=== PATIENT | female | born 1985 | race Caucasian/White ===

== ENCOUNTER 2016-11-14 21:31 | Emergency (ER) | payer OTHER ==
[2016-11-14] MEDS ORDERED: MAG HYDROX/AL HYDROX/SIMETH 30 ML CUP PO STA (21:50)
[2016-11-14] MEDS ORDERED: LIDOCAINE VISCOUS 2% 15 ML CUP MUCOUS MEM STA (21:50)
[2016-11-14] MEDS ORDERED: FAMOTIDINE 20 MG TAB PO STA (21:52)
--- NOTE | 2016-11-14 22:04 | XR ---
EXAMINATION TYPE: XR chest 2V DATE OF EXAM: 11/14/2016 10:01 PM COMPARISON: NONE HISTORY: Burning sensation of the chest. No history of heart or lung disease. TECHNIQUE: Frontal and lateral views of the chest are obtained. FINDINGS: There is no focal air space opacity, pleural effusion, or pneumothorax seen. The cardiac silhouette size is within normal limits. The osseous structures are intact. IMPRESSION: No acute cardiopulmonary process.
--- NOTE | 2016-11-14 22:22 | ED ---
General Adult HPI - General Chief complaint: Chest Pain Stated complaint: burning in chest Time Seen by Provider: 11/14/16 21:46 Source: patient, family, RN notes reviewed Mode of arrival: wheelchair Limitations: no limitations - History of Present Illness Initial comments: 31-year-old female presenting for chest pain. Patient states she feels a burning sensation in her chest for the past week. She also states she has some mild epigastric pain associated. States worse at nighttime when she lays down. She denies any history of these symptoms previously. She denies any shortness of breath. She denies any fevers or chills. She denies any other abdominal pain. She denies any nausea or vomiting. She is not tried any medications that helped this this point. She denies any significant medical history. - Related Data Home Medications Medication Instructions Recorded Confirmed Acetaminophen Tab [Tylenol Tab] 650 mg PO Q4H 11/14/16 11/14/16 Previous Rx's Medication Instructions Recorded HYDROcodone/APAP 5-325MG [[place] 1 tab PO Q6HR PRN #8 tab 11/14/16 5-325] Omeprazole [PriLOSEC] 20 mg PO AC-BRKFST #30 cap 11/14/16 Allergies Allergy/AdvReac Type Severity Reaction Status Date / Time No Known Allergies Allergy Verified 11/14/16 22:08 Review of Systems ROS Statement: Those systems with pertinent positive or pertinent negative responses have been documented in the HPI. ROS Other: All systems not noted in ROS Statement are negative. Past Medical History Past Medical History: No Reported History History of Any Multi-Drug Resistant Organisms: None Reported Past Surgical History: Section Past Psychological History: Depression Smoking Status: Current every day smoker Past Alcohol Use History: Occasional Past Drug Use History: None Reported General Exam - General Exam Comments Initial Comments: General: Awake and Alert. No acute distress. Does not appear acutely ill. Obese. Eyes: LY, EOM intact. No nystagmus. No scleral icterus. HENT: Atraumatic, normocephalic. Mucous membranes moist. Trachea midline. Neck: The neck is supple, there is no tenderness or JVD. Cardiovascular: Regular rate and rhythm. No murmur, rub, or gallop is appreciated. Distal pulses intact. Respiratory: Lungs are clear to auscultation bilaterally. No wheezes, rales, rhonchi. No respiratory distress. Gastrointestinal: Soft, mild epigastric tenderness. No rebound or guarding. Non -distended. No masses or organomegaly noted. No CVA tenderness. Musculoskeletal: Reproducible sternal tenderness on exam. Remainder of MSK exam with no tenderness. Normal ROM. No gross deformity. No strength deficits. Neurological: A&Ox3. CN II-XII grossly intact, There are no obvious motor or sensory deficits. Coordination appears grossly intact. Speech is normal. Skin: Skin is warm and dry and no rashes or lesions are noted. Psychiatric: Cooperative, appropriate mood & affect, normal judgment. Limitations: no limitations Course Vital Signs 11/14/16 21:41 Temperature 98.3 F Pulse Rate 97 Respiratory 18 Rate Blood Pressure 168/77 O2 Sat by Pulse 99 Oximetry EKG Findings - EKG Comments: EKG Findings:: EKG 22:36. Normal sinus rhythm. Rate 79. AL 164. QRS 90. QT/ QTc 388/444. Normal axis. No STEMI. Normal EKG. Medical Decision Making - Medical Decision Making 31-year-old female presenting for epigastric and chest burning sensation. Symptoms consistent with GERD. Low suspicion of ACS, PE, or severe intrathoracic process at this time. Vitals stable, no hypoxia. Exam with mild epigastric tenderness without evidence of acute peritonitis at this time. Chest x-ray was performed which was unremarkable. EKG is also unremarkable. Patient was given medications with improvement of her symptoms. Discussed starting her on omeprazole for symptomatic management. Discussed dietary modifications. Discussed close follow-up with PCP. Discussed concerning signs symptoms for immediate return to the ED. Patient is agreeable with plan and discharge home. - EKG Data -: EKG Interpreted by Me EKG shows normal: sinus rhythm Rate: normal - Radiology Data Radiology results: report reviewed, image reviewed Disposition Clinical Impression: GERD (gastroesophageal reflux disease), Chest pain, Abdominal pain Disposition: HOME SELF-CARE Condition: Stable Instructions: Chest Pain (ED), Abdominal Pain (ED), Gastroesophageal Reflux Disease (ED) Prescriptions: HYDROcodone/APAP 5-325MG [[place] 5-325] 1 tab PO Q6HR PRN #8 tab PRN Reason: Pain Omeprazole [PriLOSEC] 20 mg PO AC-BRKT #30 cap Referrals: None,Stated [Primary Care Provider] - 1-2 days Time of Disposition: 23:00
[2016-11-14] MEDS ORDERED: ONDANSETRON ODT 4 MG TAB PO STA (22:47)
[2016-11-14] MEDS: HYDROcodone/APAP 5-325MG 1 EACH TAB PO STA (22:59)
[2016-11-14 23:06] VITALS: BP 127/76; PULSE 78; RESP 16; TEMP 98.9
== END 2016-11-14 23:05 | disposition home or self-care (01) ==
LOC: EC 21:31
DX: K21.9 Gastro-esophageal reflux disease without esophagitis (principal); R07.9 Chest pain, unspecified; Z79.899 Other long term (current) drug therapy
CPT/HCPCS: 71020; 93005; 99285

== ENCOUNTER 2020-03-19 17:13 | Inpatient (IN) | payer BC, OTHER ==
[2020-03-19] MEDS ORDERED: ONDANSETRON 4 MG/2 ML VIAL IVP STA (17:28)
[2020-03-19] MEDS ORDERED: SODIUM CHLORIDE 0.9% 1,000 ML IV STA (17:28)
[2020-03-19] MEDS ORDERED: MORPHINE SULFATE 2 MG/ML SYRINGE IVP STA (17:28)
--- NOTE | 2020-03-19 17:33 | ED ---
General Adult HPI - General Chief complaint: Abdominal Pain Stated complaint: diverticulitis Time Seen by Provider: 03/19/20 17:20 Source: patient, family, RN notes reviewed, old records reviewed (Discharge papers from [facility]) Mode of arrival: ambulatory Limitations: no limitations - History of Present Illness Initial comments: Patient is a pleasant 34-year-old female presenting to the emergency department with abdominal discomfort. Patient did have similar symptoms around 7 years ago and was diagnosed with diverticulitis then. Patient has had symptoms now for the past 3 days. Patient has diffuse abdominal discomfort. Decreased appetite, minimal nausea. Patient did feel constipated and then took a laxative with diarrhea following this. Unclear if there has been any mucus or blood. Patient is currently on her menses. Patient did go to [facility] early this morning around 4 AM. Patient was discharged around 5:30. There was an intentional transfer however reportedly there was concerns refusal of transfer here and the other 2 ) hospitals were full. Patient does have discharge paperwork showing diagnosis of diverticulitis. Patient reportedly did have fever this morning. Family is present that does help provide history. - Related Data Home Medications Medication Instructions Recorded Confirmed Famotidine [Pepcid] 40 mg PO HS 12/02/16 12/02/16 Metoclopramide [Reglan] 10 mg PO AC-TID 12/02/16 12/02/16 Previous Rx's Medication Instructions Recorded Hydrocodone/Acetaminophen [[place] 1 - 2 each PO Q6HR PRN #20 tab 12/03/16 5-325] Allergies Allergy/AdvReac Type Severity Reaction Status Date / Time No Known Allergies Allergy Verified 03/19/20 17:32 Review of Systems ROS Statement: Those systems with pertinent positive or pertinent negative responses have been documented in the HPI. ROS Other: All systems not noted in ROS Statement are negative. Constitutional: Reports: fever, chills Eyes: Denies: eye pain ENT: Denies: ear pain Respiratory: Denies: dyspnea Cardiovascular: Denies: chest pain Endocrine: Reports: fatigue Gastrointestinal: Reports: as per HPI, abdominal pain, nausea. Denies: vomiting Genitourinary: Denies: dysuria Musculoskeletal: Denies: back pain Skin: Denies: rash Neurological: Denies: weakness Past Medical History Past Medical History: No Reported History History of Any Multi-Drug Resistant Organisms: None Reported Past Surgical History: Section Additional Past Surgical History / Comment(s): 3 sections Past Anesthesia/Blood Transfusion Reactions: No Reported Reaction Additional Past Anesthesia/Blood Transfusion Reaction / Comment(s): patient has never had a blood transfusion Past Psychological History: No Psychological Hx Reported, Depression Past Alcohol Use History: Occasional Past Drug Use History: None Reported - Past Family History Mother History Unknown: Yes General Exam Limitations: no limitations General appearance: alert, in no apparent distress Head exam: Present: normocephalic Eye exam: Present: normal appearance Neck exam: Present: normal inspection Respiratory exam: Present: normal lung sounds bilaterally Cardiovascular Exam: Present: regular rate, normal rhythm Expanded Peripheral pulses: 2+: Dorsalis Pedis (R), Dorsalis Pedis (L) GI/Abdominal exam: Present: soft, tenderness (Mild to moderate diffuse tenderness), normal bowel sounds. Absent: distended, guarding, rebound, rigid, pulsatile mass Extremities exam: Present: normal inspection Neurological exam: Present: alert Psychiatric exam: Present: normal affect, normal mood Skin exam: Present: normal color Course Vital Signs 03/19/20 17:15 Temperature 98.4 F Pulse Rate 103 H Respiratory 18 Rate Blood Pressure 135/90 O2 Sat by Pulse 99 Oximetry - Reevaluation(s) Reevaluation #1: 03/19/20 17:33 We are attempting to get further records from [facility]. 03/19/20 18:58 Patient does meet sepsis criteria diagnosed at 1850. Blood culture and lactic acid ordered. IV antibiotics will be ordered. Medical Decision Making - Medical Decision Making Patient reevaluated. Patient and family updated. Case discussed with Dr. Baker, who will admit covering for surgical call. He is also made aware of our radiologist interpretation. - Lab Data Result diagrams: 03/19/20 18:15 Lab Results 03/19/20 03/19/20 03/19/20 Range/Units 18:03 18:03 18:15 WBC 12.7 H (3.8-10.6) k/uL RBC 3.84 (3.80-5.40) m/uL Hgb 13.0 (11.4-16.0) gm/dL Hct 37.6 (34.0-46.0) % MCV 97.9 (80.0-100.0) fL MCH 33.8 (25.0-35.0) pg MCHC 34.5 (31.0-37.0) g/dL RDW 13.3 (11.5-15.5) % Plt Count 292 (150-450) k/uL Neutrophils % 76 % Lymphocytes % 15 % Monocytes % 5 % Eosinophils % 3 % Basophils % 0 % Neutrophils # 9.7 H (1.3-7.7) k/uL Lymphocytes # 1.9 (1.0-4.8) k/uL Monocytes # 0.6 (0-1.0) k/uL Eosinophils # 0.4 (0-0.7) k/uL Basophils # 0.0 (0-0.2) k/uL PT (9.0-12.0) sec INR (<1.2) APTT (22.0-30.0) sec Urine Color Red Urine Appearance Cloudy H (Clear) Urine pH 5.5 (5.0-8.0) Ur Specific [place] 1.019 (1.001-1.035) Urine Protein 1+ H (Negative) Urine Glucose (UA) Negative (Negative) Urine Ketones 2+ H (Negative) Urine Blood Large H (Negative) Urine Nitrite Negative (Negative) Urine Bilirubin Negative (Negative) Urine Urobilinogen <2.0 (<2.0) mg/dL Ur Leukocyte Esterase Small H (Negative) Urine RBC >182 H (0-5) /hpf Urine WBC 13 H (0-5) /hpf Ur Squamous Epith Cells 4 (0-4) /hpf Urine Bacteria Occasional H (None) /hpf Urine Mucus Rare H (None) /hpf Urine HCG, Qual Not Detected (Not Detectd) 03/19/20 Range/Units 18:15 WBC (3.8-10.6) k/uL RBC (3.80-5.40) m/uL Hgb (11.4-16.0) gm/dL Hct (34.0-46.0) % MCV (80.0-100.0) fL MCH (25.0-35.0) pg MCHC (31.0-37.0) g/dL RDW (11.5-15.5) % Plt Count (150-450) k/uL Neutrophils % % Lymphocytes % % Monocytes % % Eosinophils % % Basophils % % Neutrophils # (1.3-7.7) k/uL Lymphocytes # (1.0-4.8) k/uL Monocytes # (0-1.0) k/uL Eosinophils # (0-0.7) k/uL Basophils # (0-0.2) k/uL PT 10.2 (9.0-12.0) sec INR 1.0 (<1.2) APTT 26.9 (22.0-30.0) sec Urine Color Urine Appearance (Clear) Urine pH (5.0-8.0) Ur Specific [place] (1.001-1.035) Urine Protein (Negative) Urine Glucose (UA) (Negative) Urine Ketones (Negative) Urine Blood (Negative) Urine Nitrite (Negative) Urine Bilirubin (Negative) Urine Urobilinogen (<2.0) mg/dL Ur Leukocyte Esterase (Negative) Urine RBC (0-5) /hpf Urine WBC (0-5) /hpf Ur Squamous Epith Cells (0-4) /hpf Urine Bacteria (None) /hpf Urine Mucus (None) /hpf Urine HCG, Qual (Not Detectd) - Radiology Data Radiology results: image reviewed (KUB shows no evidence of free air or bowel obstruction. Oral contrast extending to rectum. CT of the same day had concern with localized perforation and weak.) Critical Care Time Critical Care Time: Yes Total Critical Care Time: 33 Disposition Clinical Impression: Diverticulitis Disposition: ADMITTED IP TO THIS HOSP Is patient prescribed a controlled substance at d/c from ED?: No Referrals: None,Stated [Primary Care Provider] - 1-2 days Decision Time: 18:58
[2020-03-19 18:27] LABS: Basophils % (A) 0 %; Eosinophils # (A) 0.4 k/uL (0-0.7); Eosinophils % (A) 3 %; HCT 37.6 % (34.0-46.0); Lymphocytes # (A) 1.9 k/uL (1.0-4.8); Lymphocytes % (A) 15 %; MCH 33.8 pg (25.0-35.0); MCHC 34.5 g/dL (31.0-37.0); MCV 97.9 fL (80.0-100.0); Mean Platelet Volume 7.5; Monocytes # (A) 0.6 k/uL (0-1.0); Monocytes % (A) 5 %; Neutrophils # (A) 9.7 k/uL (1.3-7.7); Neutrophils % (A) 76 %; Platelet Count 292 k/uL (150-450); RBC 3.84 m/uL (3.80-5.40); RDW 13.3 % (11.5-15.5); WBC 12.7 k/uL (3.8-10.6)
[2020-03-19 18:36] LABS: Partial Thromboplastin Time 26.9 sec (22.0-30.0); Prothrombin Time 10.2 sec (9.0-12.0)
[2020-03-19 18:40] LABS: Appearance,Urine Cloudy (Clear); Bacteria,Urine Occasional /hpf; Bilirubin,Urine Negative (Negative); Blood,Urine Large (Negative); Color,Urine Red; Glucose,Urine (UA) Negative (Negative); Ketones,Urine 2+ (Negative); Leukocyte Esterase,Urine Small (Negative); Mucus,Urine Rare /hpf; Nitrite,Urine Negative (Negative); PH, Urine 5.5 (5.0-8.0); Protein,Urine 1+ (Negative); RBC,Urine >182 /hpf (0-5); Specific Gravity,Urine 1.019 (1.001-1.035); Squamous Epithelial Cell,Urine 4 /hpf (0-4); Urobilinogen,Urine <2.0 mg/dL (<2.0); WBC,Urine 13 /hpf (0-5)
--- NOTE | 2020-03-19 18:51 | XR ---
EXAMINATION TYPE: XR KUB DATE OF EXAM: 03/19/2020 Comparison: Correlation outside CT same day Clinical History: 34-year-old female with abdominal pain, left-sided. Findings: Oral contrast has progressed into the colon. Cholecystectomy clips. No dilated small bowel or air-flu id levels. Visualized lung bases are clear. No evidence for free intraperitoneal air. Bilateral tubal ligation clips. Impression: No evidence for free air or bowel obstruction. Oral contrast extending to the rectum. The distal sigm oid acute diverticulitis with localized perforation and leak demonstrated on the outside CT of the sa me day.
[2020-03-19 18:54] LABS: ALT 9 U/L (4-34); AST 13 U/L (14-36); African American GFR (CKD) >90 (>60 ml/min/1.73 sqM); Albumin 3.6 g/dL (3.5-5.0); Alkaline Phosphatase 72 U/L (38-126); Amylase 40 U/L (30-110); Anion Gap 9 mmol/L; Blood Urea Nitrogen 13 mg/dL (7-17); Calcium 8.9 mg/dL (8.4-10.2); Carbon Dioxide 22 mmol/L (22-30); Chloride 104 mmol/L (98-107); Glucose 78 mg/dL (74-99); Non-African American GFR(CKD) >90 (>60 ml/min/1.73 sqM); Potassium 3.7 mmol/L (3.5-5.1); Sodium 135 mmol/L (137-145); Total Bilirubin 0.5 mg/dL (0.2-1.3); Total Protein 6.4 g/dL (6.3-8.2)
[2020-03-19] MEDS ORDERED: ONDANSETRON 4 MG/2 ML VIAL IVP PRN (18:59)
[2020-03-19] MEDS ORDERED: NALOXONE 0.4 MG/ML 1 ML VIAL IV PRN (18:59)
[2020-03-19] MEDS: SODIUM CHLORIDE 0.9% 1,000 ML IV SCH (19:32)
[2020-03-19] MEDS: metroNIDAZOLE-NS PMX 500 MG in SALINE 1 100ML.BAG IVPB SCH (19:49)
[2020-03-20] MEDS: MORPHINE SULFATE 4 MG/ML SYRINGE IV PRN ×2 (01:13→22:27)
[2020-03-20] MEDS: metroNIDAZOLE-NS PMX 500 MG in SALINE 1 100ML.BAG IVPB SCH ×4 (01:13→19:49)
[2020-03-20] MEDS: SODIUM CHLORIDE 0.9% 1,000 ML IV SCH ×3 (01:14→22:33)
[2020-03-20] MEDS: LEVOFLOXACIN 750MG-D5W PMX 750 MG in DEXTROSE/WATER 1 150ML.BAG IVPB SCH (04:37)
[2020-03-20] MEDS: PANTOPRAZOLE 40 MG/10 ML VIAL IV SCH (07:26)
[2020-03-20 08:04] LABS: Basophils % (A) 0 %; Eosinophils # (A) 0.4 k/uL (0-0.7); Eosinophils % (A) 4 %; HCT 34.9 % (34.0-46.0); HGB 12.1 gm/dL (11.4-16.0); Lymphocytes # (A) 1.3 k/uL (1.0-4.8); Lymphocytes % (A) 12 %; MCH 33.8 pg (25.0-35.0); MCHC 34.6 g/dL (31.0-37.0); MCV 97.6 fL (80.0-100.0); Mean Platelet Volume 7.5; Monocytes # (A) 0.6 k/uL (0-1.0); Monocytes % (A) 5 %; Neutrophils # (A) 8.6 k/uL (1.3-7.7); Neutrophils % (A) 79 %; Platelet Count 283 k/uL (150-450); RBC 3.58 m/uL (3.80-5.40); RDW 13.3 % (11.5-15.5); WBC 10.9 k/uL (3.8-10.6)
--- NOTE | 2020-03-20 09:36 | P.GSHP ---
History of Present Illness H&P Date: 03/20/20 Chief Complaint: Diverticulitis This a 30 pleural female who was admitted through the emergency room with complaints of left-sided abdominal pain. Patient's CAT scan was consistent with diverticulitis. Patient states he feels better today. Past Medical History Past Medical History: No Reported History History of Any Multi-Drug Resistant Organisms: None Reported Past Surgical History: Section, Cholecystectomy Additional Past Surgical History / Comment(s): 3 sections, with all three they vervived her Past Anesthesia/Blood Transfusion Reactions: No Reported Reaction Additional Past Anesthesia/Blood Transfusion Reaction / Comment(s): patient has never had a blood transfusion Past Psychological History: No Psychological Hx Reported, Depression Smoking Status: Current every day smoker Past Alcohol Use History: Occasional Past Drug Use History: None Reported Additional Drug Use History / Comment(s): smokes half a pack of cigarettes a day - Past Family History Mother History Unknown: Yes Additional Family Medical History / Comment(s): thyroid cancer, CVA Medications and Allergies Home Medications Medication Instructions Recorded Confirmed Type No Known Home Medications 03/19/20 03/19/20 History Allergies Allergy/AdvReac Type Severity Reaction Status Date / Time No Known Allergies Allergy Verified 03/19/20 20:54 Surgical - Exam Vital Signs Temp Pulse Resp BP Pulse Ox 98.4 F 103 H 18 135/90 99 03/19/20 17:15 03/19/20 17:15 03/19/20 17:15 03/19/20 17:15 03/19/20 17:15 - General well developed, well nourished, no distress - Eyes PERRL - ENT normal pinna - Neck no masses - Respiratory normal expansion - Cardiovascular Rhythm: regular - Abdomen Mild left lower quadrant pain. There is no rebound or guarding Abdomen: soft Results - Labs 03/20/20 07:45 03/19/20 18:15 Abnormal Lab Results - Last 24 Hours (Table) 03/19/20 03/19/20 03/19/20 Range/Units 18:03 18:15 18:15 WBC 12.7 H (3.8-10.6) k/uL RBC (3.80-5.40) m/uL Neutrophils # 9.7 H (1.3-7.7) k/uL Sodium 135 L (137-145) mmol/L AST 13 L (14-36) U/L Urine Appearance Cloudy H (Clear) Urine Protein 1+ H (Negative) Urine Ketones 2+ H (Negative) Urine Blood Large H (Negative) Ur Leukocyte Esterase Small H (Negative) Urine RBC >182 H (0-5) /hpf Urine WBC 13 H (0-5) /hpf Urine Bacteria Occasional H (None) /hpf Urine Mucus Rare H (None) /hpf 03/20/20 Range/Units 07:45 WBC 10.9 H (3.8-10.6) k/uL RBC 3.58 L (3.80-5.40) m/uL Neutrophils # 8.6 H (1.3-7.7) k/uL Sodium (137-145) mmol/L AST (14-36) U/L Urine Appearance (Clear) Urine Protein (Negative) Urine Ketones (Negative) Urine Blood (Negative) Ur Leukocyte Esterase (Negative) Urine RBC (0-5) /hpf Urine WBC (0-5) /hpf Urine Bacteria (None) /hpf Urine Mucus (None) /hpf Microbiology - Last 24 Hours (Table) 03/19/20 18:03 Urine Culture - Preliminary Urine,Voided Diabetes panel 03/19/20 Range/Units 18:15 Sodium 135 L (137-145) mmol/L Potassium 3.7 (3.5-5.1) mmol/L Chloride 104 (98-107) mmol/L Carbon Dioxide 22 (22-30) mmol/L BUN 13 (7-17) mg/dL Creatinine 0.78 (0.52-1.04) mg/dL Glucose 78 (74-99) mg/dL Calcium 8.9 (8.4-10.2) mg/dL AST 13 L (14-36) U/L ALT 9 (4-34) U/L Alkaline Phosphatase 72 (38-126) U/L Total Protein 6.4 (6.3-8.2) g/dL Albumin 3.6 (3.5-5.0) g/dL Calcium panel 03/19/20 Range/Units 18:15 Calcium 8.9 (8.4-10.2) mg/dL Albumin 3.6 (3.5-5.0) g/dL Pituitary panel 03/19/20 Range/Units 18:15 Sodium 135 L (137-145) mmol/L Potassium 3.7 (3.5-5.1) mmol/L Chloride 104 (98-107) mmol/L Carbon Dioxide 22 (22-30) mmol/L BUN 13 (7-17) mg/dL Creatinine 0.78 (0.52-1.04) mg/dL Glucose 78 (74-99) mg/dL Calcium 8.9 (8.4-10.2) mg/dL Adrenal panel 03/19/20 Range/Units 18:15 Sodium 135 L (137-145) mmol/L Potassium 3.7 (3.5-5.1) mmol/L Chloride 104 (98-107) mmol/L Carbon Dioxide 22 (22-30) mmol/L BUN 13 (7-17) mg/dL Creatinine 0.78 (0.52-1.04) mg/dL Glucose 78 (74-99) mg/dL Calcium 8.9 (8.4-10.2) mg/dL Total Bilirubin 0.5 (0.2-1.3) mg/dL AST 13 L (14-36) U/L ALT 9 (4-34) U/L Alkaline Phosphatase 72 (38-126) U/L Total Protein 6.4 (6.3-8.2) g/dL Albumin 3.6 (3.5-5.0) g/dL Assessment and Plan Assessment: Diverticula is. Patient will continue receive IV antibiotics. She'll start on clear liquids.
--- NOTE | 2020-03-20 23:16 | P.CON ---
Consult Note - . Consult date: 03/20/20 Assessment/Plan:: Reason for consult- management of chronic medical conditions [facility] - Ms. Gardner is a 34-year-old female with no significant past medical history, who is an every day smoker self discharged from [facility] and admitted here through the emergency Department with a chief complaint of abdominal discomfort. Patient had similar complaints 7 years back and was diagnosed with diverticulitis. Patient states he started to have abdominal pain for the past 3-4 days which is mostly in the left side of the abdomen with pain radiating towards the umbilicus. Patient was having decreased appetite and nauseated. She denies having any emesis. Patient was admitted at [facility] early this morning and was diagnosed with diverticulitis. She wanted to be transferred here, but there was a refusal so she discharged herself from that and came into the ED. The CAT scan of the abdomen done that was showing diverticulitis. Patient has been started on Flagyl and Levaquin and admitted under surgical services. On reviewing the Vitals patient had a fever of 100.1, heart rate 90, blood pressure 113/73, saturating at 97% on room air. On reviewing labs sodium is 135, pretension 3.5, BUN 13, creatinine 0.78, hemoglobin 12.1, white count of 10.5. AST, ALT, alkaline phosphatase within normal limits. Amylase lipase within normal limits. Urinalysis is positive for large blood, small leukocyte esterase along with 13 WBCs. Past Medical History Past Medical History: No Reported History History of Any Multi-Drug Resistant Organisms: None Reported Past Surgical History: Section, Cholecystectomy Additional Past Surgical History / Comment(s): 3 sections, with all three they vervived her Past Anesthesia/Blood Transfusion Reactions: No Reported Reaction Additional Past Anesthesia/Blood Transfusion Reaction / Comment(s): patient has never had a blood transfusion Past Psychological History: No Psychological Hx Reported, Depression Smoking Status: Current every day smoker Past Alcohol Use History: Occasional Past Drug Use History: None Reported Additional Drug Use History / Comment(s): smokes half a pack of cigarettes a day - Past Family History Mother History Unknown: Yes Additional Family Medical History / Comment(s): thyroid cancer, CVA Medications and Allergies Home Medications Medication Instructions Recorded Confirmed Type No Known Home Medications 03/19/20 03/19/20 History Allergies Allergy/AdvReac Type Severity Reaction Status Date / Time No Known Allergies Allergy Verified 03/19/20 20:54 Physical Exam Vitals: Vital Signs Temp Pulse Pulse Resp BP BP Pulse Ox 03/20/20 08:00 75 16 03/20/20 07:00 98.6 F 75 16 127/79 94 L 03/20/20 02:04 100.1 F H 90 17 113/73 95 03/19/20 21:07 98.1 F 84 18 141/75 98 03/19/20 20:18 98.9 F 89 18 153/93 98 03/19/20 19:18 18 03/19/20 18:18 18 03/19/20 17:18 18 03/19/20 17:15 98.4 F 103 H 18 135/90 99 Intake and Output 03/19/20 03/20/20 03/20/20 22:59 06:59 14:59 Other: # Voids 1 1 Weight 106.594 kg PHYSICAL EXAM GEN. APPEARANCE: alert, in no apparent distress HEENT : No pallor. No icterus. RESPIRATORY EXAM: Bilateral breath sounds posterior. No wheezes or crackles CARDIOVASCULAR EXAM: S1 and S2 heard. No abnormal sounds GI/ABDOMINAL EXAM: Mild tenderness in the left upper quadrant of the abdomen. No guarding or rigidity. No CVA tenderness. EXTREMITIES EXAM: No edema. No cyanosis or clubbing. NEUROLOGICAL EXAM: alert, oriented X3, no focal neurological deficits on gross exam PSYCHIATRIC EXAM: normal affect, normal mood SKIN EXAM: warm, dry, intact, normal color. Absent: rash Results CBC & Chem 7: 03/20/20 07:45 03/19/20 18:15 Labs: Abnormal Lab Results - Last 24 Hours (Table) 03/19/20 03/19/20 03/19/20 Range/Units 18:03 18:15 18:15 WBC 12.7 H (3.8-10.6) k/uL RBC (3.80-5.40) m/uL Neutrophils # 9.7 H (1.3-7.7) k/uL Sodium 135 L (137-145) mmol/L AST 13 L (14-36) U/L Urine Appearance Cloudy H (Clear) Urine Protein 1+ H (Negative) Urine Ketones 2+ H (Negative) Urine Blood Large H (Negative) Ur Leukocyte Esterase Small H (Negative) Urine RBC >182 H (0-5) /hpf Urine WBC 13 H (0-5) /hpf Urine Bacteria Occasional H (None) /hpf Urine Mucus Rare H (None) /hpf 03/20/20 Range/Units 07:45 WBC 10.9 H (3.8-10.6) k/uL RBC 3.58 L (3.80-5.40) m/uL Neutrophils # 8.6 H (1.3-7.7) k/uL Sodium (137-145) mmol/L AST (14-36) U/L Urine Appearance (Clear) Urine Protein (Negative) Urine Ketones (Negative) Urine Blood (Negative) Ur Leukocyte Esterase (Negative) Urine RBC (0-5) /hpf Urine WBC (0-5) /hpf Urine Bacteria (None) /hpf Urine Mucus (None) /hpf Microbiology - Last 24 Hours (Table) 03/19/20 18:03 Urine Culture - Preliminary Urine,Voided ASSESSMENT Acute diverticulitis Hematuria PLAN: Patient has been started on levofloxacin and Flagyl for diverticulitis. Urine analysis showed cloudy urine, with large blood, small leukocyte Estrace. Patient states that she had her period couple of days back, could be contamination of the urine. But later on she said she is not having vaginal bleeding. So will repeat urinalysis for tomorrow morning. If still showing blood, might need urology consult. Further recommendations to follow depending on the progress of the patient. Thank you for the consult, will follow the patient.
[2020-03-21] MEDS: metroNIDAZOLE-NS PMX 500 MG in SALINE 1 100ML.BAG IVPB SCH ×2 (02:23→07:33)
[2020-03-21] MEDS: SODIUM CHLORIDE 0.9% 1,000 ML IV SCH (02:26)
[2020-03-21] MEDS: LEVOFLOXACIN 750MG-D5W PMX 750 MG in DEXTROSE/WATER 1 150ML.BAG IVPB SCH (04:39)
[2020-03-21 07:32] VITALS: BP 133/89; PULSE 69; RESP 14; TEMP 98.9
[2020-03-21] MEDS: PANTOPRAZOLE 40 MG/10 ML VIAL IV SCH (07:32)
[2020-03-21 08:13] LABS: Basophils % (A) 0 %; Eosinophils # (A) 0.3 k/uL (0-0.7); Eosinophils % (A) 3 %; HCT 36.1 % (34.0-46.0); Lymphocytes # (A) 1.4 k/uL (1.0-4.8); Lymphocytes % (A) 15 %; MCH 33.2 pg (25.0-35.0); MCHC 33.3 g/dL (31.0-37.0); MCV 99.6 fL (80.0-100.0); Mean Platelet Volume 7.4; Monocytes # (A) 0.5 k/uL (0-1.0); Monocytes % (A) 5 %; Neutrophils # (A) 7.1 k/uL (1.3-7.7); Neutrophils % (A) 76 %; Platelet Count 319 k/uL (150-450); RBC 3.62 m/uL (3.80-5.40); RDW 13.2 % (11.5-15.5); WBC 9.3 k/uL (3.8-10.6)
[2020-03-21 08:24] LABS: African American GFR (CKD) >90 (>60 ml/min/1.73 sqM); Anion Gap 6 mmol/L; Blood Urea Nitrogen 9 mg/dL (7-17); Calcium 8.5 mg/dL (8.4-10.2); Carbon Dioxide 20 mmol/L (22-30); Chloride 110 mmol/L (98-107); Glucose 82 mg/dL (74-99); Non-African American GFR(CKD) >90 (>60 ml/min/1.73 sqM); Potassium 4.8 mmol/L (3.5-5.1); Sodium 136 mmol/L (137-145)
[2020-03-21 08:25] LABS: HCG,Qualitative Serum Not Detected
[2020-03-21 08:30] LABS: Appearance,Urine Clear (Clear); Bacteria,Urine Rare /hpf; Bilirubin,Urine Negative (Negative); Blood,Urine Moderate (Negative); Color,Urine Yellow; Glucose,Urine (UA) Negative (Negative); Ketones,Urine 3+ (Negative); Leukocyte Esterase,Urine Trace (Negative); Mucus,Urine Rare /hpf; Nitrite,Urine Negative (Negative); Protein,Urine Negative (Negative); RBC,Urine <1 /hpf (0-5); Specific Gravity,Urine 1.014 (1.001-1.035); Squamous Epithelial Cell,Urine 2 /hpf (0-4); Urobilinogen,Urine <2.0 mg/dL (<2.0); WBC,Urine 1 /hpf (0-5)
--- NOTE | 2020-03-21 09:27 | P.PN ---
Subjective From records [facility] - Ms. Gardner is a 34-year-old female with no significant past medical history, who is an every day smoker self discharged from [facility] and admitted here through the emergency Department with a chief complaint of abdominal discomfort. Patient had similar complaints 7 years back and was diagnosed with diverticulitis. Patient states he started to have abdominal pain for the past 3-4 days which is mostly in the left side of the abdomen with pain radiating towards the umbilicus. Patient was having decreased appetite and nauseated. She denies having any emesis. Patient was admitted at [facility] early this morning and was diagnosed with diverticulitis. She wanted to be transferred here, but there was a refusal so she discharged herself from that and came into the ED. The CAT scan of the abdomen done that was showing diverticulitis. Patient has been started on Flagyl and Levaquin and admitted under surgical services. On reviewing the Vitals patient had a fever of 100.1, heart rate 90, blood p ressure 113/73, saturating at 97% on room air. On reviewing labs sodium is 135, pretension 3.5, BUN 13, creatinine 0.78, hemoglobin 12.1, white count of 10.5. AST, ALT, alkaline phosphatase within normal limits. Amylase lipase within normal limits. Urinalysis is positive for large blood, small leukocyte esterase along with 13 WBCs. Subjective 03/21/2020 Objective - Vital Signs Vital signs: Vital Signs Temp 98.9 F 03/21/20 07:00 Pulse 69 03/21/20 07:00 Resp 14 03/21/20 07:00 BP 133/89 03/21/20 07:00 Pulse Ox 96 03/21/20 07:00 Intake & Output 03/20/20 03/21/20 03/21/20 18:59 06:59 18:59 Other: # Voids 2 2 - Exam -GENERAL: The patient is alert and oriented x3, not in any acute distress. Obese HEENT: Pupils are round and equally reacting to light. EOMI. No scleral icterus. No conjunctival pallor. Normocephalic, atraumatic. No pharyngeal erythema. No thyromegaly. CARDIOVASCULAR: S1 and S2 present. No murmurs, rubs, or gallops. PULMONARY: Chest is clear to auscultation, no wheezing or crackles. ABDOMEN: Soft, nontender, nondistended, normoactive bowel sounds. No palpable organomegaly. MUSCULOSKELETAL: No joint swelling or deformity. EXTREMITIES: No cyanosis, clubbing, or pedal edema. NEUROLOGICAL: Gross neurological examination did not reveal any focal deficits. SKIN: No rashes. no petechiae. - Labs CBC & Chem 7: 03/21/20 07:48 03/21/20 07:48 Labs: Abnormal Lab Results - Last 24 Hours (Table) 03/21/20 03/21/20 03/21/20 Range/Units 07:48 07:48 08:00 RBC 3.62 L (3.80-5.40) m/uL Sodium 136 L (137-145) mmol/L Chloride 110 H (98-107) mmol/L Carbon Dioxide 20 L (22-30) mmol/L Urine Ketones 3+ H (Negative) Urine Blood Moderate H (Negative) Ur Leukocyte Esterase Trace H (Negative) Urine Bacteria Rare H (None) /hpf Urine Mucus Rare H (None) /hpf Microbiology - Last 24 Hours (Table) 03/19/20 19:45 Blood Culture - Preliminary Blood No Growth after 24 hours 03/19/20 18:03 Urine Culture - Final Urine,Voided Assessment and Plan Assessment: Acute diverticulitis Hematuria Obesity with BMI of 43 Plan: This is a pleasant 54 years old female who presents with left lower quadrant diverticulitis. Continue with antibiotics of Levaquin and Flagyl, continue with parenteral hydration. Continue with pain management. Her primary surgery team of the case Her hematuria is improving gradually, nor urinary symptoms, could be related to her menstrual cycle, patient was instructed to follow up with urologist as an outpatient and she verbalized understanding and acceptance Labs and medication were reviewed.. Continue same treatment. Continue with symptomatic treatment. Resume home medication. Monitor lytes and vitals. DVT and GI prophylaxis. Further recommendations of the clinical course of the patient DVT prophylaxis and pain management as per surgery primary team We recommend patient follow up with her PCP in one week and she agrees. Patient was instructed with the same Thank you for the consult, will follow the patient.
--- NOTE | 2020-03-21 12:10 | P.DS ---
Providers Date of admission: 03/19/20 19:00 Expected date of discharge: 03/21/20 Attending physician: Jez Harrington Consults: 03/20/20 09:37 Consult Physician Routine Consulting Provider: Julianne Fernandes Consult Reason/Comments: Medical management Do you want consulting provider notified?: Yes Primary care physician: Stated None Hospital Course: This a 34-year-old female who's [facility] diverticula is. Patient did well after position. Please hospital chart for details. Patient Condition at Discharge: Good Plan - Discharge Summary Discharge Rx Participant: Yes New Discharge Prescriptions: New Levofloxacin [Levaquin] 500 mg PO DAILY 7 Days #7 tab Discharge Medication List Levofloxacin [Levaquin] 500 mg PO DAILY 7 Days #7 tab 03/21/20 [Rx] Follow up Appointment(s)/Referral(s): None,Stated [Primary Care Provider] - 1-2 days Jez Harrington MD [STAFF PHYSICIAN] - 1 Week Activity/Diet/Wound Care/Special Instructions: Please go to [email or web address] to find local primary care physician.
== END 2020-03-21 13:06 | disposition home or self-care (01) | DRG 392 ==
LOC: EC 17:13 → 4SSUR 19:00
PROVIDERS: ADMIT Surgery; ATTEND Surgery
DX: K57.32 Diverticulitis of large intestine without perforation or abscess without bleeding (principal); Z68.41 Body mass index [BMI] 40.0-44.9, adult; E66.9 Obesity, unspecified; Z11.59 Encounter for screening for other viral diseases; R31.9 Hematuria, unspecified; K59.00 Constipation, unspecified; R11.0 Nausea; F17.210 Nicotine dependence, cigarettes, uncomplicated; Z71.6 Tobacco abuse counseling; Z79.899 Other long term (current) drug therapy; Z98.891 History of uterine scar from previous surgery; Z90.49 Acquired absence of other specified parts of digestive tract; Z87.19 Personal history of other diseases of the digestive system; Z80.8 Family history of malignant neoplasm of other organs or systems; Z82.3 Family history of stroke
CPT/HCPCS: 36415; 74018; 80048; 80053; 81001; 81025; 82150; 83605; 83690; 84703; 85025; 85610; 85730; 87040; 87086; 96361; 96365; 96375; 99291

== ENCOUNTER → 2020-04-07 | Outpatient (CLI) | payer BC, OTHER ==
[2020-04-07 16:56] LABS: HCT 44.7 % (34.0-46.0); HGB 14.5 gm/dL (11.4-16.0); MCH 31.8 pg (25.0-35.0); MCHC 32.3 g/dL (31.0-37.0); MCV 98.2 fL (80.0-100.0); Mean Platelet Volume 7.3; Platelet Count 456 k/uL (150-450); RBC 4.55 m/uL (3.80-5.40); RDW 12.8 % (11.5-15.5); WBC 14.1 k/uL (3.8-10.6)
[2020-04-07 23:18] LABS: Anion Gap 10.3 mmol/L (4.00-12.00); Carbon Dioxide 23.7 mmol/L (21.6-31.8); Potassium 4.8 mmol/L (3.5-5.5)
== END | disposition home or self-care (01) ==
LOC: LABMAIN 15:23
PROVIDERS: ATTEND Internal Medicine Critical Care Medicine
DX: Z01.818 Encounter for other preprocedural examination (principal); K57.32 Diverticulitis of large intestine without perforation or abscess without bleeding
CPT/HCPCS: 36415; 80051; 85027

== ENCOUNTER → 2020-04-13 | Day surgery (SDC) | payer BC, OTHER ==
[2020-04-06 14:57] VITALS: BMI 42.0
[~2020-04-13] MED LIST: LACTATED RINGERS 1,000 ML IV ONE; LACTATED RINGERS 1,000 ML IV SCH; LIDOCAINE 1% (10MG/ML) FOR IV START INTRADERMA ONE; LIDOCAINE 1% INJ 10MG/ML (20 ML MDV) ONE; ONDANSETRON 4 MG/2 ML VIAL IVP PRN; PROPOFOL 10 MG/ML 20 ML VIAL IV ONE
[2020-04-13 11:10] VITALS: TEMP 97.8
--- NOTE | 2020-04-13 11:47 | P.GSHP ---
History of Present Illness H&P Date: 04/13/20 Chief Complaint: Diverticulitis This is a 30-year-old female with history of chronic diverticulitis. Patient presents today for colonoscopy. Past Medical History Past Medical History: No Reported History Additional Past Medical History / Comment(s): ABDOMINAL PAIN/INFECTION. History of Any Multi-Drug Resistant Organisms: None Reported Past Surgical History: Section, Cholecystectomy, Tubal Ligation Additional Past Surgical History / Comment(s): 3 Sections. Past Anesthesia/Blood Transfusion Reactions: Previous Problems w/ Anesthesia Additional Past Anesthesia/Blood Transfusion Reaction / Comment(s): Never had a blood transfusion. PATIENT STATES SHE FLAT LINED AFTER ALL 3 C- SECTIONS, NO PROBLEM WITH OTHER SURGERY. Past Psychological History: Anxiety, Depression, PTSD Smoking Status: Current every day smoker Past Alcohol Use History: Rare Additional Past Alcohol Use History / Comment(s): STARTED SMOKING AT AGE 18, SMOKES 1/2 PPD. Past Drug Use History: None Reported - Past Family History Mother History Unknown: Yes Family Medical History: Cancer, CVA/TIA Additional Family Medical History / Comment(s): Thyroid cancer, CVA. Medications and Allergies Home Medications Medication Instructions Recorded Confirmed Type Acetaminophen Tab [Tylenol Tab] 1,000 mg PO Q6HR PRN 04/06/20 04/11/20 History Allergies Allergy/AdvReac Type Severity Reaction Status Date / Time No Known Allergies Allergy Verified 04/13/20 11:09 Surgical - Exam Vital Signs Temp Pulse Resp BP Pulse Ox 97.8 F 95 18 143/91 97 04/13/20 11:09 04/13/20 11:09 04/13/20 11:09 04/13/20 11:09 04/13/20 11:09 - General well developed, well nourished, no distress - Eyes PERRL - ENT normal pinna - Neck no masses - Respiratory normal expansion - Cardiovascular Rhythm: regular - Abdomen Abdomen: soft, non tender Assessment and Plan Assessment: History of chronic diverticulitis. We'll perform colonoscopy.
--- NOTE | 2020-04-13 11:49 | P.OP ---
Date of Procedure: 04/13/20 Preoperative Diagnosis: Diverticulitis Postoperative Diagnosis: Chronic diverticulitis Procedure(s) Performed: Colonoscopy Anesthesia: EVANGELINA MARTINEZ Surgeon: Jze Harrington Pathology: other (Sigmoid colon) Condition: stable Disposition: PACU Description of Procedure: The patient's placed on the endoscopy table in the lateral position. She received IV sedation. Digital rectal exam was performed which revealed no abnormalities. The flexible colonoscope was then placed patient anus passed throughout the entire colon. The patient significant inflammatory changes of the sigmoid colon. A biopsies were colon performed. Due to risk of perforation colon was decided not to advance the colonoscope any further. The scope was withdrawn. Dr. jean baptiste seen sigmoid colon. The rectum was normal. Scope was withdrawn for patient.
[2020-04-13 12:07] VITALS: BP 122/79; PULSE 83; RESP 18
--- NOTE | 2020-04-17 14:23 | CDI ---
Date: 04.17.2020 CDS/Winch Operator Name: Isabell Knight Phone: If any questions, call Felecia Hudson Delivery Professional at [phone] Patient Name: Antoinette Gardner Admit Date 04.13.20 Discharge Date: 04.13.20 ATTENTION: The [facility] Coding Staff appreciate your assistance in clarifying documentation. Please respond to the clarification below the line at the bottom and electronically sign. The [facility] Coding staff will review the response and follow-up if needed. Please note: Queries are made part of the Legal Health Record. If you have any questions, please contact the Delivery Professional. Dear Dr. Harrington In your colonoscopy report you have documented colonoscope was passed throughout the entire colon, then you documented The patient significant inflammatory changes of the sigmoid colon. A biopsies were colon performed. Due to risk of perforation colon was decided not to advance the colonoscope any further. Please specify at what site the colonoscope was advanced to. Thank you for your kind consideration. Addendum made to operative note MTDD
== END ==
LOC: ORWHC2ENDO 10:56
PROVIDERS: ATTEND Surgery
DX: K57.92 Diverticulitis of intestine, part unspecified, without perforation or abscess without bleeding (principal); F41.9 Anxiety disorder, unspecified; F32.9 Major depressive disorder, single episode, unspecified; F43.10 Post-traumatic stress disorder, unspecified; F17.210 Nicotine dependence, cigarettes, uncomplicated; Z98.890 Other specified postprocedural states; Z90.49 Acquired absence of other specified parts of digestive tract; Z98.51 Tubal ligation status; Z91.89 Other specified personal risk factors, not elsewhere classified; Z88.5 Allergy status to narcotic agent; Z86.19 Personal history of other infectious and parasitic diseases; Z80.8 Family history of malignant neoplasm of other organs or systems; Z82.3 Family history of stroke
CPT/HCPCS: 45331; 45380; 81025; 88305

== ENCOUNTER 2020-04-14 08:07 | Inpatient (IN) | payer BC, OTHER ==
[2020-04-06 12:53] VITALS: BMI 42.0
[~2020-04-14 08:07] MED LIST changes: +ACETAMINOPHEN TAB 500 MG TAB PO ONE; +DEXAMETHASONE SOD PHOSPHATE 10 MG/ML 1 ML VIAL IV ONE; +HEPARIN SODIUM,PORCINE 5,000 UNIT/ML 1 ML VIAL SQ ONE; +HYDROmorphone 0.5 MG/0.5 ML SYRINGE IVP PRN; -LACTATED RINGERS 1,000 ML IV ONE; -LACTATED RINGERS 1,000 ML IV SCH; -LIDOCAINE 1% (10MG/ML) FOR IV START INTRADERMA ONE; +LIDOCAINE 1% (10MG/ML) FOR IV START INTRADERMA PRN; -LIDOCAINE 1% INJ 10MG/ML (20 ML MDV) ONE; +ONDANSETRON 4 MG/2 ML VIAL IVP ONE; -ONDANSETRON 4 MG/2 ML VIAL IVP PRN; -PROPOFOL 10 MG/ML 20 ML VIAL IV ONE; +SCOPOLAMINE 1.5MG/72HR PATCH TRANSDERM ONE; +metroNIDAZOLE-NS PMX 500 MG in SALINE 1 100ML.BAG IVPB ONE
--- NOTE | 2020-04-14 08:30 | P.GSHP ---
History of Present Illness H&P Date: 04/14/20 Chief Complaint: Diverticulitis This a 34-year-old female with chronic history of diverticulitis. Patient presents today for low anterior resection. Patient aware the risks of surgery including possible colostomy, wound infection and bleeding. Past Medical History Past Medical History: No Reported History Additional Past Medical History / Comment(s): ABDOMINAL PAIN/INFECTION. History of Any Multi-Drug Resistant Organisms: None Reported Past Surgical History: Section, Cholecystectomy, Tubal Ligation Additional Past Surgical History / Comment(s): 3 Sections. Past Anesthesia/Blood Transfusion Reactions: Previous Problems w/ Anesthesia Additional Past Anesthesia/Blood Transfusion Reaction / Comment(s): Never had a blood transfusion. PATIENT STATES SHE FLAT LINED AFTER ALL 3 C- SECTIONS, NO PROBLEM WITH OTHER SURGERY. Past Psychological History: Anxiety, Depression, PTSD Smoking Status: Current every day smoker Past Alcohol Use History: Rare Additional Past Alcohol Use History / Comment(s): STARTED SMOKING AT AGE 18, SMOKES 1/2 PPD. Past Drug Use History: None Reported - Past Family History Mother History Unknown: Yes Family Medical History: Cancer, CVA/TIA Additional Family Medical History / Comment(s): Thyroid cancer, CVA. Medications and Allergies Home Medications Medication Instructions Recorded Confirmed Type Acetaminophen Tab [Tylenol Tab] 1,000 mg PO Q6HR PRN 04/06/20 04/14/20 History Allergies Allergy/AdvReac Type Severity Reaction Status Date / Time No Known Allergies Allergy Verified 04/14/20 08:27 Surgical - Exam Vital Signs Temp Pulse Resp BP Pulse Ox 98.2 F 94 16 134/77 96 04/14/20 08:22 04/14/20 08:22 04/14/20 08:22 04/14/20 08:22 04/14/20 08:22 - General well developed, well nourished - Eyes PERRL - ENT normal pinna - Neck no masses - Respiratory normal expansion - Cardiovascular Rhythm: regular - Abdomen Abdomen: soft Assessment and Plan Plan: Diverticulitis, we'll perform low anterior rersection
[2020-04-14] MEDS: LACTATED RINGERS 1,000 ML IV SCH (08:46)
[2020-04-14] MEDS ORDERED: HEPARIN SODIUM,PORCINE 5,000 UNIT/ML 1 ML VIAL ONE (08:49)
[2020-04-14] MEDS ORDERED: ACETAMINOPHEN TAB 500 MG TAB ONE (08:49)
[2020-04-14] MEDS ORDERED: ONDANSETRON 4 MG/2 ML VIAL ONE (08:49)
[2020-04-14] MEDS ORDERED: MIDAZOLAM 2 MG/2 ML VIAL IV ONE (09:19)
[2020-04-14] MEDS ORDERED: fentaNYL (PF) 50 MCG/ML 2 ML AMP IV ONE (09:19)
[2020-04-14] MEDS ORDERED: NALOXONE 0.4 MG/ML 1 ML VIAL IV PRN (09:32)
[2020-04-14] MEDS ORDERED: diphenhydrAMINE 50 MG/ML 1 ML VIAL IVP PRN (09:32)
[2020-04-14] MEDS ORDERED: ONDANSETRON 4 MG/2 ML VIAL IVP PRN ×2 (09:32→12:28)
[2020-04-14] MEDS ORDERED: fentaNYL (PF) 50 MCG/ML 2 ML AMP ONE (10:41)
[2020-04-14] MEDS ORDERED: GLYCOPYRROLATE 0.2 MG/ML 2 ML VIAL ONE (10:41)
[2020-04-14] MEDS ORDERED: ROCURONIUM BROMIDE 10 MG/ML 5 ML VIAL IV ONE (10:41)
[2020-04-14] MEDS ORDERED: ALBUTEROL INHALER 60 PUFF/8 GM INHALER (MHU) INHALATION ONE (10:41)
[2020-04-14] MEDS ORDERED: NEOSTIGMINE 1 MG/ML 10 ML VIAL ONE (10:41)
[2020-04-14] MEDS ORDERED: PROPOFOL 10 MG/ML 20 ML VIAL IV ONE (10:41)
[2020-04-14] MEDS ORDERED: KETAMINE 10 MG/ML 20 ML VIAL ONE (10:41)
[2020-04-14] MEDS ORDERED: LIDOCAINE 1% INJ 10MG/ML (20 ML MDV) ONE (10:41)
[2020-04-14] MEDS ORDERED: LACTATED RINGERS 1,000 ML IV ONE (12:25)
[2020-04-14] MEDS ORDERED: METOCLOPRAMIDE 5 MG/ML 2 ML VIAL IVP PRN (12:28)
[2020-04-14] MEDS: ROPIVACAINE 300 MG, HYDROMORPHONE (PF) 5 MG in SODIUM CHLORIDE 0.9% 190 ML EPIDURAL PRN (12:33)
[2020-04-14] MEDS: D5-0.45% NACL WITH KCL 20MEQ/L 1,000 ML IV SCH ×2 (20:12→22:00)
[2020-04-15] MEDS: D5-0.45% NACL WITH KCL 20MEQ/L 1,000 ML IV SCH ×3 (04:08→22:47)
[2020-04-15] MEDS: LACTATED RINGERS 1,000 ML IV SCH (04:11)
[2020-04-15] MEDS: ALVIMOPAN 12 MG CAPSULE PO SCH ×2 (08:01→22:47)
--- NOTE | 2020-04-15 11:02 | P.PN ---
Progress Note - Text Progress Note Date: 04/15/20 Patient's postoperative day 1 from her procedure. She is doing fairly well. She denies any significant abdominal pain. On exam vital signs are stable. Incision site is clean dry intact. Colostomy is minimal fluid in the colostomy appliance. Status post [place] procedure patient will have her diet advanced once there is significant bowel function.
--- NOTE | 2020-04-15 14:54 | P.PN ---
Progress Note - Text 04/15 3570 34-year-old female status post low anterior resection by Dr. Harrington. Patient has an epidural catheter for postop pain control with the solution running at 8 mL an hour with a VAS of 1 no motor or sensory deficits noted. Plan to continue epidural infusion
--- NOTE | 2020-04-15 16:16 | P.CONS ---
History of Present Illness - Reason for Consult Consult date: 04/15/20 Medical management - Chief Complaint Colon resection and colostomy bag placement - History of Present Illness Patient is a 34-year-old female with a known history of diverticulosis, currently everyday smoker and history of was admitted to the hospital for low anterior resection. Patient underwent surgery and is currently placed on colostomy bag. Postoperatively blood pressure is low. Denied any complaints of dizziness lightheadedness. Patient is currently nothing by mouth except ice chips. No fever no chills. No headache or dizziness or lightheadedness. No chest pain or shortness breath. No cough or sputum production. Review of Systems Constitutional: Patient denies any fever or chills . No generalized weakness or weight loss. Abdomen: Patient does have nausea. Patient denied vomiting and diarrhea and abdominal pain. Cardiovascular: Patient denies any chest pain or short of breath no palpitations. Respiratory: patient denied any cough is from production. No shortness of breath Neurologic: Patient denied any numbness or tingling headache. Musculoskeletal: Patient denies any complaints of joint swelling or deformity. Skin: Negative Psychiatric: Negative Endocrine: No heat or cold intolerance. No recent weight gain. Genitourinary: No dysuria or hematuria. All other 14 point ROS negative except the above Past Medical History Past Medical History: No Reported History Additional Past Medical History / Comment(s): diverticulosis History of Any Multi-Drug Resistant Organisms: None Reported Past Surgical History: Section, Cholecystectomy, Tubal Ligation Additional Past Surgical History / Comment(s): 3 Sections. Past Anesthesia/Blood Transfusion Reactions: Previous Problems w/ Anesthesia Additional Past Anesthesia/Blood Transfusion Reaction / Comm: Never had a blood transfusion. PATIENT STATES SHE FLAT LINED AFTER ALL 3 C- SECTIONS, NO PROBLEM WITH OTHER SURGERY. Past Psychological History: Anxiety, Depression, PTSD Smoking Status: Current every day smoker Past Alcohol Use History: None Reported Additional Past Alcohol Use History / Comment(s): STARTED SMOKING AT AGE 18, SMOKES 1/2 PPD. Past Drug Use History: None Reported Additional Drug Use History / Comment(s): smokes half a pack of cigarettes a day - Past Family History Mother History Unknown: Yes Family Medical History: Cancer, CVA/TIA Additional Family Medical History / Comment(s): Thyroid cancer, CVA. Medications and Allergies Home Medications Medication Instructions Recorded Confirmed Type Acetaminophen Tab [Tylenol Tab] 1,000 mg PO Q6HR PRN 04/06/20 04/14/20 History Allergies Allergy/AdvReac Type Severity Reaction Status Date / Time No Known Allergies Allergy Verified 04/14/20 08:27 Physical Exam Vitals: Vital Signs Temp Pulse Pulse Pulse Resp BP BP 04/15/20 07:00 98.2 F 60 16 93/60 04/15/20 00:10 97.8 F 63 14 106/62 04/14/20 19:34 97.4 F L 64 16 94/63 04/14/20 16:45 86 105/71 04/14/20 16:30 83 102/67 04/14/20 16:15 85 100/68 04/14/20 16:00 85 94/62 04/14/20 15:45 76 103/70 04/14/20 15:30 75 97/66 04/14/20 15:15 78 78/59 04/14/20 15:00 78 98/65 04/14/20 14:45 69 96/64 04/14/20 14:30 68 94/58 04/14/20 14:15 96 118/82 04/14/20 13:30 67 16 146/70 04/14/20 13:15 73 16 143/70 04/14/20 13:00 85 16 158/86 04/14/20 12:48 89 16 158/86 04/14/20 12:33 97.7 F 103 H 20 168/84 04/14/20 10:31 70 16 119/60 Pulse Ox 04/15/20 07:00 94 L 04/15/20 00:10 96 04/14/20 19:34 97 04/14/20 16:45 95 04/14/20 16:30 95 04/14/20 16:15 95 04/14/20 16:00 95 04/14/20 15:45 94 L 04/14/20 15:30 95 04/14/20 15:15 95 04/14/20 15:00 95 04/14/20 14:45 95 04/14/20 14:30 95 04/14/20 14:15 94 L 04/14/20 13:30 97 04/14/20 13:15 97 04/14/20 13:00 98 04/14/20 12:48 98 04/14/20 12:33 97 04/14/20 10:31 97 Intake and Output 04/14/20 04/15/20 04/15/20 22:59 06:59 14:59 Intake Total 200 Output Total 400 Balance -200 Intake: Oral 200 Output: Urine 400 Other: Voiding Method Indwelling Catheter Indwelling Catheter Indwelling Catheter PHYSICAL EXAMINATION: Patient is lying in the bed comfortably, no acute distress, awake alert and oriented.. HEENT: Normocephalic. Neck is supple. Pupils reactive. Nostrils clear. Oral cavity is moist. Ears reveal no drainage. Neck reveals no JVD, carotid bruits, or thyromegaly. CHEST EXAMINATION: Trachea is central. Symmetrical expansion. Bibasilar diminished air entry. Lung fontenot clear to auscultation and percussion. CARDIAC: Normal S1, S2 with no gallops. No murmurs ABDOMEN: Soft. Bowel sounds diminished. Colostomy bag with no stool present.. No organomegaly. No abdominal bruits. Extremities: reveal no edema. No clubbing or cyanosis Neurologically awake, alert, oriented x3 with well-coordinated movements. No focal deficits noted Skin: No rash or skin lesions. Psychiatric: Coperative. Nonsuicidal Musculoskeletal: No joint swelling or deformity. Normal range of motion. Results Labs: Microbiology - Last 24 Hours (Table) 04/14/20 12:30 Gram Stain - Preliminary Other - Other Wound Culture - Preliminary 04/14/20 12:30 Anaerobic Culture - Preliminary Other - Other Assessment and Plan Assessment: Status post low anterior resection of the colon and colostomy bag placement. Postoperative day 1 Diverticulosis Currently everyday smoker Morbid obesity BMI 40.7 DVT prophylaxis Plan: Patient will be continued on IV hydration and will be started on liquid diet today. Symptomatic management for nausea and vomiting. Pain management with epidural. Anesthesia service is following. Encourage incentive spirometry and ambulation. Monitor blood pressure closely. Follow-up electrolytes . Further recommendations based on the clinical course. We will continue to follow with you. Thank you for your consult. Time with Patient: Greater than 30
[2020-04-15] MEDS: ROPIVACAINE 300 MG, HYDROMORPHONE (PF) 5 MG in SODIUM CHLORIDE 0.9% 190 ML EPIDURAL PRN (17:22)
[2020-04-15 17:35] LABS: African American GFR (CKD) >90 (>60 ml/min/1.73 sqM); Anion Gap 4 mmol/L; Blood Urea Nitrogen 4 mg/dL (7-17); Calcium 8.7 mg/dL (8.4-10.2); Carbon Dioxide 27 mmol/L (22-30); Chloride 103 mmol/L (98-107); Glucose 102 mg/dL (74-99); Non-African American GFR(CKD) >90 (>60 ml/min/1.73 sqM); Potassium 4.4 mmol/L (3.5-5.1); Sodium 134 mmol/L (137-145)
[2020-04-15 18:04] LABS: Basophils % (A) 0 %; Eosinophils % (A) 0 %; HCT 37.5 % (34.0-46.0); Lymphocytes # (A) 2.7 k/uL (1.0-4.8); Lymphocytes % (A) 18 %; MCH 31.6 pg (25.0-35.0); MCHC 32.1 g/dL (31.0-37.0); MCV 98.6 fL (80.0-100.0); Mean Platelet Volume 7.6; Monocytes # (A) 0.8 k/uL (0-1.0); Monocytes % (A) 6 %; Neutrophils # (A) 11.3 k/uL (1.3-7.7); Neutrophils % (A) 75 %; Platelet Count 382 k/uL (150-450); RBC 3.81 m/uL (3.80-5.40); RDW 12.6 % (11.5-15.5); WBC 15.1 k/uL (3.8-10.6)
[2020-04-16] MEDS: LACTATED RINGERS 1,000 ML IV SCH (06:10)
[2020-04-16] MEDS: D5-0.45% NACL WITH KCL 20MEQ/L 1,000 ML IV SCH ×3 (06:11→22:28)
[2020-04-16] MEDS: ALVIMOPAN 12 MG CAPSULE PO SCH ×2 (08:01→22:27)
--- NOTE | 2020-04-16 11:55 | P.PN ---
Progress Note - Text Progress Note Date: 04/16/20 The patient feels slightly better. She's had no significant output through her colostomy bag. On exam vital signs are stable. Abdomen soft. Incision site is clean dry tach. Status post [place] procedure for diverticulitis with abscess. Patient to have supportive care.
--- NOTE | 2020-04-16 21:20 | P.PN ---
Progress Note - Text 04/16/202033 34-year-old female status post low anterior resection by Dr. Harrington. Patient has an epidural catheter was solution running at 8 mL an hour with a VAS of 1 with no complains of nausea vomiting. No motor or sensory deficits noted. Patient has been ambulating. Plan to continue epidural infusion and DC the epidural in a.m.
[2020-04-16] MEDS: ROPIVACAINE 300 MG, HYDROMORPHONE (PF) 5 MG in SODIUM CHLORIDE 0.9% 190 ML EPIDURAL PRN (22:33)
--- NOTE | 2020-04-17 00:23 | P.PN ---
Subjective Progress Note Date: 04/16/20 Principal diagnosis: Status post low anterior resection of the colon and colostomy bag placement due to diverticulitis Patient is a 34-year-old female with a known history of diverticulosis, currently everyday smoker and history of was admitted to the hospital for low anterior resection. Patient underwent surgery and is currently placed on colostomy bag. Postoperatively blood pressure is low. Denied any complaints of dizziness lightheadedness. Patient is currently nothing by mouth except ice chips. No fever no chills. No headache or dizziness or lightheadedness. No chest pain or shortness breath. No cough or sputum production. 04/16/2020 patient is status post low anterior resection of the colon and colostomy bag.. Patient is currently sitting in a chair. Still having abdominal discomfort but improving. No flatus or bowel movement yet. Nausea improved. Patient is being continued on epidural for pain management. Patient has been afebrile. Laboratory data showed WBC 15.1 and hemoglobin 12.0 Sodium 134 and potassium 4.4 BUN 14 creatinine 0.55 Current medications reviewed. Objective - Vital Signs Vital signs: Vital Signs Temp 97.9 F 04/16/20 14:47 Pulse 70 04/16/20 14:47 Resp 18 04/16/20 14:47 BP 117/73 04/16/20 14:47 Pulse Ox 99 04/16/20 14:47 Intake & Output 04/15/20 04/16/20 04/16/20 18:59 06:59 18:59 Intake Total 320 540 Output Total 1700 850 900 Balance -1380 850 -360 Intake: Oral 320 540 Output: Urine 1700 850 900 Other: Voiding Method Indwelling Catheter Indwelling Catheter Indwelling Catheter - Exam PHYSICAL EXAMINATION: Patient is lying in the bed comfortably, no acute distress, awake alert and oriented.. HEENT: Normocephalic. Neck is supple. Pupils reactive. Nostrils clear. Oral cavity is moist. Ears reveal no drainage. Neck reveals no JVD, carotid bruits, or thyromegaly. CHEST EXAMINATION: Trachea is central. Symmetrical expansion. Bibasilar diminished air entry. Lung fontenot clear to auscultation and percussion. CARDIAC: Normal S1, S2 with no gallops. No murmurs ABDOMEN: Soft. Bowel sounds diminished. Colostomy bag with no stool present.. No organomegaly. No abdominal bruits. Extremities: reveal no edema. No clubbing or cyanosis Neurologically awake, alert, oriented x3 with well-coordinated movements. No focal deficits noted Skin: No rash or skin lesions. Psychiatric: Coperative. Nonsuicidal Musculoskeletal: No joint swelling or deformity. Normal range of motion. - Labs CBC & Chem 7: 04/15/20 16:42 04/15/20 16:42 Labs: Abnormal Lab Results - Last 24 Hours (Table) 04/15/20 04/15/20 Range/Units 16:42 16:42 WBC 15.1 H (3.8-10.6) k/uL Neutrophils # 11.3 H (1.3-7.7) k/uL Sodium 134 L (137-145) mmol/L BUN 4 L (7-17) mg/dL Glucose 102 H (74-99) mg/dL Microbiology - Last 24 Hours (Table) 04/14/20 12:30 Gram Stain - Preliminary Other - Other Wound Culture - Preliminary Alpha Hemolytic Streptococcus Assessment and Plan Assessment: Status post low anterior resection of the colon and colostomy bag placement. Postoperative day 2 Diverticulosis Leukocytosis likely due to postoperative inflammatory reaction. Currently everyday smoker Morbid obesity BMI 40.7 DVT prophylaxis Plan: Patient will be continued on IV hydration and nothing by mouth. Symptomatic management for nausea and vomiting. Pain management with epidural. Anesthesia service is following. Encourage incentive spirometry and ambulation. Monitor blood pressure closely. Follow-up electrolytes . Further recommendations based on the clinical course. We will continue to follow with you. Thank you for your consult.
[2020-04-17] MEDS: LACTATED RINGERS 1,000 ML IV SCH (07:03)
[2020-04-17] MEDS: D5-0.45% NACL WITH KCL 20MEQ/L 1,000 ML IV SCH ×3 (07:03→22:21)
--- NOTE | 2020-04-17 07:18 | P.PN ---
Progress Note - Text 04/17/20 650am 34-year-old female status post low anterior resection by Dr. Harrington. Patient has an epidural catheter for postop pain control with the solution running at 8 mL an hour with a VAS of 1. No motor or sensory deficits noted. Plan to DC the epidural nurse informed
[2020-04-17 07:49] LABS: Basophils % (A) 0 %; Eosinophils # (A) 0.3 k/uL (0-0.7); Eosinophils % (A) 3 %; HCT 34.3 % (34.0-46.0); HGB 11.1 gm/dL (11.4-16.0); Lymphocytes # (A) 2.8 k/uL (1.0-4.8); Lymphocytes % (A) 31 %; MCH 31.6 pg (25.0-35.0); MCHC 32.2 g/dL (31.0-37.0); MCV 98.1 fL (80.0-100.0); Mean Platelet Volume 7.3; Monocytes # (A) 0.5 k/uL (0-1.0); Monocytes % (A) 5 %; Neutrophils # (A) 5.3 k/uL (1.3-7.7); Neutrophils % (A) 59 %; Platelet Count 326 k/uL (150-450); RDW 12.9 % (11.5-15.5); WBC 9.1 k/uL (3.8-10.6)
[2020-04-17 08:07] LABS: African American GFR (CKD) >90 (>60 ml/min/1.73 sqM); Anion Gap 3 mmol/L; Blood Urea Nitrogen 3 mg/dL (7-17); Calcium 8.4 mg/dL (8.4-10.2); Carbon Dioxide 28 mmol/L (22-30); Chloride 105 mmol/L (98-107); Glucose 81 mg/dL (74-99); Non-African American GFR(CKD) >90 (>60 ml/min/1.73 sqM); Sodium 136 mmol/L (137-145)
[2020-04-17 08:09] LABS: Potassium 4.3 mmol/L (3.5-5.1)
[2020-04-17] MEDS: ALVIMOPAN 12 MG CAPSULE PO SCH ×2 (08:27→20:05)
[2020-04-17] MEDS: HYDROcodone/APAP 5-325MG 1 EACH TAB PO PRN ×3 (11:18→22:51)
[2020-04-17] MEDS: HEPARIN SODIUM,PORCINE 5,000 UNIT/ML 1 ML VIAL SQ SCH ×3 (11:38→22:52)
--- NOTE | 2020-04-17 14:57 | P.PN ---
Subjective Progress Note Date: 04/17/20 CHIEF COMPLAINT: Diverticulitis with abscess HISTORY OF PRESENT ILLNESS: Patient status post Valencia procedure for diverticulitis with abscess. Epidural will be discontinued today. She's having stool through her colostomy. White count normalized and 9.1 PHYSICAL EXAM: VITAL SIGNS: Reviewed. GENERAL: Well-developed in no acute distress. HEENT: No sclera icterus. Extraocular movements grossly intact. Moist buccal mucosa. Head is atraumatic, normocephalic. ABDOMEN: Soft. Incision site clean dry and intact. Stool present in colostomy NEUROLOGIC: Alert and oriented. Cranial nerves II through XII grossly intact. ASSESSMENT: 1. Diverticulitis with abscess status post Valencia procedure and colostomy placement PLAN: -Advance diet to a full liquid -Advised [place] 5/325 one every 6 hours as needed for pain control -And DVT prophylaxis subcu heparin Physician Wafer Fab Technician note has been reviewed by physician. Signing provider agrees with the documented findings, assessment, and plan of care. Objective - Vital Signs Vital signs: Vital Signs Temp 98.8 F 04/17/20 14:46 Pulse 68 04/17/20 14:46 Resp 18 04/17/20 14:46 BP 122/82 04/17/20 14:46 Pulse Ox 98 04/17/20 14:46 Intake & Output 04/16/20 04/17/20 04/17/20 18:59 06:59 18:59 Intake Total 540 235 540 Output Total 900 2000 200 Balance -992 -8723 340 Intake: Intake, IV Titration 235 Amount Ropivacaine 300 mg 235 Hydromorphone (Pf) 5 mg In Sodium Chloride 0.9% 190 ml @ Per Protocol EPIDURAL .Q0M PRN Rx#: [id number] Oral 540 540 Output: Urine 900 2000 200 Other: Voiding Method Indwelling Catheter Indwelling Catheter Indwelling Catheter # Voids 3 - Labs CBC & Chem 7: 04/17/20 07:00 04/17/20 07:00 Labs: Abnormal Lab Results - Last 24 Hours (Table) 04/17/20 04/17/20 Range/Units 07:00 07:00 RBC 3.50 L (3.80-5.40) m/uL Hgb 11.1 L (11.4-16.0) gm/dL Sodium 136 L (137-145) mmol/L BUN 3 L (7-17) mg/dL Microbiology - Last 24 Hours (Table) 04/14/20 12:30 Gram Stain - Final Other - Other Wound Culture - Final Viridans streptococcus group
--- NOTE | 2020-04-17 16:17 | P.PN ---
Subjective Progress Note Date: 04/17/20 Principal diagnosis: Status post low anterior resection of the colon and colostomy bag placement due to diverticulitis Patient is a 34-year-old female with a known history of diverticulosis, currently everyday smoker and history of was admitted to the hospital for low anterior resection. Patient underwent surgery and is currently placed on colostomy bag. Postoperatively blood pressure is low. Denied any complaints of dizziness lightheadedness. Patient is currently nothing by mouth except ice chips. No fever no chills. No headache or dizziness or lightheadedness. No chest pain or shortness breath. No cough or sputum production. 04/16/2020 patient is status post low anterior resection of the colon and colostomy bag.. Patient is currently sitting in a chair. Still having abdominal discomfort but improving. No flatus or bowel movement yet. Nausea improved. Patient is being continued on epidural for pain management. Patient has been afebrile. Laboratory data showed WBC 15.1 and hemoglobin 12.0 Sodium 134 and potassium 4.4 BUN 14 creatinine 0.55 Current medications reviewed. 04/17/2020 Patient is seen and evaluated and follow-up with no acute overnight issues. Continues to be tender in the abdominal area although states has improved today. Patient continues on a epidural pump although is being discontinued today. Patient continues with an indwelling Zapata catheter which will be removed once the epidural has been discontinued. Patient is currently afebrile with no reports of nausea or vomiting noted. Ms. tolerating diet and has currently been advanced. Patient noted to have gas and liquid brown stool noted in the ostomy. White blood count is now within normal limits and 9.1 hemoglobin of 11.1. Sodium is improved at 136 and current creatinine is 0.60. Potassium is 4.3 today. Patient denies any chest pain, shortness of breath, or palpitations. Will continue to follow closely with surgery. Objective - Vital Signs Vital signs: Vital Signs Temp 98.3 F 04/17/20 07:00 Pulse 68 04/17/20 07:00 Resp 16 04/17/20 07:00 BP 128/89 04/17/20 07:00 Pulse Ox 96 04/17/20 07:00 Intake & Output 04/16/20 04/17/20 04/17/20 18:59 06:59 18:59 Intake Total 540 235 Output Total 900 2000 200 Balance -360 -1765 -200 Intake: Intake, IV Titration 235 Amount Ropivacaine 300 mg 235 Hydromorphone (Pf) 5 mg In Sodium Chloride 0.9% 190 ml @ Per Protocol EPIDURAL .Q0M PRN Rx#: [id number] Oral 540 Output: Urine 900 1999 Other: Voiding Method Indwelling Catheter Indwelling Catheter Indwelling Catheter - Exam Patient is lying in the bed comfortably, no acute distress, awake alert and oriented.. HEENT: Normocephalic. Neck is supple. Pupils reactive. Nostrils clear. Oral cavity is moist. Ears reveal no drainage. Neck reveals no JVD, carotid bruits, or thyromegaly. CHEST EXAMINATION: Trachea is central. Symmetrical expansion. Bibasilar diminished air entry. Lung fontenot clear to auscultation and percussion. CARDIAC: Normal S1, S2 with no gallops. No murmurs ABDOMEN: Soft. Bowel sounds diminished. Colostomy bag with brown liquid stool present.. No organomegaly. No abdominal bruits. Extremities: reveal no edema. No clubbing or cyanosis Neurologically awake, alert, oriented x3 with well-coordinated movements. No focal deficits noted Skin: No rash or skin lesions. Psychiatric: Cooperative. Non-suicidal Musculoskeletal: No joint swelling or deformity. Normal range of motion. - Labs CBC & Chem 7: 04/17/20 07:00 04/17/20 07:00 Labs: Abnormal Lab Results - Last 24 Hours (Table) 04/17/20 04/17/20 Range/Units 07:00 07:00 RBC 3.50 L (3.80-5.40) m/uL Hgb 11.1 L (11.4-16.0) gm/dL Sodium 136 L (137-145) mmol/L BUN 3 L (7-17) mg/dL Microbiology - Last 24 Hours (Table) 04/14/20 12:30 Gram Stain - Final Other - Other Wound Culture - Final Viridans streptococcus group Assessment and Plan Assessment: Status post low anterior resection of the colon and colostomy bag placement. Postoperative day 3 Diverticulosis Leukocytosis likely due to postoperative inflammatory reaction. Currently everyday smoker Morbid obesity BMI 40.7 DVT prophylaxis Plan: Patient will be continued on IV hydration and diet is being advanced. Symptomatic management for nausea and vomiting. She currently denies any nausea or vomiting and has been tolerating diet. Pain management per primary service. Epidural pump is being discontinued today. Encourage incentive spirometry and ambulation. Monitor blood pressure closely. Follow-up electrolytes . Further recommendations based on the clinical course. We will continue to follow with you.
[2020-04-17] MEDS ORDERED: HYDROmorphone 1 MG/ML 1 ML SYRINGE IVP PRN (19:58)
[2020-04-18] MEDS: HYDROcodone/APAP 5-325MG 1 EACH TAB PO PRN ×3 (05:07→17:58)
[2020-04-18] MEDS: D5-0.45% NACL WITH KCL 20MEQ/L 1,000 ML IV SCH ×3 (05:07→23:19)
[2020-04-18] MEDS: ALVIMOPAN 12 MG CAPSULE PO SCH ×2 (08:35→20:14)
[2020-04-18] MEDS: HEPARIN SODIUM,PORCINE 5,000 UNIT/ML 1 ML VIAL SQ SCH ×3 (08:35→23:20)
--- NOTE | 2020-04-18 13:35 | P.PN ---
Subjective Progress Note Date: 04/18/20 CHIEF COMPLAINT: Diverticulitis with abscess HISTORY OF PRESENT ILLNESS: Patient seen and examined with Dr. Harrington. Patient status post Valencia procedure for diverticulitis with abscess. She's having stool through her colostomy. Patient did need IV Dilaudid during the evening. Abdominal pain is showing improvement. Afebrile. PHYSICAL EXAM: VITAL SIGNS: Reviewed. GENERAL: Well-developed in no acute distress. HEENT: No sclera icterus. Extraocular movements grossly intact. Moist buccal mucosa. Head is atraumatic, normocephalic. ABDOMEN: Soft. Incision site clean dry and intact. Stool present in colostomy NEUROLOGIC: Alert and oriented. Cranial nerves II through XII grossly intact. ASSESSMENT: 1. Diverticulitis with abscess status post Valencia procedure and colostomy placement PLAN: -Continue full liquid diet -Continue [place] 5/325 one every 6 hours as needed for pain control -Continue IV Dilaudid as needed for pain -And DVT prophylaxis subcu heparin -Encourage patient to ambulate Physician Forensic Engineer note has been reviewed by physician. Signing provider agrees with the documented findings, assessment, and plan of care. Objective - Vital Signs Vital signs: Vital Signs Temp 98.4 F 04/18/20 07:00 Pulse 80 04/18/20 07:00 Resp 16 04/18/20 07:00 BP 132/87 04/18/20 07:00 Pulse Ox 95 04/18/20 07:00 Intake & Output 04/17/20 04/18/20 04/18/20 18:59 06:59 18:59 Intake Total 540 400 Output Total 200 1600 Balance 340 -1200 Intake: Oral 540 400 Output: Urine 200 1600 Other: Voiding Method Indwelling Catheter # Voids 3 2 - Labs CBC & Chem 7: 04/17/20 07:00 04/17/20 07:00 Labs: Microbiology - Last 24 Hours (Table) 04/14/20 12:30 Anaerobic Culture - Final Other - Other Anaerobic Gm Negative Bacilli
[2020-04-18] MEDS: LACTATED RINGERS 1,000 ML IV SCH (18:20)
--- NOTE | 2020-04-18 22:27 | P.PN ---
Subjective Progress Note Date: 04/18/20 Principal diagnosis: Status post low anterior resection of the colon and colostomy bag placement due to diverticulitis Patient is a 34-year-old female with a known history of diverticulosis, currently everyday smoker and history of was admitted to the hospital for low anterior resection. Patient underwent surgery and is currently placed on colostomy bag. Postoperatively blood pressure is low. Denied any complaints of dizziness lightheadedness. Patient is currently nothing by mouth except ice chips. No fever no chills. No headache or dizziness or lightheadedness. No chest pain or shortness breath. No cough or sputum production. 04/16/2020 patient is status post low anterior resection of the colon and colostomy bag.. Patient is currently sitting in a chair. Still having abdominal discomfort but improving. No flatus or bowel movement yet. Nausea improved. Patient is being continued on epidural for pain management. Patient has been afebrile. Laboratory data showed WBC 15.1 and hemoglobin 12.0 Sodium 134 and potassium 4.4 BUN 14 creatinine 0.55 Current medications reviewed. 04/17/2020 Patient is seen and evaluated and follow-up with no acute overnight issues. Continues to be tender in the abdominal area although states has improved today. Patient continues on a epidural pump although is being discontinued today. Patient continues with an indwelling Marcum catheter which will be removed once the epidural has been discontinued. Patient is currently afebrile with no reports of nausea or vomiting noted. Ms. tolerating diet and has currently been advanced. Patient noted to have gas and liquid brown stool noted in the ostomy. White blood count is now within normal limits and 9.1 hemoglobin of 11.1. Sodium is improved at 136 and current creatinine is 0.60. Potassium is 4.3 today. Patient denies any chest pain, shortness of breath, or palpitations. Will continue to follow closely with surgery. 04/18/2020 Patient is seen in follow up with some mild abdominal discomfort but manageable on oral pain medications. Epidural has been discontinued along with indwelling marcum catheter and patient is voiding with no dysuria or retention. Good output in the ostomy noted. Patient to receive education by ostomy nurse today. Patient is tolerating diet with no reports of nausea or vomiting noted. Patient anticipating possible discharge tomorrow. Patient will have home care in the outpatient setting. Review of systems: Constitutional: Reports fatigue, no reports of fevers or chills Cardiovascular: No reports of chest pain or palpitations Respiratory: No reports of shortness of breath, denies cough GI: no reports of nausea with no reports of vomiting : no reports of dysuria or retention Neurovascular: no Reports of weakness, no reports of numbness All medications have been reviewed. Objective - Vital Signs Vital signs: Vital Signs Temp 98.4 F 04/18/20 07:00 Pulse 80 04/18/20 07:00 Resp 16 04/18/20 07:00 BP 132/87 04/18/20 07:00 Pulse Ox 95 04/18/20 07:00 Intake & Output 04/17/20 04/18/20 04/18/20 18:59 06:59 18:59 Intake Total 540 400 Output Total 200 1600 Balance 340 -1200 Intake: Oral 540 400 Output: Urine 200 1600 Other: Voiding Method Indwelling Catheter # Voids 3 2 - Exam Patient is lying in the bed comfortably, no acute distress, awake alert and oriented.. HEENT: Normocephalic. Neck is supple. Pupils reactive. Nostrils clear. Oral cavity is moist. Ears reveal no drainage. Neck reveals no JVD, carotid bruits, or thyromegaly. CHEST EXAMINATION: Trachea is central. Symmetrical expansion. Bibasilar diminished air entry. Lung fontenot clear to auscultation and percussion. CARDIAC: Normal S1, S2 with no gallops. No murmurs ABDOMEN: Soft. Bowel sounds diminished. Colostomy bag with brown liquid stool and gas present.. No organomegaly. No abdominal bruits. Extremities: reveal no edema. No clubbing or cyanosis Neurologically awake, alert, oriented x3 with well-coordinated movements. No focal deficits noted Skin: No rash or skin lesions. Psychiatric: Cooperative. Non-suicidal Musculoskeletal: No joint swelling or deformity. Normal range of motion. - Labs CBC & Chem 7: 04/17/20 07:00 04/17/20 07:00 Labs: Microbiology - Last 24 Hours (Table) 04/14/20 12:30 Anaerobic Culture - Final Other - Other Anaerobic Gm Negative Bacilli Assessment and Plan Assessment: Status post low anterior resection of the colon and colostomy bag placement. Postoperative day 4 Diverticulosis Leukocytosis likely due to postoperative inflammatory reaction, improved Current everyday smoker Morbid obesity BMI 40.7 DVT prophylaxis Plan: Patient diet is being advanced and tolerating. Symptomatic management for nausea and vomiting. She currently denies any nausea or vomiting and has been tolerating diet. Pain management per primary service. Encourage incentive spirometry and ambulation. Monitor blood pressure closely. Follow-up electrolytes . Further recommendations based on the clinical course. We will continue to follow with you. Anticipate discharge in 24 hours.
[2020-04-19] MEDS: HYDROcodone/APAP 5-325MG 1 EACH TAB PO PRN ×2 (00:15→11:58)
[2020-04-19 01:37] VITALS: PULSE 72
[2020-04-19] MEDS: D5-0.45% NACL WITH KCL 20MEQ/L 1,000 ML IV SCH ×2 (05:07→14:35)
[2020-04-19] MEDS: LACTATED RINGERS 1,000 ML IV SCH (05:08)
[2020-04-19 07:15] LABS: African American GFR (CKD) >90 (>60 ml/min/1.73 sqM); Anion Gap 5 mmol/L; Blood Urea Nitrogen 5 mg/dL (7-17); Calcium 9.1 mg/dL (8.4-10.2); Carbon Dioxide 28 mmol/L (22-30); Chloride 104 mmol/L (98-107); Glucose 83 mg/dL (74-99); Non-African American GFR(CKD) >90 (>60 ml/min/1.73 sqM); Potassium 4.7 mmol/L (3.5-5.1); Sodium 137 mmol/L (137-145)
[2020-04-19 07:24] LABS: Basophils # (A) 0.1 k/uL (0-0.2); Basophils % (A) 1 %; Eosinophils # (A) 0.5 k/uL (0-0.7); Eosinophils % (A) 5 %; HCT 36.8 % (34.0-46.0); HGB 11.9 gm/dL (11.4-16.0); Lymphocytes # (A) 2.5 k/uL (1.0-4.8); Lymphocytes % (A) 25 %; MCHC 32.4 g/dL (31.0-37.0); MCV 95.7 fL (80.0-100.0); Mean Platelet Volume 7.4; Monocytes # (A) 0.5 k/uL (0-1.0); Monocytes % (A) 5 %; Neutrophils # (A) 6.3 k/uL (1.3-7.7); Neutrophils % (A) 63 %; Platelet Count 401 k/uL (150-450); RBC 3.84 m/uL (3.80-5.40); RDW 12.9 % (11.5-15.5)
[2020-04-19 08:18] VITALS: BP 143/81; RESP 16; TEMP 98.3
[2020-04-19] MEDS: ALVIMOPAN 12 MG CAPSULE PO SCH (08:26)
[2020-04-19] MEDS: HEPARIN SODIUM,PORCINE 5,000 UNIT/ML 1 ML VIAL SQ SCH (08:29)
[2020-04-19] MEDS ORDERED: diphenhydrAMINE 25 MG CAP PO PRN (11:14)
--- NOTE | 2020-04-19 11:52 | P.DS ---
Providers Date of admission: 04/14/20 08:07 Expected date of discharge: 04/19/20 Attending physician: Jez Harrington Consults: 04/14/20 12:28 Consult Physician Routine Consulting Provider: Julianne Fernandes Consult Reason/Comments: Medical management Do you want consulting provider notified?: Yes Primary care physician: Stated None Hospital Course: Discharge diagnosis 1. Diverticulitis with abscess status post Valencia procedure and colostomy placement Hospital course This a 34-year-old female with chronic history of diverticulitis. She is status post Valencia procedure with colostomy placement. She is having stool through her colostomy bag. She is afebrile. She is up and ambulating. She is tolerating diet. Denies any nausea or vomiting. Her pain is controlled at discharge. She is stable for discharge home today. Physician Machine Zipper Trimmer note has been reviewed by physician. Signing provider agrees with the documented findings, assessment, and plan of care. Patient Condition at Discharge: Stable Plan - Discharge Summary Discharge Rx Participant: Yes New Discharge Prescriptions: New Docusate [Colace] 100 mg PO BID #30 capsule Hydrocodone/Acetaminophen [[place] 5-325] 1 tab PO Q6HR PRN 3 Days #12 tab PRN Reason: Pain Discontinued Acetaminophen Tab [Tylenol Tab] 1,000 mg PO Q6HR PRN PRN Reason: PAIN Discharge Medication List Docusate [Colace] 100 mg PO BID #30 capsule 04/19/20 [Rx] Hydrocodone/Acetaminophen [[place] 5-325] 1 tab PO Q6HR PRN 3 Days #12 tab 04/19/20 [Rx] Follow up Appointment(s)/Referral(s): [facility], [NON-STAFF] - Patient Instructions/Handouts: Diverticulitis (GEN), Colostomy Care (GEN) Activity/Diet/Wound Care/Special Instructions: Ostomy Recommendations for Home: Last pouching system change: 04.18.2020 [facility] will supply the following colostomy care supplies for home as follows: [employer] one piece cut to fit with filter #[id number] (3 from the hospital) No sting prep pads (10 from the hospital) Ostomy powder (1 from the hospital) [employer] flange # [id number] (2 from the hospital) Convatec pouch to go with the above flange # [id number] (2 from the hospital) Efraín seal to to placed in skin crease priro to placement of the flange 2" ring (3 from the hospital) Mrs Gardner is to change the pouching system every 3-5 days until she is in a disposable pouching system Mrs Gardner is to empty the pouching system when the pouch is 1/2 to 1/3 full while sitting on the toilet and draining into the toilet. Mrs Gardner will have free samples from [employer] delivered to her home in 5-7 days after discharge from the hospital Home Health to set up Mrs Gardner for ostomy supplies as disposable pouching system in 2-3 weeks from discharge from the hospital Cathy Robison MD, [facility] [phone] taking [place] No lifting over 10 pounds You may shower. No soaking or tub baths for 2 weeks Very light activity until you are reevaluated at your follow up appointment with your surgeon Diet regular Discharge Disposition: HOME SELF-CARE
--- NOTE | 2020-04-19 15:12 | P.PN ---
Subjective Progress Note Date: 04/19/20 Principal diagnosis: Status post low anterior resection of the colon and colostomy bag placement due to diverticulitis Patient is a 34-year-old female with a known history of diverticulosis, currently everyday smoker and history of was admitted to the hospital for low anterior resection. Patient underwent surgery and is currently placed on colostomy bag. Postoperatively blood pressure is low. Denied any complaints of dizziness lightheadedness. Patient is currently nothing by mouth except ice chips. No fever no chills. No headache or dizziness or lightheadedness. No chest pain or shortness breath. No cough or sputum production. 04/16/2020 patient is status post low anterior resection of the colon and colostomy bag.. Patient is currently sitting in a chair. Still having abdominal discomfort but improving. No flatus or bowel movement yet. Nausea improved. Patient is being continued on epidural for pain management. Patient has been afebrile. Laboratory data showed WBC 15.1 and hemoglobin 12.0 Sodium 134 and potassium 4.4 BUN 14 creatinine 0.55 Current medications reviewed. 04/17/2020 Patient is seen and evaluated and follow-up with no acute overnight issues. Continues to be tender in the abdominal area although states has improved today. Patient continues on a epidural pump although is being discontinued today. Patient continues with an indwelling Marcum catheter which will be removed once the epidural has been discontinued. Patient is currently afebrile with no reports of nausea or vomiting noted. Ms. tolerating diet and has currently been advanced. Patient noted to have gas and liquid brown stool noted in the ostomy. White blood count is now within normal limits and 9.1 hemoglobin of 11.1. Sodium is improved at 136 and current creatinine is 0.60. Potassium is 4.3 today. Patient denies any chest pain, shortness of breath, or palpitations. Will continue to follow closely with surgery. 04/18/2020 Patient is seen in follow up with some mild abdominal discomfort but manageable on oral pain medications. Epidural has been discontinued along with indwelling marcum catheter and patient is voiding with no dysuria or retention. Good output in the ostomy noted. Patient to receive education by ostomy nurse today. Patient is tolerating diet with no reports of nausea or vomiting noted. Patient anticipating possible discharge tomorrow. Patient will have home care in the outpatient setting. Review of systems: Constitutional: Reports fatigue, no reports of fevers or chills Cardiovascular: No reports of chest pain or palpitations Respiratory: No reports of shortness of breath, denies cough GI: no reports of nausea with no reports of vomiting : no reports of dysuria or retention Neurovascular: no Reports of weakness, no reports of numbness All medications have been reviewed. 04/19/2020 Patient is seen and evaluated and follow-up with no acute overnight issues. Patient is scheduled to be discharged today. Patient is tolerating diet with no reports of nausea or vomiting noted. Patient has been up and increasing activity as tolerated. Continues to have stool output in the ostomy and did receive education and training yesterday with the ostomy nurse. Patient will be having home care in the outpatient setting and is receiving supplies per case management. Patient denies any chest pain, shortness of breath, or palpitations. Patient is afebrile. Objective - Vital Signs Vital signs: Vital Signs Temp 98.3 F 04/19/20 07:00 Pulse 72 04/19/20 07:00 Resp 16 04/19/20 07:00 BP 143/81 04/19/20 07:00 Pulse Ox 96 04/19/20 07:00 Intake & Output 04/18/20 04/19/20 04/19/20 18:59 06:59 18:59 Intake Total 370 240 Output Total 100 100 Balance -100 270 240 Intake: Intake, IV Titration 250 Amount D5-0.45% NaCl with KCl 250 20Meq/l 1,000 ml @ 125 mls/hr IV .Q8H [facility] Rx#: [id number] Oral 120 240 Output: Stool 100 100 Other: Voiding Method Toilet # Voids 2 1 3 - Exam Patient is sitting up at the side of the bed comfortably, no acute distress, awake alert and oriented.. HEENT: Normocephalic. Neck is supple. Pupils reactive. Nostrils clear. Oral cavity is moist. Ears reveal no drainage. Neck reveals no JVD, carotid bruits, or thyromegaly. CHEST EXAMINATION: Trachea is central. Symmetrical expansion. Bibasilar diminished air entry. Lung fontenot clear to auscultation and percussion. CARDIAC: Normal S1, S2 with no gallops. No murmurs ABDOMEN: Soft. Bowel sounds diminished. Colostomy bag with brown liquid stool and gas present.. No organomegaly. No abdominal bruits. Extremities: reveal no edema. No clubbing or cyanosis Neurologically awake, alert, oriented x3 with well-coordinated movements. No focal deficits noted Skin: No rash or skin lesions. Psychiatric: Cooperative. Non-suicidal Musculoskeletal: No joint swelling or deformity. Normal range of motion. - Labs CBC & Chem 7: 04/19/20 06:19 04/19/20 06:19 Labs: Abnormal Lab Results - Last 24 Hours (Table) 04/19/20 Range/Units 06:19 BUN 5 L (7-17) mg/dL Assessment and Plan Assessment: Status post low anterior resection of the colon and colostomy bag placement. Postoperative day 5 Diverticulosis Leukocytosis likely due to postoperative inflammatory reaction, improved Current everyday smoker Morbid obesity BMI 40.7 DVT prophylaxis Plan: Patient diet is being advanced and tolerating. She currently denies any nausea or vomiting and has been tolerating diet. Pain management per primary service. Encourage incentive spirometry and ambulation. Monitor blood pressure closely. Further recommendations based on the clinical course. We will continue to follow with you. She is awaiting discharge today. Patient will continue with home care in the outpatient setting.
--- NOTE | 2020-04-24 09:54 | P.OP ---
Date of Procedure: 04/14/20 Preoperative Diagnosis: Diverticulitis Postoperative Diagnosis: Colitis with abscess Left ovarian cyst Procedure(s) Performed: Scott procedure Left ovarian cystectomy Anesthesia: JUAN Surgeon: Jez Harrington Estimated Blood Loss (ml): 25 Pathology: other Condition: stable Disposition: PACU Description of Procedure: The patient's placed on the operating table in the the supine position. She was then placed in dorsolithotomy position after receiving general anesthesia. Her abdomen and perineum were prepped and draped usual sterile fashion. The antrum was entered through a low midline incision. The Bookwalter tract with wound. The patient has significant inflammatory changes in the rectosigmoid area related to chronic diverticulitis. There was a large left ovarian cyst. The ovarian cystectomy performed by incising the cyst. This point the left colon was mobilized by dividing the white line of Toldt and then the; was mobilized by dividing the attachments of the sigmoid colon. The proximal sigmoid colon was transected using the GI stapler and then using the Enseal device the mesentery of the bowel was divided. The patient had chronically inflamed sigmoid colon near the rectosigmoid junction. There was an abscess cavity entered. This was aspirated and cultured. The rectum was then transected with the contour stapler. The abdomen was irrigated there is no being seen. It was decided not to perform a anastomosis due to the inflammatory changes of the rectum. The suitable spot for the colostomy was chosen on the left abdominal wall. The colostomy site was created. The colon was then brought up through the colostomy site. The fascia was then closed in looped #1 PDS suture. Skin was closed felipe. The colostomy then matured with 3-0 Vicryl suture. Patient sent to recovery in stable condition.
== END 2020-04-19 14:42 | disposition home health service (06) | DRG 330 ==
LOC: 2ORMAIN 08:07 → 4SSUR 13:03
PROVIDERS: ADMIT Surgery; ATTEND Surgery
DX: K57.80 Diverticulitis of intestine, part unspecified, with perforation and abscess without bleeding (principal); Z68.41 Body mass index [BMI] 40.0-44.9, adult; E66.01 Morbid (severe) obesity due to excess calories; F17.200 Nicotine dependence, unspecified, uncomplicated; F32.9 Major depressive disorder, single episode, unspecified; F43.10 Post-traumatic stress disorder, unspecified; F41.9 Anxiety disorder, unspecified; Z98.51 Tubal ligation status; Z90.49 Acquired absence of other specified parts of digestive tract; Z80.8 Family history of malignant neoplasm of other organs or systems; Z82.3 Family history of stroke; Z98.891 History of uterine scar from previous surgery; K52.9 Noninfective gastroenteritis and colitis, unspecified; N83.202 Unspecified ovarian cyst, left side
CPT/HCPCS: 36415; 45380; 80048; 81025; 85025; 86850; 86900; 86901; 87070; 87075; 87077; 87186; 87205; 88305; 88307

== ENCOUNTER 2020-05-07 23:29 | Emergency (ER) | payer BC, OTHER ==
[2020-05-07 23:34] VITALS: BP 152/100; PULSE 87; RESP 18; TEMP 98.3
[2020-05-08] MEDS ORDERED: CEPHALEXIN 500MG STARTER PACK 4 CAP BTL PO STA (00:23)
--- NOTE | 2020-05-08 00:25 | ED ---
Recheck HPI - General Chief Complaint: Recheck/Abnormal Lab/Rx Stated Complaint: Post Op Drainage Time Seen by Provider: 05/07/20 23:57 Source: patient Mode of arrival: ambulatory - History of Present Illness Initial Comments: Antoinette is a 34 yo female who underwent a colectomy with ostomy placement with Dr. Wills last week. Patient has been doing well in the postoperative course she does have 2 small nonhealing areas on her incision. Patient reports that tonight she noted some clear and yellowish drainage from the incision, she contacted her surgeon who advised her to come to the ER for further evaluation. Patient denies any fevers chills nausea or vomiting. She denies any pain at the site. She reports she's had good stool output from her ostomy. - Related Data Previous Rx's Medication Instructions Recorded Docusate [Colace] 100 mg PO BID #30 capsule 04/19/20 Hydrocodone/Acetaminophen [Liberty 1 tab PO Q6HR PRN 3 Days #12 tab 04/19/20 5-325] Cephalexin [Keflex] 500 mg PO Q8HR 3 Days #9 cap 05/08/20 Allergies Allergy/AdvReac Type Severity Reaction Status Date / Time No Known Allergies Allergy Verified 05/07/20 23:34 Review of Systems ROS Statement: Those systems with pertinent positive or pertinent negative responses have been documented in the HPI. ROS Other: All systems not noted in ROS Statement are negative. Past Medical History Past Medical History: No Reported History Additional Past Medical History / Comment(s): diverticulosis History of Any Multi-Drug Resistant Organisms: None Reported Past Surgical History: Section, Cholecystectomy, Tubal Ligation Additional Past Surgical History / Comment(s): 3 Sections. Past Anesthesia/Blood Transfusion Reactions: Previous Problems w/ Anesthesia Additional Past Anesthesia/Blood Transfusion Reaction / Comment(s): Never had a blood transfusion. PATIENT STATES SHE FLAT LINED AFTER ALL 3 C- SECTIONS, NO PROBLEM WITH OTHER SURGERY. Past Psychological History: Anxiety, Depression, PTSD Smoking Status: Current every day smoker Past Alcohol Use History: None Reported Past Drug Use History: None Reported - Past Family History Mother History Unknown: Yes Family Medical History: Cancer, CVA/TIA Additional Family Medical History / Comment(s): Thyroid cancer, CVA. General Exam - General Exam Comments Initial Comments: Physical Exam GENERAL: Patient is well-developed and well-nourished. Patient is nontoxic and well-hydrated and is in no distress. HENT: Normocephalic, Atraumatic. EYES: PERRL, EOMI PULMONARY: Unlabored respirations. CARDIOVASCULAR: RRR Warm and well perfused extremities ABDOMEN: Non-distended, ostomy in LLQ pink, patent, productive of brown stool SKIN: Midline incision, felipe removed, some areas of delayed healing, no surrounding erythema or tenderness : Deferred NEUROLOGIC: Alert and oriented Normal speech Normal gait MUSCULOSKELETAL: Moving all extremities with no apparent injury PSYCHIATRIC: No SI/HI Course Vital Signs 05/07/20 23:31 Temperature 98.3 F Pulse Rate 87 Respiratory 18 Rate Blood Pressure 152/100 O2 Sat by Pulse 99 Oximetry Medical Decision Making - Medical Decision Making The patient was seen and evaluated history is obtained from the patient and review of medical record Physical exam does reveal some clear yellowish drainage from the incision, no palpable fluctuance no significant surrounding erythema or signs of cellulitis since then patient be prescribed Keflex and follow up with her surgeon on Friday close return parameters were discussed all questions pertaining care were answered the patient was discharged home in stable condition Disposition Clinical Impression: Visit for wound check Disposition: HOME SELF-CARE Condition: Stable Additional Instructions: Take your antibiotics as prescribed Call Dr Wills's office friday for follow up Return for any worsening redness, drainage or pain at the incision or development of fever, vomiting or inability to keep your antibiotics down Prescriptions: Cephalexin [Keflex] 500 mg PO Q8HR 3 Days #9 cap Is patient prescribed a controlled substance at d/c from ED?: No Referrals: None,Stated [Primary Care Provider] - 1-2 days
== END 2020-05-08 00:41 | disposition home or self-care (01) ==
LOC: EC 23:29
DX: Z48.01 Encounter for change or removal of surgical wound dressing (principal); F17.200 Nicotine dependence, unspecified, uncomplicated
CPT/HCPCS: 99283

== ENCOUNTER → 2020-07-11 | Outpatient (CLI) | payer BC, OTHER ==
[2020-07-11 14:34] LABS: HCT 46.3 % (34.0-46.0); HGB 15.3 gm/dL (11.4-16.0); MCH 31.8 pg (25.0-35.0); MCV 96.4 fL (80.0-100.0); Mean Platelet Volume 7.1; Platelet Count 370 k/uL (150-450); RBC 4.81 m/uL (3.80-5.40); RDW 13.9 % (11.5-15.5); WBC 10.7 k/uL (3.8-10.6)
[2020-07-11 14:49] LABS: Potassium 4.8 mmol/L (3.5-5.1)
== END | disposition home or self-care (01) ==
LOC: LABPAT 12:12
PROVIDERS: ATTEND Surgery
DX: Z01.818 Encounter for other preprocedural examination (principal); K57.32 Diverticulitis of large intestine without perforation or abscess without bleeding
CPT/HCPCS: 36415; 80051; 85027

== ENCOUNTER 2020-07-20 08:18 | Day surgery (SDC) | payer BC, OTHER ==
[2020-07-18 13:04] VITALS: BMI 40.2
[~2020-07-20 08:18] MED LIST changes: -ACETAMINOPHEN TAB 500 MG TAB PO ONE; -DEXAMETHASONE SOD PHOSPHATE 10 MG/ML 1 ML VIAL IV ONE; -HEPARIN SODIUM,PORCINE 5,000 UNIT/ML 1 ML VIAL SQ ONE; -HYDROmorphone 0.5 MG/0.5 ML SYRINGE IVP PRN; +LACTATED RINGERS 1,000 ML IV SCH; -ONDANSETRON 4 MG/2 ML VIAL IVP ONE; -SCOPOLAMINE 1.5MG/72HR PATCH TRANSDERM ONE; -metroNIDAZOLE-NS PMX 500 MG in SALINE 1 100ML.BAG IVPB ONE
[2020-07-20] MEDS ORDERED: LACTATED RINGERS 1,000 ML IV ONE (08:54)
[2020-07-20] MEDS ORDERED: PROPOFOL 10 MG/ML 20 ML VIAL IV ONE (09:15)
--- NOTE | 2020-07-20 09:19 | P.GSHP ---
History of Present Illness H&P Date: 07/20/20 Chief Complaint: History of perforated diverticulitis This a 35-year-old female who presents today for colonoscopy. Patient appears history of perforated diverticulitis. She'll be undergoing reversal colostomy. Past Medical History Past Medical History: No Reported History Additional Past Medical History / Comment(s): diverticulitis History of Any Multi-Drug Resistant Organisms: None Reported Past Surgical History: Bowel Resection, Section, Cholecystectomy, Tubal Ligation Additional Past Surgical History / Comment(s): 3 Sections,colostomy Past Anesthesia/Blood Transfusion Reactions: Previous Problems w/ Anesthesia Additional Past Anesthesia/Blood Transfusion Reaction / Comment(s): Never had a blood transfusion. PATIENT STATES SHE FLAT LINED AFTER ALL 3 C- SECTIONS, NO PROBLEM WITH OTHER SURGERY. Smoking Status: Current every day smoker - Past Family History Mother History Unknown: Yes Family Medical History: Cancer, CVA/TIA Additional Family Medical History / Comment(s): Thyroid cancer, CVA. Father Family Medical History: Deep Vein Thrombosis (DVT) Additional Family Medical History / Comment(s): blood clot shoulder Medications and Allergies Home Medications Medication Instructions Recorded Confirmed Type No Known Home Medications 07/18/20 07/18/20 History Allergies Allergy/AdvReac Type Severity Reaction Status Date / Time No Known Allergies Allergy Verified 07/18/20 12:58 Surgical - Exam - General well developed, well nourished, no distress - Eyes PERRL - ENT normal pinna - Neck no masses - Respiratory normal expansion - Cardiovascular Rhythm: regular - Abdomen Abdomen: soft, non tender Assessment and Plan Assessment: History of perforated diverticulitis. We'll perform colonoscopy
[2020-07-20] MEDS ORDERED: LACTATED RINGERS 900 ML IV ONE (09:27)
--- NOTE | 2020-07-20 09:29 | P.OP ---
Date of Procedure: 07/20/20 Preoperative Diagnosis: Diverticulitis Postoperative Diagnosis: Diverticulosis Procedure(s) Performed: Colonoscopy Anesthesia: MAC Surgeon: Jez Harrington Pathology: none sent Condition: stable Disposition: PACU Description of Procedure: The patient's placed on the endoscopy table lateral position. She received IV sedation. Digital rectal exam was performed which revealed a few external hemorrhoids present. Scope was then placed patient anus and passed throughout the colon. The patient had a rectal stump measured approximately 25 cm in length. Scope was withdrawn. There is no obvious pathology of the rectal stump. Scope was withdrawn for patient. Next patient rotator back and the clot scope was entered through the colostomy. There were diverticular changes seen in the left colon. Scope was placed on the wooden cecum. The cecum, ascending and transverse colon appeared normal. Scope was withdrawn and there was decent in the descending colon there were diverticular seen. Scope withdrawn for patient.
[2020-07-20 09:56] VITALS: BP 120/78; PULSE 68; RESP 18
== END 2020-07-20 10:10 | disposition home or self-care (01) ==
LOC: ORWHC2ENDO 08:18
PROVIDERS: ATTEND Surgery
DX: K57.30 Diverticulosis of large intestine without perforation or abscess without bleeding (principal); K64.4 Residual hemorrhoidal skin tags; Z90.49 Acquired absence of other specified parts of digestive tract; Z98.51 Tubal ligation status; Z98.890 Other specified postprocedural states; Z98.891 History of uterine scar from previous surgery; F17.200 Nicotine dependence, unspecified, uncomplicated; Z82.49 Family history of ischemic heart disease and other diseases of the circulatory system; Z82.3 Family history of stroke; Z80.8 Family history of malignant neoplasm of other organs or systems; F41.9 Anxiety disorder, unspecified; F32.9 Major depressive disorder, single episode, unspecified; F43.10 Post-traumatic stress disorder, unspecified
CPT/HCPCS: 81025; 44388; J2704

== ENCOUNTER 2020-07-21 07:40 | Inpatient (IN) | payer BC, OTHER ==
[2020-07-18 13:21] VITALS: BMI 40.2
[~2020-07-21 07:40] MED LIST changes: +ACETAMINOPHEN TAB 500 MG TAB PO ONE; +DEXAMETHASONE SOD PHOSPHATE 4 MG/ML 1 ML VIAL IV ONE; +HEPARIN SODIUM,PORCINE 5,000 UNIT/ML 1 ML VIAL SQ ONE; +HYDROmorphone 0.5 MG/0.5 ML SYRINGE IVP PRN; -LIDOCAINE 1% (10MG/ML) FOR IV START INTRADERMA PRN; +MIDAZOLAM 2 MG/2 ML VIAL IV PRN; +ONDANSETRON 4 MG/2 ML VIAL IVP ONE; +SCOPOLAMINE 1.5MG/72HR PATCH TRANSDERM ONE; +metroNIDAZOLE-NS PMX 500 MG in SALINE 1 100ML.BAG IVPB ONE
--- NOTE | 2020-07-21 10:11 | P.GSHP ---
History of Present Illness H&P Date: 07/21/20 Chief Complaint: History of perforated diverticulitis Is a 35-year-old female who presents today for reversal of colostomy. Patient appears history of perforated diverticulitis with abscess. Past Medical History Past Medical History: No Reported History Additional Past Medical History / Comment(s): diverticulitis History of Any Multi-Drug Resistant Organisms: None Reported Past Surgical History: Bowel Resection, Section, Cholecystectomy, Tubal Ligation Additional Past Surgical History / Comment(s): 3 Sections,colostomy Past Anesthesia/Blood Transfusion Reactions: Previous Problems w/ Anesthesia Additional Past Anesthesia/Blood Transfusion Reaction / Comment(s): Never had a blood transfusion. PATIENT STATES SHE FLAT LINED AFTER ALL 3 C- SECTIONS, NO PROBLEM WITH OTHER SURGERY. Smoking Status: Current every day smoker - Past Family History Mother History Unknown: Yes Family Medical History: Cancer, CVA/TIA Additional Family Medical History / Comment(s): Thyroid cancer, CVA. Father Family Medical History: Deep Vein Thrombosis (DVT) Additional Family Medical History / Comment(s): blood clot shoulder Medications and Allergies Home Medications Medication Instructions Recorded Confirmed Type No Known Home Medications 07/18/20 07/18/20 History Allergies Allergy/AdvReac Type Severity Reaction Status Date / Time No Known Allergies Allergy Verified 07/18/20 12:58 Surgical - Exam - General well developed, well nourished, no distress - Eyes PERRL - ENT normal pinna - Neck no masses - Respiratory normal expansion - Cardiovascular Rhythm: regular - Abdomen Ostomy left lower quadrant Abdomen: soft, non tender Assessment and Plan Assessment: History of perforated diverticulitis. We'll perform reversal of colostomy
[2020-07-21] MEDS ORDERED: LIDOCAINE 1% (10MG/ML) FOR IV START INTRADERMA ONE (10:30)
--- NOTE | 2020-07-21 11:16 | P.ANPRN ---
Procedure Note - Anesthesia - Nerve Block Performed Bilateral Erector Spinae Single Time Out Performed: Yes Date of Procedure: 07/21/20 Procedure Start Time: 10:49 Procedure Stop Time: 11:04 Location of Patient: PreOp Indication: Acute Post-Operative Pain, Requested by Surgeon Sedation Type: Sedate with meaningful contact maintained Preparation: Sterile Prep, Sterile Dressing Position: Sitting Catheter: None Needle Types: Pajunk Needle Gauge: 20 Ultrasound used to visualize needle placement: Yes Ultrasound used to observe medication spread: Yes Injectate: 0.5% Ropivacaine (see comment for volume) (15 ml per side + decadron 4 mg) Blood Aspirated: No Pain Paresthesia on Injection Noted: No Resistance on Injection: Normal Image Stored and Saved: Yes Events: Uneventful and Well Tolerated
[2020-07-21] MEDS ORDERED: fentaNYL (PF) 50 MCG/ML 2 ML AMP ONE ×2 (12:23→12:30)
[2020-07-21] MEDS ORDERED: LIDOCAINE 1% INJ 10MG/ML (20 ML MDV) ONE ×2 (12:23→12:30)
[2020-07-21] MEDS ORDERED: ePHEDrine SULFATE/0.9% NACL/PF 50 MG/5 ML SYRINGE IV ONE (12:23)
[2020-07-21] MEDS ORDERED: MIDAZOLAM 2 MG/2 ML VIAL ONE ×2 (12:23→12:30)
[2020-07-21] MEDS ORDERED: SUCCINYLCHOLINE CHLORIDE 100 MG/5 ML SYR IV ONE (12:23)
[2020-07-21] MEDS ORDERED: GLYCOPYRROLATE 0.2 MG/ML 2 ML VIAL ONE ×2 (12:23→12:30)
[2020-07-21] MEDS ORDERED: ROPIVACAINE 5 MG/ML 30 ML VIAL ONE ×2 (12:23→12:30)
[2020-07-21] MEDS ORDERED: DEXAMETHASONE SOD PHOSPHATE 4 MG/ML 1 ML VIAL ONE ×2 (12:23→12:30)
[2020-07-21] MEDS ORDERED: ROCURONIUM 10 MG/ML (10 ML VIAL) IV ONE (12:30)
[2020-07-21] MEDS ORDERED: NEOSTIGMINE 1 MG/ML 10 ML VIAL ONE (12:30)
[2020-07-21] MEDS ORDERED: HYDROmorphone (PF) 1 MG/ML ONE (12:30)
[2020-07-21] MEDS ORDERED: PROPOFOL 10 MG/ML 20 ML VIAL IV ONE (12:30)
[2020-07-21] MEDS ORDERED: LACTATED RINGERS 1,000 ML IV ONE (12:57)
[2020-07-21] MEDS ORDERED: ONDANSETRON 4 MG/2 ML VIAL IVP PRN (13:47)
--- NOTE | 2020-07-21 13:47 | P.OP ---
Date of Procedure: 07/21/20 Preoperative Diagnosis: History of perforated diverticulitis Postoperative Diagnosis: History of perforated diverticulitis Procedure(s) Performed: Repair of Incisional hernia Reversal colostomy Anesthesia: JUAN Surgeon: Jez Harrington Pathology: other (colon) Condition: stable Disposition: PACU Description of Procedure: The patient's placed on the operative table in supine position. She received general anesthesia. She was then placed in dorsal 5 position. Her abdomen was prepped and draped usual fashion. There was entered through a low midline incision. Patient had an incisional hernia. This was opened during the laparotomy. The Bookwalter with wound. The colostomy was then transected at the fascial edge using a RYAN stapler. The small bowel packed out of the pelvis. The uterus was retracted. The rectal stump Prolene was seen. This point the proximal colon was opened staple line and the anvil for the 25 mm EEA stapler was placed to the colon. Using a RYAN stapler the colon was transected and the antrum was brought out through the staple line. The cyst then placed the EEA stapler patient's anus and then the spike was driven through the anterior rectal wall. The stapler anvil was connected. The stapler then closed and fired. The stapler was withdrawn. 2 intact tissue rings were withdrawn. The bowel was then occluded with a hydro-rental sales agent. Using a rigid sigmoidoscope the colon was insufflated with air. And no extravasation of air was seen at the staple line. The abdomen was irrigated there is no bleeding seen. TRINY drains placed in the pelvis and brought through the right upper quadrant. The colostomy site fascia was closed with 0 Ethibond suture. The fascia then closed with looped #1 PDS suture. Skin was closed felipe. The colostomy then was excised with cautery. The skin was closed felipe. Patient top she will was sent to recovery room stable condition.
[2020-07-21] MEDS: KETOROLAC 15 MG/ML 1 ML VIAL IVP PRN (14:44)
[2020-07-21] MEDS: HYDROmorphone 1 MG/ML 1 ML SYRINGE IVP PRN ×2 (18:06→20:52)
[2020-07-21] MEDS: HEPARIN SODIUM,PORCINE 5,000 UNIT/ML 1 ML VIAL SQ SCH (18:07)
[2020-07-21 18:29] LABS: Basophils % (A) 0 %; Eosinophils # (A) 0.3 k/uL (0-0.7); Eosinophils % (A) 2 %; HCT 45.6 % (34.0-46.0); HGB 14.9 gm/dL (11.4-16.0); Lymphocytes # (A) 0.8 k/uL (1.0-4.8); Lymphocytes % (A) 4 %; MCH 31.4 pg (25.0-35.0); MCHC 32.7 g/dL (31.0-37.0); MCV 96.1 fL (80.0-100.0); Mean Platelet Volume 7.1; Monocytes # (A) 0.5 k/uL (0-1.0); Monocytes % (A) 2 %; Neutrophils # (A) 19.9 k/uL (1.3-7.7); Neutrophils % (A) 92 %; Platelet Count 361 k/uL (150-450); RBC 4.74 m/uL (3.80-5.40); RDW 13.9 % (11.5-15.5); WBC 21.6 k/uL (3.8-10.6)
[2020-07-21 19:02] LABS: African American GFR (CKD) >90 (>60 ml/min/1.73 sqM); Anion Gap 6 mmol/L; Blood Urea Nitrogen 10 mg/dL (7-17); Calcium 9.2 mg/dL (8.4-10.2); Carbon Dioxide 20 mmol/L (22-30); Chloride 108 mmol/L (98-107); Glucose 147 mg/dL (74-99); Non-African American GFR(CKD) >90 (>60 ml/min/1.73 sqM); Potassium 4.9 mmol/L (3.5-5.1); Sodium 134 mmol/L (137-145)
[2020-07-21] MEDS: D5-0.45% NACL WITH KCL 20MEQ/L 1,000 ML IV SCH (19:44)
--- NOTE | 2020-07-21 21:23 | P.CONS ---
History of Present Illness - Reason for Consult Consult date: 07/21/20 Medical management Requesting physician: Jez Harrington - Chief Complaint reversal of colostomy - History of Present Illness Patient is a 35-year-old female with a known history of diverticulitis and history of colostomy and bowel resection was admitted to the hospital for reversal of colostomy. Patient does have a history of perforated diverticulitis with abscess and underwent bowel resection and colostomy previously. Patient is currently status post surgery. Still feels very drowsy but alert and awake and oriented. Complains of pain at the surgical site which is controlled with medications.. Denied any chest pain or shortness breath. No nausea vomiting or abdominal pain or diarrhea. No fever no chills. Vitals blood pressure is 119/84, pulse is 77, respiration 20 and pulse ox 94% 3 L oxygen Laboratory data showed WBC 21.6, hemoglobin 14.9 and platelets 361 and neutrophils 19.9 Sodium 134, potassium 4.9, chloride 108 and bicarb is 20, BUN 10 and creatinine 0.79 and blood sugar is 147 Review of Systems Constitutional: Patient denies any fever or chills . No generalized weakness or weight loss. Abdomen: Patient denied nausea vomiting and diarrhea. Abdominal pain at the surgical site.. Cardiovascular: Patient denies any chest pain or short of breath no palpitations. Respiratory: patient denied any cough or sputum production. No shortness of breath Neurologic: Patient denied any numbness or tingling headache. Musculoskeletal: Patient denies any complaints of joint swelling or deformity. Skin: Negative Psychiatric: Negative Endocrine: No heat or cold intolerance. No recent weight gain. Genitourinary: No dysuria or hematuria. All other 14 point ROS negative except the above Past Medical History Past Medical History: No Reported History Additional Past Medical History / Comment(s): diverticulitis History of Any Multi-Drug Resistant Organisms: None Reported Past Surgical History: Bowel Resection, Section, Cholecystectomy, Tubal Ligation Additional Past Surgical History / Comment(s): 3 Sections,colostomy Past Anesthesia/Blood Transfusion Reactions: Previous Problems w/ Anesthesia Additional Past Anesthesia/Blood Transfusion Reaction / Comm: Never had a blood transfusion. PATIENT STATES SHE FLAT LINED AFTER ALL 3 C- SECTIONS, NO PROBLEM WITH OTHER SURGERY. Smoking Status: Current every day smoker - Past Family History Mother History Unknown: Yes Family Medical History: Cancer, CVA/TIA Additional Family Medical History / Comment(s): Thyroid cancer, CVA. Father Family Medical History: Deep Vein Thrombosis (DVT) Additional Family Medical History / Comment(s): blood clot shoulder Medications and Allergies Home Medications Medication Instructions Recorded Confirmed Type No Known Home Medications 07/18/20 07/21/20 History Allergies Allergy/AdvReac Type Severity Reaction Status Date / Time No Known Allergies Allergy Verified 07/21/20 15:50 Physical Exam Vitals: Vital Signs Temp Pulse Pulse Resp BP BP Pulse Ox 07/21/20 14:54 74 16 159/88 94 L 07/21/20 14:39 77 16 154/77 95 07/21/20 14:24 79 16 156/88 94 L 07/21/20 14:08 78 16 163/94 97 07/21/20 13:53 99.1 F 83 16 159/84 96 07/21/20 11:00 78 16 122/66 97 07/21/20 10:49 78 16 133/70 97 07/21/20 10:08 98.5 F 84 16 127/69 94 L Intake and Output 07/21/20 07/21/20 07/21/20 06:59 14:59 22:59 Intake Total 1550 100 Output Total 300 Balance 1250 100 Intake: IV 1550 100 Output: Urine 200 Estimated Blood Loss 100 Other: Weight 104.8 kg PHYSICAL EXAMINATION: Patient is lying in the bed comfortably, no acute distress, awake alert and oriented. drowsy HEENT: Normocephalic. Neck is supple. Pupils reactive. Nostrils clear. Oral cavity is moist. Ears reveal no drainage. Neck reveals no JVD, carotid bruits, or thyromegaly. CHEST EXAMINATION: Trachea is central. Symmetrical expansion.Bibasilar diminished air entry Lung fontenot clear to auscultation and percussion. CARDIAC: Normal S1, S2 with no gallops. No murmurs ABDOMEN: Soft. Bowel sounds sluggish,Surgical site bandaged. . No organomegaly. No abdominal bruits. Extremities: reveal no edema. No clubbing or cyanosis Neurologically awake, alert, oriented x3 with well-coordinated movements. No focal deficits noted Skin: No rash or skin lesions. Psychiatric: Coperative. Nonsuicidal Musculoskeletal: No joint swelling or deformity. Normal range of motion. Results CBC & Chem 7: 07/21/20 18:12 07/21/20 18:12 Assessment and Plan Assessment: Status post reversal of colostomy postoperative day 0 Leukocytosis with WBC count 21.6 likely postsurgical inflammatory reaction. Rule out infection. Hypovolemic hyponatremia History of diverticulitis with abscess status post bowel resection and colostomy placement. History of Currently everyday smoker DVT prophylaxis with heparin subcu Plan: Patient will be continued on IV hydration and pain management, bowel regimen and incentive spirometry. Repeat CBC and BMP tomorrow and follow-up WBC count closely. Monitor for any source of infection. We will continue to follow with you and further recommendations based on the clinical course. Thank you for the consult. Time with Patient: Greater than 30
[2020-07-21] MEDS: ALVIMOPAN 12 MG CAPSULE PO SCH (22:24)
[2020-07-22] MEDS: D5-0.45% NACL WITH KCL 20MEQ/L 1,000 ML IV SCH ×4 (00:24→23:51)
[2020-07-22] MEDS: HEPARIN SODIUM,PORCINE 5,000 UNIT/ML 1 ML VIAL SQ SCH ×3 (00:24→17:08)
[2020-07-22] MEDS: HYDROmorphone 1 MG/ML 1 ML SYRINGE IVP PRN ×6 (02:05→22:02)
[2020-07-22 08:14] LABS: Basophils % (A) 0 %; Eosinophils # (A) 0.1 k/uL (0-0.7); Eosinophils % (A) 0 %; HCT 42.1 % (34.0-46.0); HGB 13.3 gm/dL (11.4-16.0); Lymphocytes % (A) 11 %; MCH 31.1 pg (25.0-35.0); MCHC 31.6 g/dL (31.0-37.0); MCV 98.2 fL (80.0-100.0); Mean Platelet Volume 7.4; Monocytes # (A) 1.1 k/uL (0-1.0); Monocytes % (A) 6 %; Neutrophils # (A) 15.7 k/uL (1.3-7.7); Neutrophils % (A) 83 %; Platelet Count 352 k/uL (150-450); RBC 4.29 m/uL (3.80-5.40); RDW 13.9 % (11.5-15.5)
[2020-07-22 08:23] LABS: African American GFR (CKD) >90 (>60 ml/min/1.73 sqM); Anion Gap 7 mmol/L; Blood Urea Nitrogen 8 mg/dL (7-17); Calcium 8.6 mg/dL (8.4-10.2); Carbon Dioxide 18 mmol/L (22-30); Chloride 108 mmol/L (98-107); Glucose 104 mg/dL (74-99); Non-African American GFR(CKD) >90 (>60 ml/min/1.73 sqM); Sodium 133 mmol/L (137-145)
[2020-07-22] MEDS: ALVIMOPAN 12 MG CAPSULE PO SCH ×2 (10:37→21:55)
[2020-07-22] MEDS: KETOROLAC 15 MG/ML 1 ML VIAL IVP PRN (11:22)
[2020-07-22] MEDS ORDERED: BENZOCAINE/MENTHOL LOZENG 1 EACH LOZENGE MUCOUS MEM PRN (16:09)
[2020-07-22] MEDS ORDERED: METOCLOPRAMIDE 5 MG/ML 2 ML VIAL IVP PRN (16:09)
--- NOTE | 2020-07-22 16:09 | P.PN ---
Subjective Progress Note Date: 07/22/20 CHIEF COMPLAINT: Diverticulitis HISTORY OF PRESENT ILLNESS: The patient is a 35-year-old male status post low anterior resection for diverticulitis. She has tried ambulating with difficulty due to pain. No nausea or vomiting. No flatus. ROS: No reports of nausea and vomiting. No fevers or chills. No new chest pain. PHYSICAL EXAM: VITAL SIGNS: Reviewed CONSTITUTIONAL: Well developed and in no acute distress. EYES: Conjuctivae without sclera icterus. Extraocular movements grossly intact. HEAD, EARS, NOSE, THROAT: Moist buccal mucosa. Head is atraumatic, normocephalic. Hears conversational speech. No nasal drainage. RESPIRATORY: Non-labored respirations and equal bilateral excursions. CARDIOVASCULAR: Palpable 2+ radial pulses. ABDOMEN: Dressing intact with serosanguinous TRINY. Protuberant. Midline dressing soaked. MUSCULOSKELETAL: No gross deformity of the lower extremities noted. No clubbing. No cyanosis. SKIN: Good skin turgor. Well perfused. NEUROLOGIC: Cranial nerves II through XII grossly intact. No focal or lateralizing signs. PSYCH: Appropriate affect. Alert and oriented to person, place and time. CLINICAL LABS: WBC 19,000 and elevated. ASSESSMENT: 1. Perforated sigmoid diverticulitis 2. Status post colostomy reversal PLAN: 1. Change midline dressing 2. Abdominal binder for comfort 3. Start clear liquid diet 4. Antibiotic management for history of perforated diverticulitis Objective - Vital Signs Vital signs: Vital Signs Temp 98.2 F 07/22/20 12:12 Pulse 75 07/22/20 12:12 Resp 16 07/22/20 12:12 BP 108/73 07/22/20 12:12 Pulse Ox 94 L 07/22/20 12:12 Intake & Output 07/21/20 07/22/20 07/22/20 18:59 06:59 18:59 Intake Total 1650 2000 40 Output Total 510 620 690 Balance 1140 1380 -650 Weight 104.8 kg Intake: IV 1650 Intake, IV Titration 2000 Amount D5-0.45% NaCl with KCl 2000 20Meq/l 1,000 ml @ 125 mls/hr IV .Q8H ALAYNA Rx#: [id number] Oral 40 Output: Drainage 110 45 40 Right Lower Abdomen 110 45 40 Urine 300 575 650 Estimated Blood Loss 100 Other: Voiding Method Indwelling Catheter Indwelling Catheter Indwelling Catheter - Labs CBC & Chem 7: 07/22/20 06:13 07/22/20 06:13 Labs: Abnormal Lab Results - Last 24 Hours (Table) 07/21/20 07/21/20 07/22/20 Range/Units 18:12 18:12 06:13 WBC 21.6 H 19.0 H (3.8-10.6) k/uL Neutrophils # 19.9 H 15.7 H (1.3-7.7) k/uL Lymphocytes # 0.8 L (1.0-4.8) k/uL Monocytes # 1.1 H (0-1.0) k/uL Sodium 134 L (137-145) mmol/L Chloride 108 H (98-107) mmol/L Carbon Dioxide 20 L (22-30) mmol/L Glucose 147 H (74-99) mg/dL 07/22/20 Range/Units 06:13 WBC (3.8-10.6) k/uL Neutrophils # (1.3-7.7) k/uL Lymphocytes # (1.0-4.8) k/uL Monocytes # (0-1.0) k/uL Sodium 133 L (137-145) mmol/L Chloride 108 H (98-107) mmol/L Carbon Dioxide 18 L (22-30) mmol/L Glucose 104 H (74-99) mg/dL Assessment and Plan (1) Perforation of sigmoid colon due to diverticulitis Current Visit: Yes Status: Acute Code(s): K57.20 - DVTRCLI OF LG INT W PERFORATION AND ABSCESS W/O BLEEDING SNOMED Code(s): 0823238093347766 (2) Morbid obesity due to excess calories Current Visit: Yes Status: Acute Code(s): E66.01 - MORBID (SEVERE) OBESITY DUE TO EXCESS CALORIES SNOMED Code(s): 628292088 (3) BMI greater than 40 Current Visit: Yes Status: Acute Code(s): UAW5325 - SNOMED Code(s): 195814414 (4) BMI 40.0-44.9, adult Current Visit: Yes Status: Acute Code(s): Z68.41 - BODY MASS INDEX [BMI]40.0-44.9, ADULT SNOMED Code(s): 233822448
[2020-07-22] MEDS ORDERED: SODIUM CHLORIDE 0.9% 2,000 ML IV ONE (16:11)
[2020-07-22] MEDS: ACETAMINOPHEN TAB 500 MG TAB PO SCH (16:53)
[2020-07-22 16:58] LABS: Basophils % (A) 0 %; Eosinophils # (A) 0.4 k/uL (0-0.7); Eosinophils % (A) 3 %; HCT 39.3 % (34.0-46.0); HGB 12.6 gm/dL (11.4-16.0); Lymphocytes # (A) 2.8 k/uL (1.0-4.8); Lymphocytes % (A) 20 %; MCH 31.4 pg (25.0-35.0); MCV 98.1 fL (80.0-100.0); Mean Platelet Volume 7.1; Monocytes # (A) 0.7 k/uL (0-1.0); Monocytes % (A) 5 %; Neutrophils # (A) 10.1 k/uL (1.3-7.7); Neutrophils % (A) 72 %; Platelet Count 321 k/uL (150-450); RBC 4.01 m/uL (3.80-5.40); RDW 13.9 % (11.5-15.5); WBC 14.2 k/uL (3.8-10.6)
[2020-07-22 17:13] LABS: Potassium 4.5 mmol/L (3.5-5.1)
[2020-07-22 17:14] LABS: African American GFR (CKD) >90 (>60 ml/min/1.73 sqM); Anion Gap 4 mmol/L; Blood Urea Nitrogen 9 mg/dL (7-17); Calcium 8.5 mg/dL (8.4-10.2); Carbon Dioxide 22 mmol/L (22-30); Chloride 107 mmol/L (98-107); Glucose 103 mg/dL (74-99); Non-African American GFR(CKD) >90 (>60 ml/min/1.73 sqM); Sodium 133 mmol/L (137-145)
[2020-07-22] MEDS: KETOROLAC 15 MG/ML 1 ML VIAL IVP SCH ×2 (17:45→23:50)
[2020-07-22] MEDS: metroNIDAZOLE-NS PMX 500 MG in SALINE 1 100ML.BAG IVPB SCH (17:47)
[2020-07-22] MEDS: FAMOTIDINE 20 MG/2 ML VIAL IV SCH (21:53)
[2020-07-23] MEDS: ACETAMINOPHEN TAB 500 MG TAB PO SCH ×5 (00:42→23:45)
[2020-07-23] MEDS: metroNIDAZOLE-NS PMX 500 MG in SALINE 1 100ML.BAG IVPB SCH ×3 (00:42→11:39)
[2020-07-23] MEDS: HEPARIN SODIUM,PORCINE 5,000 UNIT/ML 1 ML VIAL SQ SCH ×4 (00:42→23:50)
[2020-07-23] MEDS: KETOROLAC 15 MG/ML 1 ML VIAL IVP SCH ×4 (06:10→23:45)
[2020-07-23] MEDS: ALVIMOPAN 12 MG CAPSULE PO SCH ×2 (08:11→21:11)
[2020-07-23] MEDS: FAMOTIDINE 20 MG/2 ML VIAL IV SCH ×2 (08:12→21:11)
[2020-07-23] MEDS: HYDROmorphone 1 MG/ML 1 ML SYRINGE IVP PRN ×2 (08:53→14:22)
[2020-07-23] MEDS: D5-0.45% NACL WITH KCL 20MEQ/L 1,000 ML IV SCH (08:55)
[2020-07-23 10:29] LABS: African American GFR (CKD) >90 (>60 ml/min/1.73 sqM); Anion Gap 2 mmol/L; Blood Urea Nitrogen 7 mg/dL (7-17); Calcium 7.9 mg/dL (8.4-10.2); Carbon Dioxide 18 mmol/L (22-30); Chloride 115 mmol/L (98-107); Glucose 92 mg/dL (74-99); Non-African American GFR(CKD) >90 (>60 ml/min/1.73 sqM); Sodium 135 mmol/L (137-145)
[2020-07-23 10:33] LABS: Basophils # (A) 0.1 k/uL (0-0.2); Basophils % (A) 1 %; Eosinophils # (A) 0.5 k/uL (0-0.7); Eosinophils % (A) 4 %; HCT 36.1 % (34.0-46.0); HGB 12.1 gm/dL (11.4-16.0); Lymphocytes # (A) 2.3 k/uL (1.0-4.8); Lymphocytes % (A) 20 %; MCH 32.1 pg (25.0-35.0); MCHC 33.6 g/dL (31.0-37.0); MCV 95.5 fL (80.0-100.0); Mean Platelet Volume 7.9; Monocytes # (A) 0.6 k/uL (0-1.0); Monocytes % (A) 5 %; Neutrophils # (A) 8.1 k/uL (1.3-7.7); Neutrophils % (A) 69 %; Platelet Count 232 k/uL (150-450); RBC 3.78 m/uL (3.80-5.40); RDW 13.6 % (11.5-15.5); WBC 11.7 k/uL (3.8-10.6)
--- NOTE | 2020-07-23 11:37 | P.PN ---
Subjective Progress Note Date: 07/22/20 Principal diagnosis: Status post reversal of colostomy Patient is a 35-year-old female with a known history of diverticulitis and history of colostomy and bowel resection was admitted to the hospital for reversal of colostomy. Patient does have a history of perforated diverticulitis with abscess and underwent bowel resection and colostomy previously. Patient is currently status post surgery. Still feels very drowsy but alert and awake and oriented. Complains of pain at the surgical site which is controlled with medications.. Denied any chest pain or shortness breath. No nausea vomiting or abdominal pain or diarrhea. No fever no chills. Vitals blood pressure is 119/84, pulse is 77, respiration 20 and pulse ox 94% 3 L oxygen Laboratory data showed WBC 21.6, hemoglobin 14.9 and platelets 361 and neutrophils 19.9 Sodium 134, potassium 4.9, chloride 108 and bicarb is 20, BUN 10 and creatinine 0.79 and blood sugar is 147 07/22/2020 Patient is currently lying in the bed comfortably. Awake and more oriented today. No complaints of chest pain or shortness of breath. No cough or sputum production. Patient is being treated on incentive spirometry. No recent count improved to 19.0 today. Sodium 133 potassium 5.0 and chloride 108 and bicarb 18 BUN 8 and creatinine 0.62. No nausea or vomiting. Patient is not passing factors are no bowel movement yet. Continued on IV hydration and nothing by mouth. current medications reviewed. Objective - Vital Signs Vital signs: Vital Signs Temp 98.2 F 07/22/20 12:12 Pulse 75 07/22/20 12:12 Resp 16 07/22/20 12:12 BP 108/73 07/22/20 12:12 Pulse Ox 94 L 07/22/20 12:12 Intake & Output 07/21/20 07/22/20 07/22/20 18:59 06:59 18:59 Intake Total 1650 2000 Output Total 510 620 690 Balance 1140 1380 -690 Weight 104.8 kg Intake: IV 1650 Intake, IV Titration 2000 Amount D5-0.45% NaCl with KCl 2000 20Meq/l 1,000 ml @ 125 mls/hr IV .Q8H [facility] Rx#: [id number] Output: Drainage 110 45 40 Right Lower Abdomen 110 45 40 Urine 300 575 650 Estimated Blood Loss 100 Other: Voiding Method Indwelling Catheter Indwelling Catheter Indwelling Catheter - Exam PHYSICAL EXAMINATION: Patient is lying in the bed comfortably, no acute distress, awake alert and oriented. drowsy HEENT: Normocephalic. Neck is supple. Pupils reactive. Nostrils clear. Oral cavity is moist. Ears reveal no drainage. Neck reveals no JVD, carotid bruits, or thyromegaly. CHEST EXAMINATION: Trachea is central. Symmetrical expansion.Bibasilar diminished air entry Lung fontenot clear to auscultation and percussion. CARDIAC: Normal S1, S2 with no gallops. No murmurs ABDOMEN: Soft. Bowel sounds sluggish,Surgical site bandaged. . No organomegaly. No abdominal bruits. Extremities: reveal no edema. No clubbing or cyanosis Neurologically awake, alert, oriented x3 with well-coordinated movements. No focal deficits noted Skin: No rash or skin lesions. Psychiatric: Coperative. Nonsuicidal Musculoskeletal: No joint swelling or deformity. Normal range of motion. - Labs CBC & Chem 7: 07/23/20 09:54 07/23/20 09:54 Labs: Abnormal Lab Results - Last 24 Hours (Table) 07/21/20 07/21/20 07/22/20 Range/Units 18:12 18:12 06:13 WBC 21.6 H 19.0 H (3.8-10.6) k/uL Neutrophils # 19.9 H 15.7 H (1.3-7.7) k/uL Lymphocytes # 0.8 L (1.0-4.8) k/uL Monocytes # 1.1 H (0-1.0) k/uL Sodium 134 L (137-145) mmol/L Chloride 108 H (98-107) mmol/L Carbon Dioxide 20 L (22-30) mmol/L Glucose 147 H (74-99) mg/dL 07/22/20 Range/Units 06:13 WBC (3.8-10.6) k/uL Neutrophils # (1.3-7.7) k/uL Lymphocytes # (1.0-4.8) k/uL Monocytes # (0-1.0) k/uL Sodium 133 L (137-145) mmol/L Chloride 108 H (98-107) mmol/L Carbon Dioxide 18 L (22-30) mmol/L Glucose 104 H (74-99) mg/dL Assessment and Plan Assessment: Status post reversal of colostomy postoperative day 1 Leukocytosis with WBC count 21.6 likely postsurgical inflammatory reaction. Rule out infection. Hypovolemic hyponatremia History of diverticulitis with abscess status post bowel resection and colostomy placement. History of Currently everyday smoker DVT prophylaxis with heparin subcu Plan: Patient will be continued on IV hydration and pain management, bowel regimen and incentive spirometry. Repeat CBC and BMP tomorrow and follow-up WBC count closely. Monitor for any source of infection. We will continue to follow with you and further recommen dations based on the clinical course.
--- NOTE | 2020-07-23 15:28 | P.PN ---
Subjective Progress Note Date: 07/23/20 CHIEF COMPLAINT: Diverticulitis HISTORY OF PRESENT ILLNESS: The patient is a 35-year-old male status post low anterior resection for diverticulitis. She is ambulating more after adjustment of her pain medications. She is passing moderate flatus. Midline dressing was changed. ROS: No reports of nausea and vomiting. No fevers or chills. No new chest pain. PHYSICAL EXAM: VITAL SIGNS: Reviewed CONSTITUTIONAL: Well developed and in no acute distress. EYES: Conjuctivae without sclera icterus. Extraocular movements grossly intact. HEAD, EARS, NOSE, THROAT: Moist buccal mucosa. Head is atraumatic, normocephalic. Hears conversational speech. No nasal drainage. RESPIRATORY: Non-labored respirations and equal bilateral excursions. CARDIOVASCULAR: Palpable 2+ radial pulses. ABDOMEN: New dressing with Optifoam borderless present. TRINY serosanguinous. MUSCULOSKELETAL: No gross deformity of the lower extremities noted. No clubbing. No cyanosis. SKIN: Good skin turgor. Well perfused. NEUROLOGIC: Cranial nerves II through XII grossly intact. No focal or lateralizing signs. PSYCH: Appropriate affect. Alert and oriented to person, place and time. CLINICAL LABS: WBC 19,000 down to 11.7 ASSESSMENT: 1. Perforated sigmoid diverticulitis 2. Status post colostomy reversal PLAN: 1. Adjust pain medication to include neurontin 300 mg tid 2. Advance diet to full liquid, low fiber for breakfast. 3. Disposition 24 to 48 hours. Objective - Vital Signs Vital signs: Vital Signs Temp 98.4 F 07/23/20 11:43 Pulse 70 07/23/20 11:43 Resp 16 07/23/20 11:43 BP 123/78 07/23/20 11:43 Pulse Ox 97 07/23/20 11:43 Intake & Output 07/22/20 07/23/20 07/23/20 18:59 06:59 18:59 Intake Total 280 540 Output Total 730 830 670 Balance -450 -830 -130 Intake: Oral 280 540 Output: Drainage 80 130 70 Right Lower Abdomen 80 130 70 Urine 650 700 600 Uretheral (Zapata) 600 Other: Voiding Method Indwelling Catheter Indwelling Catheter Indwelling Catheter - Labs CBC & Chem 7: 07/23/20 09:54 07/23/20 09:54 Labs: Abnormal Lab Results - Last 24 Hours (Table) 07/22/20 07/22/20 07/23/20 Range/Units 16:16 16:16 09:54 WBC 14.2 H 11.7 H (3.8-10.6) k/uL RBC 3.78 L (3.80-5.40) m/uL Neutrophils # 10.1 H 8.1 H (1.3-7.7) k/uL Sodium 133 L (137-145) mmol/L Potassium (3.5-5.1) mmol/L Chloride (98-107) mmol/L Carbon Dioxide (22-30) mmol/L Glucose 103 H (74-99) mg/dL Calcium (8.4-10.2) mg/dL 07/23/20 Range/Units 09:54 WBC (3.8-10.6) k/uL RBC (3.80-5.40) m/uL Neutrophils # (1.3-7.7) k/uL Sodium 135 L (137-145) mmol/L Potassium 6.0 H (3.5-5.1) mmol/L Chloride 115 H (98-107) mmol/L Carbon Dioxide 18 L (22-30) mmol/L Glucose (74-99) mg/dL Calcium 7.9 L (8.4-10.2) mg/dL Assessment and Plan (1) Perforation of sigmoid colon due to diverticulitis Current Visit: Yes Status: Acute Code(s): K57.20 - DVTRCLI OF LG INT W PERFORATION AND ABSCESS W/O BLEEDING SNOMED Code(s): 0985916368965427 (2) Morbid obesity due to excess calories Current Visit: Yes Status: Acute Code(s): E66.01 - MORBID (SEVERE) OBESITY DUE TO EXCESS CALORIES SNOMED Code(s): 101435425 (3) BMI greater than 40 Current Visit: Yes Status: Acute Code(s): NRT0217 - SNOMED Code(s): 504580975 (4) BMI 40.0-44.9, adult Current Visit: Yes Status: Acute Code(s): Z68.41 - BODY MASS INDEX [BMI]40.0-44.9, ADULT SNOMED Code(s): 344531425
[2020-07-23] MEDS: SODIUM CHLORIDE 0.9% 1,000 ML IV SCH (15:40)
[2020-07-23] MEDS: GABAPENTIN 300 MG CAP PO SCH ×2 (15:42→21:11)
[2020-07-23 23:52] VITALS: RESP 18
--- NOTE | 2020-07-24 01:07 | P.PN ---
Subjective Progress Note Date: 07/23/20 Principal diagnosis: Status post reversal of colostomy Patient is a 35-year-old female with a known history of diverticulitis and history of colostomy and bowel resection was admitted to the hospital for reversal of colostomy. Patient does have a history of perforated diverticulitis with abscess and underwent bowel resection and colostomy previously. Patient is currently status post surgery. Still feels very drowsy but alert and awake and oriented. Complains of pain at the surgical site which is controlled with medications.. Denied any chest pain or shortness breath. No nausea vomiting or abdominal pain or diarrhea. No fever no chills. Vitals blood pressure is 119/84, pulse is 77, respiration 20 and pulse ox 94% 3 L oxygen Laboratory data showed WBC 21.6, hemoglobin 14.9 and platelets 361 and neutrophils 19.9 Sodium 134, potassium 4.9, chloride 108 and bicarb is 20, BUN 10 and creatinine 0.79 and blood sugar is 147 07/22/2020 Patient is currently lying in the bed comfortably. Awake and more oriented today. No complaints of chest pain or shortness of breath. No cough or sputum production. Patient is being treated on incentive spirometry. No recent count improved to 19.0 today. Sodium 133 potassium 5.0 and chloride 108 and bicarb 18 BUN 8 and creatinine 0.62. No nausea or vomiting. Patient is not passing factors are no bowel movement yet. Continued on IV hydration and nothing by mouth. 07/23/2020 Patient is currently sitting on the side of the bed. No complaints of chest pain or shortness of breath. Abdominal pain is improving. Patient has been afebrile. Leukocytosis is improving as well. Patient is being continued on incentive spirometry. Antibiotics were added as per general surgery. Laboratory data showed sodium 135, potassium 6.0 and chloride 105 and bicarb is 18 Potassium supplementation the IV fluids have been discontinued and patient is being continued on normal saline currently. Follow-up CBC and BMP tomorrow. current medications reviewed. Objective - Vital Signs Vital signs: Vital Signs Temp 98.8 F 07/23/20 08:23 Pulse 74 07/23/20 08:23 Resp 16 07/23/20 08:23 BP 133/83 07/23/20 08:23 Pulse Ox 96 07/23/20 08:23 Intake & Output 07/22/20 07/23/20 07/23/20 18:59 06:59 18:59 Intake Total 280 Output Total 730 830 Balance -450 -830 Intake: Oral 280 Output: Drainage 80 130 Right Lower Abdomen 80 130 Urine 650 700 Other: Voiding Method Indwelling Catheter Indwelling Catheter Indwelling Catheter - Exam PHYSICAL EXAMINATION: Patient is lying in the bed comfortably, no acute distress, awake alert and oriented. drowsy HEENT: Normocephalic. Neck is supple. Pupils reactive. Nostrils clear. Oral cavity is moist. Ears reveal no drainage. Neck reveals no JVD, carotid bruits, or thyromegaly. CHEST EXAMINATION: Trachea is central. Symmetrical expansion.Bibasilar diminished air entry Lung fontenot clear to auscultation and percussion. CARDIAC: Normal S1, S2 with no gallops. No murmurs ABDOMEN: Soft. Bowel sounds sluggish,Surgical site bandaged. . No organomegaly. No abdominal bruits. Extremities: reveal no edema. No clubbing or cyanosis Neurologically awake, alert, oriented x3 with well-coordinated movements. No focal deficits noted Skin: No rash or skin lesions. Psychiatric: Coperative. Nonsuicidal Musculoskeletal: No joint swelling or deformity. Normal range of motion. - Labs CBC & Chem 7: 07/23/20 09:54 07/23/20 09:54 Labs: Abnormal Lab Results - Last 24 Hours (Table) 07/22/20 07/22/20 07/23/20 Range/Units 16:16 16:16 09:54 WBC 14.2 H 11.7 H (3.8-10.6) k/uL RBC 3.78 L (3.80-5.40) m/uL Neutrophils # 10.1 H 8.1 H (1.3-7.7) k/uL Sodium 133 L (137-145) mmol/L Potassium (3.5-5.1) mmol/L Chloride (98-107) mmol/L Carbon Dioxide (22-30) mmol/L Glucose 103 H (74-99) mg/dL Calcium (8.4-10.2) mg/dL 07/23/20 Range/Units 09:54 WBC (3.8-10.6) k/uL RBC (3.80-5.40) m/uL Neutrophils # (1.3-7.7) k/uL Sodium 135 L (137-145) mmol/L Potassium 6.0 H (3.5-5.1) mmol/L Chloride 115 H (98-107) mmol/L Carbon Dioxide 18 L (22-30) mmol/L Glucose (74-99) mg/dL Calcium 7.9 L (8.4-10.2) mg/dL Assessment and Plan Assessment: Status post reversal of colostomy postoperative day 2 Leukocytosis with WBC count 21.6 likely postsurgical inflammatory reaction. Unlikely infection. Improved now.. Hypovolemic hyponatremia History of diverticulitis with abscess status post bowel resection and colostomy placement. History of Currently everyday smoker DVT prophylaxis with heparin subcu Plan: Patient will be continued on IV hydration and pain management, bowel regimen and incentive spirometry. Repeat CBC and BMP tomorrow and follow-up WBC count closely. Monitor for any source of infection. We will continue to follow with you and further recommendations based on the clinical course. Time with Patient: Greater than 30
[2020-07-24] MEDS: KETOROLAC 15 MG/ML 1 ML VIAL IVP SCH ×3 (05:46→19:23)
[2020-07-24] MEDS: ACETAMINOPHEN TAB 500 MG TAB PO SCH ×3 (05:46→19:21)
[2020-07-24] MEDS: SODIUM CHLORIDE 0.9% 1,000 ML IV SCH ×2 (05:47→14:44)
[2020-07-24 08:30] LABS: Basophils # (A) 0.1 k/uL (0-0.2); Basophils % (A) 0 %; Eosinophils # (A) 0.6 k/uL (0-0.7); Eosinophils % (A) 5 %; HCT 37.2 % (34.0-46.0); HGB 12.4 gm/dL (11.4-16.0); Lymphocytes # (A) 2.1 k/uL (1.0-4.8); Lymphocytes % (A) 19 %; MCH 32.2 pg (25.0-35.0); MCHC 33.4 g/dL (31.0-37.0); MCV 96.4 fL (80.0-100.0); Monocytes # (A) 0.2 k/uL (0-1.0); Monocytes % (A) 2 %; Neutrophils # (A) 8.4 k/uL (1.3-7.7); Neutrophils % (A) 73 %; Platelet Count 307 k/uL (150-450); RBC 3.85 m/uL (3.80-5.40); RDW 13.6 % (11.5-15.5); WBC 11.4 k/uL (3.8-10.6)
[2020-07-24 08:42] LABS: African American GFR (CKD) >90 (>60 ml/min/1.73 sqM); Anion Gap 5 mmol/L; Blood Urea Nitrogen 6 mg/dL (7-17); Calcium 8.6 mg/dL (8.4-10.2); Carbon Dioxide 21 mmol/L (22-30); Chloride 111 mmol/L (98-107); Glucose 122 mg/dL (74-99); Non-African American GFR(CKD) >90 (>60 ml/min/1.73 sqM); Potassium 4.1 mmol/L (3.5-5.1); Sodium 137 mmol/L (137-145)
[2020-07-24] MEDS: ALVIMOPAN 12 MG CAPSULE PO SCH ×2 (08:53→21:19)
[2020-07-24] MEDS: FAMOTIDINE 20 MG/2 ML VIAL IV SCH ×2 (08:53→21:21)
[2020-07-24] MEDS: GABAPENTIN 300 MG CAP PO SCH ×3 (08:53→21:20)
[2020-07-24] MEDS: HEPARIN SODIUM,PORCINE 5,000 UNIT/ML 1 ML VIAL SQ SCH ×2 (08:53→17:13)
--- NOTE | 2020-07-24 11:01 | P.PN ---
Subjective Progress Note Date: 07/24/20 CHIEF COMPLAINT: Diverticulitis HISTORY OF PRESENT ILLNESS: The patient is a 35-year-old female status post low anterior resection for diverticulitis. Patient reports her pain is controlled. She denies any nausea or vomiting. She is passing gas. She had about 70 output through her TRINY drain last night. She is afebrile. WBC 11.4 potassium 4.1 PHYSICAL EXAM: VITAL SIGNS: Reviewed. GENERAL: Well-developed in no acute distress. HEENT: No sclera icterus. Extraocular movements grossly intact. Moist buccal mucosa. Head is atraumatic, normocephalic. ABDOMEN: Soft. Nondistended. Dressing showing 2 areas of blood saturation. TRINY drain serosanguineous fluid NEUROLOGIC: Alert and oriented. Cranial nerves II through XII grossly intact. ASSESSMENT: 1. History of perforated diverticulitis status post lower anterior resection, colostomy reversal and repair of incisional hernia. Postop day #3 2. Hyperkalemia resolved PLAN: -Continue low fiber diet -Continue pain control -Encourage patient to ambulate -Encourage patient to use incentive spirometer -Possible discharge tomorrow -Continue GI and DVT prophylaxis Pepcid and subcu heparin Physician Deputy Head note has been reviewed by physician. Signing provider agrees with the documented findings, assessment, and plan of care. Objective - Vital Signs Vital signs: Vital Signs Temp 97.6 F 07/24/20 09:00 Pulse 79 07/24/20 09:00 Resp 18 07/24/20 09:00 BP 146/81 07/24/20 09:00 Pulse Ox 98 07/24/20 09:00 Intake & Output 07/23/20 07/24/20 07/24/20 18:59 06:59 18:59 Intake Total 780 120 Output Total 1385 600 860 Balance -605 600 740 Intake: Oral 780 120 Output: Drainage 110 100 60 Right Lower Abdomen 110 100 60 Urine 1275 500 800 Uretheral (Zapata) 925 Other: Voiding Method Indwelling Catheter Toilet Toilet - Labs CBC & Chem 7: 07/24/20 08:16 07/24/20 08:16 Labs: Abnormal Lab Results - Last 24 Hours (Table) 07/24/20 07/24/20 Range/Units 08:16 08:16 WBC 11.4 H (3.8-10.6) k/uL Neutrophils # 8.4 H (1.3-7.7) k/uL Chloride 111 H (98-107) mmol/L Carbon Dioxide 21 L (22-30) mmol/L BUN 6 L (7-17) mg/dL Glucose 122 H (74-99) mg/dL
--- NOTE | 2020-07-24 23:20 | P.PN ---
Subjective From records Patient is a 35-year-old female with a known history of diverticulitis and history of colostomy and bowel resection was admitted to the hospital for reversal of colostomy. Patient does have a history of perforated diverticulitis with abscess and underwent bowel resection and colostomy previously. Patient is currently status post surgery. Still feels very drowsy but alert and awake and oriented. Complains of pain at the surgical site which is controlled with medications.. Denied any chest pain or shortness breath. No nausea vomiting or abdominal pain or diarrhea. No fever no chills. Vitals blood pressure is 119/84, pulse is 77, respiration 20 and pulse ox 94% 3 L oxygen Laboratory data showed WBC 21.6, hemoglobin 14.9 and platelets 361 and neutrophils 19.9 Sodium 134, potassium 4.9, chloride 108 and bicarb is 20, BUN 10 and creatinine 0.79 and blood sugar is 147 07/22/2020 Patient is currently lying in the bed comfortably. Awake and more oriented today. No complaints of chest pain or shortness of breath. No cough or sputum production. Patient is being treated on incentive spirometry. No recent count improved to 19.0 today. Sodium 133 potassium 5.0 and chloride 108 and bicarb 18 BUN 8 and creatinine 0.62. No nausea or vomiting. Patient is not passing factors are no bowel movement yet. Continued on IV hydration and nothing by mouth. 07/23/2020 Patient is currently sitting on the side of the bed. No complaints of chest pain or shortness of breath. Abdominal pain is improving. Patient has been afebrile. Leukocytosis is improving as well. Patient is being continued on incentive spirometry. Antibiotics were added as per general surgery. Laboratory data showed sodium 135, potassium 6.0 and chloride 105 and bicarb is 18 Potassium supplementation the IV fluids have been discontinued and patient is being continued on normal saline currently. Follow-up CBC and BMP tomorrow. Subjective: This is first time I am taking care of the patient 07/24/2020 This is a pleasant 35% female with history of perforated diverticulitis status post anterior bowel resection admitted to the hospital for reversal of colostomy per surgery team. Today is postop day #3. Surgery team are following the patie nt closely and currently she is on liquid diet, she does not have bowel movement but she is passing gases. And her abdominal pain looks controlled as per patient WBC is a stable at 11.4. Sodium is normal today at 137, creatinine normal 0.7. Patient remains on normal saline at 75 mL/h Objective - Vital Signs Vital signs: Vital Signs Temp 97.6 F 07/24/20 09:00 Pulse 79 07/24/20 09:00 Resp 18 07/24/20 09:00 BP 146/81 07/24/20 09:00 Pulse Ox 98 07/24/20 09:00 Intake & Output 07/23/20 07/24/20 07/24/20 18:59 06:59 18:59 Intake Total 780 120 Output Total 1385 600 860 Balance -476 -600 -070 Intake: Oral 780 120 Output: Drainage 110 100 60 Right Lower Abdomen 110 100 60 Urine 1275 500 800 Uretheral (Zapata) 925 Other: Voiding Method Indwelling Catheter Toilet Toilet - Exam GENERAL: The patient is alert and oriented x3, not in any acute distress. Well developed, well nourished. HEENT: Pupils are round and equally reacting to light. EOMI. No scleral icterus. No conjunctival pallor. Normocephalic, atraumatic. No pharyngeal erythema. No thyromegaly. CARDIOVASCULAR: S1 and S2 present. No murmurs, rubs, or gallops. PULMONARY: Chest is clear to auscultation, no wheezing or crackles. -ABDOMEN: Soft, nontender, nondistended, normoactive bowel sounds. No palpable organomegaly. Dressing with surgical wound MUSCULOSKELETAL: No joint swelling or deformity. EXTREMITIES: No cyanosis, clubbing, or pedal edema. NEUROLOGICAL: Gross neurological examination did not reveal any focal deficits. SKIN: No rashes. no petechiae. - Labs CBC & Chem 7: 07/24/20 08:16 07/24/20 08:16 Labs: Abnormal Lab Results - Last 24 Hours (Table) 07/24/20 07/24/20 Range/Units 08:16 08:16 WBC 11.4 H (3.8-10.6) k/uL Neutrophils # 8.4 H (1.3-7.7) k/uL Chloride 111 H (98-107) mmol/L Carbon Dioxide 21 L (22-30) mmol/L BUN 6 L (7-17) mg/dL Glucose 122 H (74-99) mg/dL Assessment and Plan Assessment: Status post reversal of colostomy postoperative day 3 Mild Leukocytosis ,Unlikely infection. Improved now.. Hypovolemic hyponatremia. Resolved History of diverticulitis with abscess status post bowel resection and colostomy placement. History of Currently everyday smoker DVT prophylaxis with heparin subcu Plan: This is a pleasant 35 years old female who presents for reversal colostomy. Continue with. Operative management as per surgery primary team. Patient will be continued on IV hydration and pain management, bowel regimen and incentive spirometry. Repeat CBC and BMP tomorrow and follow-up WBC count closely. Monitor for any source of infection or fever. We will continue to follow with you and further recommendations based on the clinical course. Labs and medication were reviewed.. Continue same treatment. Continue with symptomatic treatment. Resume home medication. Monitor lytes and vitals. DVT and GI prophylaxis. Further recommendationsas per clinical course of the patient DVT prophylaxis: Subcutaneous heparin GI Prophylaxis: Pepcid we recommend patient follow up with PCP within one week after discharge, patient was instructed with the same Thank you for consulting us
[2020-07-25] MEDS: KETOROLAC 15 MG/ML 1 ML VIAL IVP SCH ×3 (00:09→11:54)
[2020-07-25] MEDS: ACETAMINOPHEN TAB 500 MG TAB PO SCH ×3 (00:09→11:54)
[2020-07-25] MEDS: HEPARIN SODIUM,PORCINE 5,000 UNIT/ML 1 ML VIAL SQ SCH ×2 (00:10→08:14)
[2020-07-25] MEDS: SODIUM CHLORIDE 0.9% 1,000 ML IV SCH (07:46)
[2020-07-25 07:47] VITALS: BP 133/84; PULSE 70; TEMP 97.9
[2020-07-25] MEDS: FAMOTIDINE 20 MG/2 ML VIAL IV SCH (08:14)
[2020-07-25] MEDS: ALVIMOPAN 12 MG CAPSULE PO SCH (08:14)
[2020-07-25] MEDS: GABAPENTIN 300 MG CAP PO SCH (08:14)
[2020-07-25 10:16] LABS: Basophils # (A) 0.1 k/uL (0-0.2); Basophils % (A) 1 %; Eosinophils # (A) 0.5 k/uL (0-0.7); Eosinophils % (A) 5 %; HCT 36.9 % (34.0-46.0); HGB 12.5 gm/dL (11.4-16.0); Lymphocytes # (A) 2.1 k/uL (1.0-4.8); Lymphocytes % (A) 22 %; MCH 32.6 pg (25.0-35.0); MCHC 33.9 g/dL (31.0-37.0); MCV 96.1 fL (80.0-100.0); Mean Platelet Volume 7.5; Monocytes # (A) 0.4 k/uL (0-1.0); Monocytes % (A) 4 %; Neutrophils # (A) 6.6 k/uL (1.3-7.7); Neutrophils % (A) 67 %; Platelet Count 337 k/uL (150-450); RBC 3.84 m/uL (3.80-5.40); RDW 13.5 % (11.5-15.5); WBC 9.7 k/uL (3.8-10.6)
[2020-07-25 10:25] LABS: ALT 8 U/L (4-34); AST 18 U/L (14-36); African American GFR (CKD) >90 (>60 ml/min/1.73 sqM); Albumin 3.3 g/dL (3.5-5.0); Alkaline Phosphatase 46 U/L (38-126); Anion Gap 6 mmol/L; Blood Urea Nitrogen 7 mg/dL (7-17); Carbon Dioxide 22 mmol/L (22-30); Chloride 110 mmol/L (98-107); Glucose 91 mg/dL (74-99); Non-African American GFR(CKD) >90 (>60 ml/min/1.73 sqM); Potassium 4.4 mmol/L (3.5-5.1); Sodium 138 mmol/L (137-145); Total Bilirubin 0.3 mg/dL (0.2-1.3)
--- NOTE | 2020-07-25 11:48 | P.DS ---
Providers Date of admission: 07/21/20 09:09 Expected date of discharge: 07/25/20 Attending physician: Jez Harrington Consults: 07/21/20 13:47 Consult Physician Routine Consulting Provider: Julianne Fernandes Consult Reason/Comments: Medical management Do you want consulting provider notified?: Yes Primary care physician: Akhil Chiang Hospital Course: Discharge diagnosis 1. History of perforated diverticulitis status post lower anterior resection and colostomy. She is now status post reversal of colostomy and repair of incisional hernia. 2. Hyperkalemia resolved Hospital course This is a 35-year-old female with a known history of perforated diverticulitis status post lower anterior resection with colostomy. She is now status post reversal of colostomy and repair of incisional hernia. Patient tolerated surgery well. She is tolerated advancement of diet. She is having bowel movements and passing gas. She is afebrile. She is ambulating without difficulty. Pain is controlled. She is stable for discharge. Please refer to chart for any further details. Physician Machine Carton Marker note has been reviewed by physician. Signing provider agrees with the documented findings, assessment, and plan of care. Patient Condition at Discharge: Stable Plan - Discharge Summary Discharge Rx Participant: No New Discharge Prescriptions: New Gabapentin [Neurontin] 300 mg PO TID #9 cap Acetaminophen Tab [Tylenol] 1,000 mg PO Q6HR PRN #30 tab PRN Reason: Pain Discharge Medication List Acetaminophen Tab [Tylenol] 1,000 mg PO Q6HR PRN #30 tab 07/25/20 [Rx] Gabapentin [Neurontin] 300 mg PO TID #9 cap 07/25/20 [Rx] Follow up Appointment(s)/Referral(s): Jez Harrington MD [STAFF PHYSICIAN] - 1 Week Patient Instructions/Handouts: Diverticulitis (GEN), Low Fiber Diet (GEN), Surgical Site Infections (ED) Activity/Diet/Wound Care/Special Instructions: No lifting over 10 pounds You may shower. No soaking or tub baths for 2 weeks Very light activity until you are reevaluated at your follow up appointment with your surgeon Low fiber diet Discharge Disposition: HOME SELF-CARE
--- NOTE | 2020-07-25 13:47 | P.PN ---
Subjective From records Patient is a 35-year-old female with a known history of diverticulitis and history of colostomy and bowel resection was admitted to the hospital for reversal of colostomy. Patient does have a history of perforated diverticulitis with abscess and underwent bowel resection and colostomy previously. Patient is currently status post surgery. Still feels very drowsy but alert and awake and oriented. Complains of pain at the surgical site which is controlled with medications.. Denied any chest pain or shortness breath. No nausea vomiting or abdominal pain or diarrhea. No fever no chills. Vitals blood pressure is 119/84, pulse is 77, respiration 20 and pulse ox 94% 3 L oxygen Laboratory data showed WBC 21.6, hemoglobin 14.9 and platelets 361 and neutrophils 19.9 Sodium 134, potassium 4.9, chloride 108 and bicarb is 20, BUN 10 and creatinine 0.79 and blood sugar is 147 07/22/2020 Patient is currently lying in the bed comfortably. Awake and more oriented today. No complaints of chest pain or shortness of breath. No cough or sputum production. Patient is being treated on incentive spirometry. No recent count improved to 19.0 today. Sodium 133 potassium 5.0 and chloride 108 and bicarb 18 BUN 8 and creatinine 0.62. No nausea or vomiting. Patient is not passing factors are no bowel movement yet. Continued on IV hydration and nothing by mouth. 07/23/2020 Patient is currently sitting on the side of the bed. No complaints of chest pain or shortness of breath. Abdominal pain is improving. Patient has been afebrile. Leukocytosis is improving as well. Patient is being continued on incentive spirometry. Antibiotics were added as per general surgery. Laboratory data showed sodium 135, potassium 6.0 and chloride 105 and bicarb is 18 Potassium supplementation the IV fluids have been discontinued and patient is being continued on normal saline currently. Follow-up CBC and BMP tomorrow. Subjective: This is first time I am taking care of the patient 07/24/2020 This is a pleasant 35% female with history of perforated diverticulitis status post anterior bowel resection admitted to the hospital for reversal of colostomy per surgery team. Today is postop day #3. Surgery team are following the patie nt closely and currently she is on liquid diet, she does not have bowel movement but she is passing gases. And her abdominal pain looks controlled as per patient WBC is a stable at 11.4. Sodium is normal today at 137, creatinine normal 0.7. Patient remains on normal saline at 75 mL/h 07/25/2020 This acute doing well, actually she feels better today. She is moving and talking more confidently. She denies significant abdominal pain and her pain is controlled, she had 2 bowel movements with no blood. She is tolerating diet well, as she is currently on a regular diet with no nausea vomiting. Patient states she can go home today. She denies any other symptoms. Her leukocytosis, came back to normal at 9.7K, risks of CBC is unremarkable. Potassium is normal yesterday and today at 4.4. Restoril BMP is unremarkable, liver enzymes not elevated. Objective - Vital Signs Vital signs: Vital Signs Temp 97.9 F 07/25/20 07:46 Pulse 70 07/25/20 07:46 Resp 18 07/25/20 07:46 BP 133/84 07/25/20 07:46 Pulse Ox 95 07/25/20 07:46 Intake & Output 07/24/20 07/25/20 07/25/20 18:59 06:59 18:59 Intake Total 120 Output Total 1190 645 115 Balance -1070 -645 -115 Intake: Oral 120 Output: Drainage 90 45 115 Right Lower Abdomen 90 45 115 Urine 1100 600 Other: Voiding Method Toilet # Voids 1 # Bowel Movements 1 - Exam GENERAL: The patient is alert and oriented x3, not in any acute distress. Well developed, well nourished. HEENT: Pupils are round and equally reacting to light. EOMI. No scleral icterus. No conjunctival pallor. Normocephalic, atraumatic. No pharyngeal erythema. No thyromegaly. CARDIOVASCULAR: S1 and S2 present. No murmurs, rubs, or gallops. PULMONARY: Chest is clear to auscultation, no wheezing or crackles. -ABDOMEN: Soft, nontender, nondistended, normoactive bowel sounds. No palpable organomegaly. Dressing with surgical wound, one vertical midline wound and 2 once on the side with the dressing in place MUSCULOSKELETAL: No joint swelling or deformity. EXTREMITIES: No cyanosis, clubbing, or pedal edema. NEUROLOGICAL: Gross neurological examination did not reveal any focal deficits. SKIN: No rashes. no petechiae. - Labs CBC & Chem 7: 07/25/20 10:02 07/25/20 10:02 Labs: Abnormal Lab Results - Last 24 Hours (Table) 07/25/20 Range/Units 10:02 Chloride 110 H (98-107) mmol/L Total Protein 6.0 L (6.3-8.2) g/dL Albumin 3.3 L (3.5-5.0) g/dL Assessment and Plan Assessment: Status post reversal of colostomy postoperative day 3 Mild Leukocytosis ,Unlikely infection. Improved now.. Hypovolemic hyponatremia. Resolved History of diverticulitis with abscess status post bowel resection and colostomy placement. History of Currently everyday smoker DVT prophylaxis with heparin subcu Plan: This is a pleasant 35 years old female who presents for reversal colostomy. Continue with. Operative management as per surgery primary team. Patient will be continued on IV hydration and pain management, bowel regimen and incentive spirometry. Repeat CBC and BMP tomorrow and follow-up WBC count closely. Monitor for any source of infection or fever. We will continue to follow with you and further recommendations based on the clinical course. Labs and medication were reviewed.. Continue same treatment. Continue with symptomatic treatment. Resume home medication. Monitor lytes and vitals. DVT and GI prophylaxis. Further recommendationsas per clinical course of the patient DVT prophylaxis: Subcutaneous heparin GI Prophylaxis: Pepcid Patient is medically stable. we recommend patient follow up with PCP within one week after discharge, patient was instructed with the same Thank you for consulting us
== END 2020-07-25 13:02 | disposition home or self-care (01) | DRG 345 ==
LOC: 2ORMAIN 09:09 → 6PED 15:13
PROVIDERS: ADMIT Surgery; ATTEND Surgery
PROC: 0WQF0ZZ Repair Abdominal Wall, Open Approach (ICD-10-PCS; principal; 2020-07-21 11:15)
PROC: 0DSN0ZZ Reposition Sigmoid Colon, Open Approach (ICD-10-PCS; principal; 2020-07-21 11:15)
DX: Z43.3 Encounter for attention to colostomy (principal); E87.1 Hypo-osmolality and hyponatremia; Z68.41 Body mass index [BMI] 40.0-44.9, adult; K43.2 Incisional hernia without obstruction or gangrene; E66.01 Morbid (severe) obesity due to excess calories; E86.1 Hypovolemia; E87.5 Hyperkalemia; F17.200 Nicotine dependence, unspecified, uncomplicated; Z80.8 Family history of malignant neoplasm of other organs or systems; Z82.3 Family history of stroke; Z98.891 History of uterine scar from previous surgery; Z98.51 Tubal ligation status
CPT/HCPCS: 76942; 80048; 80053; 85025; 86850; 86900; 86901; 88304

== ENCOUNTER 2020-09-13 14:58 | Inpatient (IN) | payer BC, OTHER ==
[2020-09-13] MEDS ORDERED: ONDANSETRON 4 MG/2 ML VIAL IVP STA (15:19)
[2020-09-13] MEDS ORDERED: MORPHINE SULFATE 4 MG/ML SYRINGE IV STA (15:19)
[2020-09-13] MEDS ORDERED: SODIUM CHLORIDE 0.9% 1,000 ML IV STA ×2 (15:19→15:53)
--- NOTE | 2020-09-13 15:22 | ED ---
General Adult HPI - General Stated complaint: vomiting Time Seen by Provider: 09/13/20 15:01 - History of Present Illness Initial comments: Dictation was produced using [employer] dictation software. please excuse any grammatical, word or spelling errors. This patient was cared for during a federal and state declared state of emergency secondary to Covid 19 Chief Complaint: 35-year-old female presents with feculent emesis History of Present Illness: 35-year-old female she is brought to us from home via EMS. Patient states she's been having feculent emesis since approximately 1 PM today. She's had a burning sensation in her left upper abdomen that is been progressively worse since Rudolph time. She states she is trying to take it easy since then. She's had no other issues recently. April of last year patient suffered from diverticulitis requiring bowel resection and colostomy placement. She had her colostomy reversed in July by Dr. Harrington. She has not had any major issues since the reversal. States she's been having small caliber stools that have been relatively hard over the last several weeks. Denies any fever, chills or night sweats. EMS states some of her emesis and place it in the bedside sink. The ROS documented in this emergency department record has been reviewed and confirmed by me. Those systems with pertinent positive or negative responses have been documented in the HPI. All other systems are other negative and/or noncontributory. PHYSICAL EXAM: General Impression: Alert and oriented x3, not in acute distress, emesis bag in the bedside sink it is dark in color and smells like stool HEENT: Normocephalic atraumatic, extra-ocular movements intact, pupils equal and reactive to light bilaterally, mucous membranes moist. Cardiovascular: Heart regular rate and rhythm Chest: Able to complete full sentences, no retractions, no tachypnea Abdomen: abdomen soft, non-tender, non-distended, no organomegaly, diffuse abdominal tenderness to palpation, multiple abdominal scars, voluntary guarding, no tympany Musculoskeletal: Pulses present and equal in all extremities, no peripheral e zeke Motor: no focal deficits noted Neurological: CN II-XII grossly intact, no focal motor or sensory deficits noted Skin: Intact with no visualized rashes Psych: Normal affect and mood ED course: 35-year-old female presents with feculent emesis for the last 3 hours. Laboratory evaluation obtained. Leukocytosis of 26.3, coag panel unremarkable. Metabolic panel shows potassium 6.0, creatinine 1.25. Lactic acidosis of 3.3. Rest of labs are unremarkable. Computed tomography scan of the abdomen pelvis was obtained showing moderate grade bowel obstruction with transition point at the sigmoid colonic surgical site. Patient placed in his gastric tube she is started on Zosyn. Case was discussed with Dr. Harrington who is willing to accept patients care for admission. - Related Data Home Medications Medication Instructions Recorded Confirmed Bismuth Subsalicylate 524 mg PO Q1H PRN MDD 240 ml 09/13/20 09/13/20 [Pepto-Bismol] Ibuprofen [Motrin Ib] 400 mg PO Q8H PRN 09/13/20 09/13/20 Previous Rx's Medication Instructions Recorded Acetaminophen Tab [Tylenol] 1,000 mg PO Q6HR PRN #30 tab 07/25/20 Allergies Allergy/AdvReac Type Severity Reaction Status Date / Time No Known Allergies Allergy Verified 09/13/20 16:08 Review of Systems ROS Statement: Those systems with pertinent positive or pertinent negative responses have been documented in the HPI. ROS Other: All systems not noted in ROS Statement are negative. Past Medical History Past Medical History: No Reported History Additional Past Medical History / Comment(s): diverticulitis History of Any Multi-Drug Resistant Organisms: None Reported Past Surgical History: Bowel Resection, Section, Cholecystectomy, Tubal Ligation Additional Past Surgical History / Comment(s): 3 Sections,colostomy Past Anesthesia/Blood Transfusion Reactions: Previous Problems w/ Anesthesia Additional Past Anesthesia/Blood Transfusion Reaction / Comment(s): Never had a blood transfusion. PATIENT STATES SHE FLAT LINED AFTER ALL 3 C- SECTIONS, NO PROBLEM WITH OTHER SURGERY. Smoking Status: Current every day smoker - Past Family History Mother History Unknown: Yes Family Medical History: Cancer, CVA/TIA Additional Family Medical History / Comment(s): Thyroid cancer, CVA. Father Family Medical History: Deep Vein Thrombosis (DVT) Additional Family Medical History / Comment(s): blood clot shoulder Course Vital Signs 09/13/20 09/13/20 15:00 17:55 Temperature 97.6 F Pulse Rate 97 81 Respiratory 16 18 Rate Blood Pressure 134/100 134/85 O2 Sat by Pulse 100 99 Oximetry Medical Decision Making - Lab Data Result diagrams: 09/13/20 15:11 09/13/20 15:11 Lab Results 09/13/20 09/13/20 09/13/20 Range/Units 15:11 15:11 15:11 WBC 26.3 H (3.8-10.6) k/uL RBC 5.37 (3.80-5.40) m/uL Hgb 17.1 H D (11.4-16.0) gm/dL Hct 50.7 H (34.0-46.0) % MCV 94.4 (80.0-100.0) fL MCH 31.9 (25.0-35.0) pg MCHC 33.8 (31.0-37.0) g/dL RDW 13.1 (11.5-15.5) % Plt Count 506 H (150-450) k/uL MPV 7.4 Neutrophils % 85 % Lymphocytes % 10 % Monocytes % 2 % Eosinophils % 1 % Basophils % 1 % Neutrophils # 22.4 H (1.3-7.7) k/uL Lymphocytes # 2.6 (1.0-4.8) k/uL Monocytes # 0.6 (0-1.0) k/uL Eosinophils # 0.3 (0-0.7) k/uL Basophils # 0.2 (0-0.2) k/uL PT (9.0-12.0) sec INR (<1.2) APTT (22.0-30.0) sec Sodium 136 L (137-145) mmol/L Potassium 6.0 H (3.5-5.1) mmol/L Chloride 100 (98-107) mmol/L Carbon Dioxide 21 L (22-30) mmol/L Anion Gap 15 mmol/L BUN 14 (7-17) mg/dL Creatinine 1.25 H (0.52-1.04) mg/dL Est GFR (CKD-EPI)AfAm 65 (>60 ml/min/1.73 sqM) Est GFR (CKD-EPI)NonAf 56 (>60 ml/min/1.73 sqM) Glucose 162 H (74-99) mg/dL Lactic Ac Sepsis Rflx Plasma Lactic Acid Kevin 3.3 H* (0.7-2.0) mmol/L Calcium 11.6 H (8.4-10.2) mg/dL Magnesium 2.2 (1.6-2.3) mg/dL Total Bilirubin 0.7 (0.2-1.3) mg/dL AST 35 (14-36) U/L ALT 24 (4-34) U/L Alkaline Phosphatase 94 (38-126) U/L Total Protein 9.8 H (6.3-8.2) g/dL Albumin 5.4 H (3.5-5.0) g/dL Lipase 84 (23-300) U/L HCG, Qual 09/13/20 09/13/20 09/13/20 Range/Units 15:11 15:11 15:50 WBC (3.8-10.6) k/uL RBC (3.80-5.40) m/uL Hgb (11.4-16.0) gm/dL Hct (34.0-46.0) % MCV (80.0-100.0) fL MCH (25.0-35.0) pg MCHC (31.0-37.0) g/dL RDW (11.5-15.5) % Plt Count (150-450) k/uL MPV Neutrophils % % Lymphocytes % % Monocytes % % Eosinophils % % Basophils % % Neutrophils # (1.3-7.7) k/uL Lymphocytes # (1.0-4.8) k/uL Monocytes # (0-1.0) k/uL Eosinophils # (0-0.7) k/uL Basophils # (0-0.2) k/uL PT 10.4 (9.0-12.0) sec INR 1.0 (<1.2) APTT 22.3 (22.0-30.0) sec Sodium (137-145) mmol/L Potassium (3.5-5.1) mmol/L Chloride (98-107) mmol/L Carbon Dioxide (22-30) mmol/L Anion Gap mmol/L BUN (7-17) mg/dL Creatinine (0.52-1.04) mg/dL Est GFR (CKD-EPI)AfAm (>60 ml/min/1.73 sqM) Est GFR (CKD-EPI)NonAf (>60 ml/min/1.73 sqM) Glucose (74-99) mg/dL Lactic Ac Sepsis Rflx Y Plasma Lactic Acid Kevin (0.7-2.0) mmol/L Calcium (8.4-10.2) mg/dL Magnesium (1.6-2.3) mg/dL Total Bilirubin (0.2-1.3) mg/dL AST (14-36) U/L ALT (4-34) U/L Alkaline Phosphatase (38-126) U/L Total Protein (6.3-8.2) g/dL Albumin (3.5-5.0) g/dL Lipase (23-300) U/L HCG, Qual Not Detected Disposition Clinical Impression: Bowel obstruction Disposition: ADMITTED IP TO THIS [facility] Condition: Critical Referrals: None,Stated [Primary Care Provider] - 1-2 days Decision Time: 17:58
[2020-09-13 15:23] LABS: Basophils # (A) 0.2 k/uL (0-0.2); Basophils % (A) 1 %; Eosinophils # (A) 0.3 k/uL (0-0.7); Eosinophils % (A) 1 %; HCT 50.7 % (34.0-46.0); Lymphocytes # (A) 2.6 k/uL (1.0-4.8); Lymphocytes % (A) 10 %; MCH 31.9 pg (25.0-35.0); MCHC 33.8 g/dL (31.0-37.0); MCV 94.4 fL (80.0-100.0); Mean Platelet Volume 7.4; Monocytes # (A) 0.6 k/uL (0-1.0); Monocytes % (A) 2 %; Neutrophils # (A) 22.4 k/uL (1.3-7.7); Neutrophils % (A) 85 %; Platelet Count 506 k/uL (150-450); RBC 5.37 m/uL (3.80-5.40); RDW 13.1 % (11.5-15.5); WBC 26.3 k/uL (3.8-10.6)
[2020-09-13 15:25] LABS: HGB 17.1 gm/dL (11.4-16.0)
[2020-09-13 15:31] LABS: Albumin 5.4 g/dL (3.5-5.0); Calcium 11.6 mg/dL (8.4-10.2); Magnesium 2.2 mg/dL (1.6-2.3); Partial Thromboplastin Time 22.3 sec (22.0-30.0); Prothrombin Time 10.4 sec (9.0-12.0); Total Bilirubin 0.7 mg/dL (0.2-1.3); Total Protein 9.8 g/dL (6.3-8.2)
--- NOTE | 2020-09-13 15:41 | XR ---
EXAMINATION TYPE: XR abdomen 1V DATE OF EXAM: 09/13/2020 3:34 PM CLINICAL HISTORY: Severe upper abdominal pain. History of colostomy with reversal July. Vomiting today. TECHNIQUE: There are 3 supine KUB images of the abdomen obtained. COMPARISON: Abdominal x-ray and outside CT March 19, 2020. FINDINGS: Some paucity of bowel gas. Gas seen in nondistended stomach. Gas seen a slightly prominent right and transverse colon. Cholecystectomy clips are redemonstrated. Tubal ligation clips in the pel vis redemonstrated. Visualized osseous structures intact. Visualized lung bases are clear. IMPRESSION: Overall nonspecific bowel gas pattern currently.
[2020-09-13] MEDS ORDERED: PIPERACILLIN-TAZOBACTAM 3.375 GM in SODIUM CHLORIDE 0.9% 100 ML IVPB STA (15:54)
--- NOTE | 2020-09-13 17:50 | CT ---
EXAMINATION TYPE: CT abdomen pelvis w con DATE OF EXAM: 09/13/2020 COMPARISON: 03/19/2020. HISTORY: Mid to upper abdominal pain. Post OP colostomy reversal [address] DLP: 1739.6 mGycm Automated exposure control for dose reduction was used. TECHNIQUE: Helical acquisition of images was performed from the lung bases through the pelvis. CONTRAST: Performed without Oral Contrast and with IV Contrast, patient injected with 100 mL of Isovue 300. FINDINGS: LUNG BASES: No significant abnormality is appreciated. LIVER/GB: No significant abnormality is appreciated. Cholecystectomy seen. PANCREAS: No significant abnormality is seen. SPLEEN: No significant abnormality is seen. ADRENALS: No significant abnormality is seen. KIDNEYS: No significant abnormality is seen. FREE AIR: No free air is visualized. RETROPERITONEAL ADENOPATHY: None visualized REPRODUCTIVE ORGANS: No significant abnormality is seen URINARY BLADDER: No significant abnormality is seen. PELVIC ADENOPATHY: None visualized. OSSEOUS STRUCTURES: No significant abnormality is seen. BOWEL: There are postsurgical changes involving the distal sigmoid colon. There are multiple dilated bowel loops involving the mid small bowel to the level of the sigmoid colonic surgical site. No sign ificant free air or fluid. OTHER: None. Tubal ligation clips seen. IMPRESSION: MODERATE GRADE BOWEL OBSTRUCTION WITH TRANSITION POINT AT SIGMOID COLONIC SURGICAL SITE
[2020-09-13] MEDS ORDERED: NALOXONE 0.4 MG/ML 1 ML VIAL IV PRN (17:58)
[2020-09-13] MEDS: ONDANSETRON 4 MG/2 ML VIAL IVP PRN (18:08)
[2020-09-13 18:30] LABS: Appearance,Urine Turbid (Clear); Bacteria,Urine Rare /hpf; Bilirubin,Urine Negative (Negative); Blood,Urine Negative (Negative); Color,Urine Yellow; Glucose,Urine (UA) Negative (Negative); Ketones,Urine Trace (Negative); Leukocyte Esterase,Urine Small (Negative); Mucus,Urine Rare /hpf; Nitrite,Urine Negative (Negative); Protein,Urine 1+ (Negative); RBC,Urine 18 /hpf (0-5); Squamous Epithelial Cell,Urine 116 /hpf (0-4); Urobilinogen,Urine <2.0 mg/dL (<2.0); WBC,Urine 25 /hpf (0-5)
[2020-09-13 18:31] LABS: Specific Gravity,Urine >1.050 (1.001-1.035)
[2020-09-13] MEDS ORDERED: LORazepam 2 MG/ML INJ IV STA (18:48)
[2020-09-13] MEDS: SODIUM CHLORIDE 0.9% 1,000 ML IV SCH (19:16)
--- NOTE | 2020-09-13 20:46 | XR ---
EXAM: Abdomen radiograph. HISTORY: NG tube placement. TECHNIQUE: Upright AP view. COMPARISON: Earlier same day FINDINGS: There is demonstration of an NG tube with tip overlying the stomach. There bowel loops are incomplete ly imaged, limiting evaluation. There are no pathologic calcifications. No acute osseous abnormality seen. IMPRESSION: NG tube with tip overlying the stomach.
[2020-09-13] MEDS: MORPHINE SULFATE 4 MG/ML SYRINGE IV PRN (23:56)
[2020-09-14] MEDS ORDERED: INSULIN REGULAR 100 UNIT/ML VIAL IV ONE (00:56)
[2020-09-14] MEDS ORDERED: DEXTROSE 50% SYRINGE 50 ML IVP STA (00:56)
[2020-09-14] MEDS: PIPERACILLIN-TAZOBACTAM 3.375 GM in SODIUM CHLORIDE 0.9% 100 ML IVPB SCH ×3 (01:54→18:53)
[2020-09-14] MEDS: PANTOPRAZOLE 40 MG/10 ML VIAL IVP SCH ×3 (01:54→20:24)
[2020-09-14] MEDS: SODIUM CHLORIDE 0.9% 1,000 ML IV SCH ×3 (01:55→18:50)
[2020-09-14 01:57] LABS: African American GFR (CKD) >90 (>60 ml/min/1.73 sqM); Anion Gap 9 mmol/L; Blood Urea Nitrogen 15 mg/dL (7-17); Calcium 9.9 mg/dL (8.4-10.2); Carbon Dioxide 21 mmol/L (22-30); Chloride 106 mmol/L (98-107); Glucose 109 mg/dL (74-99); Non-African American GFR(CKD) >90 (>60 ml/min/1.73 sqM); Potassium 5.5 mmol/L (3.5-5.1); Sodium 136 mmol/L (137-145)
--- NOTE | 2020-09-14 03:32 | XR ---
EXAM: XR Chest, 1 View CLINICAL HISTORY: ITS.REASON XR Reason: NG Tube placement TECHNIQUE: Frontal view of the chest. COMPARISON: 11/14/2016 FINDINGS: Lungs: Unremarkable. Pleural space: Unremarkable. Heart: Unremarkable. Mediastinum: Unremarkable. Bones/joints: Unremarkable. Tubes, lines and devices: Enteric tube with tip in the gastric fundus. IMPRESSION: Enteric tube with tip in the gastric fundus.
--- NOTE | 2020-09-14 03:57 | P.CONS ---
History of Present Illness - Reason for Consult Consult date: 09/14/20 (@[id number] notified through PS) hyperkalemia Requesting physician: Susan Acevedo - Chief Complaint fecal emesis - History of Present Illness 35 year old female with history of recurrent diverticulitis , presenting with fecal emesis , her story goes back to April 2020 when she had severe acute diverticulitis, required surgical intervention due to recurrent episodes had to have bowel resection and colostomy, this was reversed on . she claims that since then she thought she was improving gradually , however, she felt that her Stool never went back to normal , she always struggled with constipation and small caliber stool once every 5 days , and this got worse over the past month . in addition to this , 2 weeks ago she started experiencing progressive upper abd pain feels like burning pain , across her upper belly, progressively got worse until today she started having fecal like vomitous , she denies any geo bleeding , denies any fever or chills, but she feels very sick . she comes in today , in the ED, found to have leukocytosis, PETTY , hyperkalemia , and lactic acidosis . abd CT showed bowel obstruction surgery recommended NG tube and admission for IVF hydration and close monitoring , NG tube bringing up black drainage medicine consulted for management of PETTY and hyperkalemia Review of Systems Pertinent positives as noted in HPI. All other systems were reviewed and are negative Past Medical History Past Medical History: No Reported History Additional Past Medical History / Comment(s): diverticulitis History of Any Multi-Drug Resistant Organisms: None Reported Past Surgical History: Bowel Resection, Section, Cholecystectomy, Tubal Ligation Additional Past Surgical History / Comment(s): 3 Sections,colostomy Past Anesthesia/Blood Transfusion Reactions: Previous Problems w/ Anesthesia Additional Past Anesthesia/Blood Transfusion Reaction / Comm: Never had a blood transfusion. PATIENT STATES SHE FLAT LINED AFTER ALL 3 C- SECTIONS, NO PROBLEM WITH OTHER SURGERY. Past Psychological History: Anxiety, Depression, PTSD Smoking Status: Current some day smoker Past Alcohol Use History: None Reported Additional Past Alcohol Use History / Comment(s): STARTED SMOKING AT AGE 18, SMOKES 1/2 PPD. Past Drug Use History: None Reported Additional Drug Use History / Comment(s): smokes half a pack of cigarettes a day - Past Family History Mother History Unknown: Yes Family Medical History: Cancer, CVA/TIA Additional Family Medical History / Comment(s): Thyroid cancer, CVA. Father Family Medical History: Deep Vein Thrombosis (DVT) Additional Family Medical History / Comment(s): blood clot shoulder Medications and Allergies Home Medications Medication Instructions Recorded Confirmed Type Acetaminophen Tab [Tylenol] 1,000 mg PO Q6HR PRN #30 tab 07/25/20 09/13/20 Rx Bismuth Subsalicylate 524 mg PO Q1H PRN MDD 240 ml 09/13/20 09/13/20 History [Pepto-Bismol] Ibuprofen [Motrin Ib] 400 mg PO Q8H PRN 09/13/20 09/13/20 History Allergies Allergy/AdvReac Type Severity Reaction Status Date / Time No Known Allergies Allergy Verified 09/13/20 16:08 Physical Exam Vitals: Vital Signs Temp Pulse Pulse Resp BP BP Pulse Ox 09/13/20 22:04 97.6 F 89 18 132/94 99 09/13/20 20:20 110 H 16 137/87 95 09/13/20 18:08 97.5 F L 92 18 132/89 100 09/13/20 17:55 81 18 134/85 99 09/13/20 15:00 97.6 F 97 16 134/100 100 Intake and Output 09/13/20 09/13/20 09/14/20 14:59 22:59 06:59 Other: Voiding Method Toilet Weight 99.79 kg Constitutional: very uncomfortable reports abd pain , NG tube in place with dark discharge Eyes: Anicteric sclerae, moist conjunctiva, Pupils equal round reactive to light ENMT: NC/AT Oropharynx clear, no erythema, or exudates Neck: Supple, FROM, no masses, or JVD No carotid bruits No thyromegaly Lungs: Clear to auscultation Clear to percussion Normal respiratory effort, no accessory muscle use Cardiovascular: Heart regular in rate and rhythm, No murmurs, gallops, or rubs No peripheral edema Abdominal: mild distension , well healed scars severe tenderness over the right side of the abd to deep palpation with voluntary guarding, , no rebound or rigidity negative bowel sounds No palpable mass No abdominal wall hernia noted Skin: Normal temperature, tone, texture, turgor No induration No subcutaneous nodules No rash, lesions No ulcers Extremities: No digital cyanosis No clubbing Pedal pulses intact and symmetrical Radial pulses intact and symmetrical No calf tenderness Psychiatric: Alert and oriented to person, place and time Neuro Muscles Strength 4/5 in all 4 extremities Sensation to light touch grossly present throughout Cranial nerves II-XII grossly intact No focal sensory deficits Lymphatics: no palpable cervical or supraclavicular , or inguinal lymph nodes Results CBC & Chem 7: 09/13/20 15:11 09/14/20 01:22 Labs: Abnormal Lab Results - Last 24 Hours (Table) 09/13/20 09/13/20 09/13/20 Range/Units 15:11 15:11 15:11 WBC 26.3 H (3.8-10.6) k/uL Hgb 17.1 H D (11.4-16.0) gm/dL Hct 50.7 H (34.0-46.0) % Plt Count 506 H (150-450) k/uL Neutrophils # 22.4 H (1.3-7.7) k/uL Sodium 136 L (137-145) mmol/L Potassium 6.0 H (3.5-5.1) mmol/L Carbon Dioxide 21 L (22-30) mmol/L Creatinine 1.25 H (0.52-1.04) mg/dL Glucose 162 H (74-99) mg/dL Plasma Lactic Acid Kevin 3.3 H* (0.7-2.0) mmol/L Calcium 11.6 H (8.4-10.2) mg/dL Total Protein 9.8 H (6.3-8.2) g/dL Albumin 5.4 H (3.5-5.0) g/dL Urine Appearance (Clear) Ur Specific [place] (1.001-1.035) Urine Protein (Negative) Urine Ketones (Negative) Ur Leukocyte Esterase (Negative) Urine RBC (0-5) /hpf Urine WBC (0-5) /hpf Ur Squamous Epith Cells (0-4) /hpf Urine Bacteria (None) /hpf Urine Mucus (None) /hpf 09/13/20 Range/Units 18:00 WBC (3.8-10.6) k/uL Hgb (11.4-16.0) gm/dL Hct (34.0-46.0) % Plt Count (150-450) k/uL Neutrophils # (1.3-7.7) k/uL Sodium (137-145) mmol/L Potassium (3.5-5.1) mmol/L Carbon Dioxide (22-30) mmol/L Creatinine (0.52-1.04) mg/dL Glucose (74-99) mg/dL Plasma Lactic Acid Kevin (0.7-2.0) mmol/L Calcium (8.4-10.2) mg/dL Total Protein (6.3-8.2) g/dL Albumin (3.5-5.0) g/dL Urine Appearance Turbid H (Clear) Ur Specific [place] >1.050 H (1.001-1.035) Urine Protein 1+ H (Negative) Urine Ketones Trace H (Negative) Ur Leukocyte Esterase Small H (Negative) Urine RBC 18 H (0-5) /hpf Urine WBC 25 H (0-5) /hpf Ur Squamous Epith Cells 116 H (0-4) /hpf Urine Bacteria Rare H (None) /hpf Urine Mucus Rare H (None) /hpf Assessment and Plan Assessment: fecal emesisi with bowel obstruction PETTY hyperkalemia lactic acidosis management per surgery team IVF hydration with normal saline NG tube brought up 1 L of black drainage , connected to low intermittent suct ioning pain control empiric antibiotics with zosyn blood culture follow up electorlytes check EKG IV insulin 10 units with D50% one amp monitor urine output PPI Thank you for allowing us to participate in the care of this patient. Do not hesitate to contact us with questions. Someone can be reached from the [facility] hospitalist group at all hours of the day at [phone].
[2020-09-14] MEDS ORDERED: BENZOCAINE SPRAY 1 CAN MUCOUS MEM PRN (08:33)
[2020-09-14] MEDS: ONDANSETRON 4 MG/2 ML VIAL IVP PRN (09:53)
[2020-09-14 10:21] LABS: African American GFR (CKD) 110.7 (60.0-200.0); Anion Gap 11.5 mmol/L (4.00-12.00); Calcium 9.7 mg/dL (8.7-10.3); Carbon Dioxide 20.5 mmol/L (21.6-31.8); Non-African American GFR(CKD) 95.5 (60.0-200.0); Potassium 5.1 mmol/L (3.5-5.5)
--- NOTE | 2020-09-14 11:25 | P.GSHP ---
History of Present Illness H&P Date: 09/14/20 CHIEF COMPLAINT: Vomiting fecal material HISTORY OF PRESENT ILLNESS: This is a 35-year-old female with history of diverticulitis with abscess status post [place] procedure and colostomy placement in April 2020. She then had colostomy reversal in July 2020. Patient reports that she started having a burning sensation in her upper abdomen in the middle of August. She also has been dealing with very small hard pebble-like stools. Yesterday patient started vomiting fecal material and came into the emergency room for further evaluation and treatment. Patient had computed tomography scan of the abdomen and pelvis completed showing moderate grade bowel obstruction with transition point had sigmoid colonic surgical site. She had NG tube in place with the thousand mL output through the night and his fecal brownish color. Patient denies any fever chills or sweats. She is nauseated. Medicine service is following and did treat her hyperkalemia. She had leukocytosis with white count 26.3. PAST MEDICAL HISTORY: See list. PAST SURGICAL HISTORY: See list. MEDICATIONS: See list. ALLERGIES: See list. SOCIAL HISTORY: No illicit drug use. REVIEW OF SYSTEMS: CONSTITUTIONAL: Denies fever or chills. HEENT: Denies blurred vision, vision changes, or eye pain. Denies hemoptysis CARDIOVASCULAR: Denies chest pain or pressure. RESPIRATORY: No shortness of breath. GASTROINTESTINAL: See HPI for pertinent findings HEMATOLOGIC: Denies bleeding disorders. GENITOURINARY: Denies any blood in urine or increased urinary frequency. SKIN: Denies pruitis. Denies rash. PHYSICAL EXAM: VITAL SIGNS: Reviewed GENERAL: Well-developed in no acute distress. HEENT: No sclera icterus. Extraocular movements grossly intact. Moist buccal mucosa. Head is atraumatic, normocephalic. No nasal drainage. ABDOMEN: Soft. Distended. No tenderness with palpation NEUROLOGIC: Alert and oriented. Cranial nerves II through XII grossly intact. LABORATORY DATA: WBC 26.3 hemoglobin 17.1 Potassium 6 down to 5.1 creatinine 1.25-0.8 Lactic 3.3 down to 1 LFTs normal lipase normal, CoVid negative gastric occult blood negative IMAGING: computed tomography scan of the abdomen and pelvis completed showing moderate grade bowel obstruction with transition point had sigmoid colonic surgical site. ASSESSMENT: 1. Possible Colonic obstruction with computed tomography scan showing moderate grade bowel obstruction with transition point at sigmoid colonic surgical site 2. History of diverticulitis with abscess status post [place] procedure and colostomy placement in April 2020 3. Status post colostomy reversal in July 2020 4. Hypokalemia corrected and followed by medicine service PLAN: -Check computed tomography scan of abdomen and pelvis with rectal contrast only -Continue NG tube for decompression -Continue IV fluids -Continue IV antibiotics -GI prophylaxis Protonix and DVT prophylaxis subcu heparin Physician Supervisor Counseling And Guidance note has been reviewed by physician. Signing provider agrees with the documented findings, assessment, and plan of care. Past Medical History Past Medical History: No Reported History Additional Past Medical History / Comment(s): diverticulitis History of Any Multi-Drug Resistant Organisms: None Reported Past Surgical History: Bowel Resection, Section, Cholecystectomy, Tubal Ligation Additional Past Surgical History / Comment(s): 3 Sections,colostomy Past Anesthesia/Blood Transfusion Reactions: Previous Problems w/ Anesthesia Additional Past Anesthesia/Blood Transfusion Reaction / Comment(s): Never had a blood transfusion. PATIENT STATES SHE FLAT LINED AFTER ALL 3 C- SECTIONS, NO PROBLEM WITH OTHER SURGERY. Past Psychological History: Anxiety, Depression, PTSD Smoking Status: Current some day smoker Past Alcohol Use History: None Reported Additional Past Alcohol Use History / Comment(s): STARTED SMOKING AT AGE 18, SMOKES 1/2 PPD. Past Drug Use History: None Reported Additional Drug Use History / Comment(s): smokes half a pack of cigarettes a day - Past Family History Mother History Unknown: Yes Family Medical History: Cancer, CVA/TIA Additional Family Medical History / Comment(s): Thyroid cancer, CVA. Father Family Medical History: Deep Vein Thrombosis (DVT) Additional Family Medical History / Comment(s): blood clot shoulder Medications and Allergies Home Medications Medication Instructions Recorded Confirmed Type Acetaminophen Tab [Tylenol] 1,000 mg PO Q6HR PRN #30 tab 07/25/20 09/13/20 Rx Bismuth Subsalicylate 524 mg PO Q1H PRN MDD 240 ml 09/13/20 09/13/20 History [Pepto-Bismol] Ibuprofen [Motrin Ib] 400 mg PO Q8H PRN 09/13/20 09/13/20 History Allergies Allergy/AdvReac Type Severity Reaction Status Date / Time No Known Allergies Allergy Verified 09/13/20 16:08 Surgical - Exam Vital Signs Temp Pulse Resp BP Pulse Ox 97.6 F 97 16 134/100 100 09/13/20 15:00 09/13/20 15:00 09/13/20 15:00 09/13/20 15:00 09/13/20 15:00 Results - Labs 09/14/20 05:25 09/14/20 05:25 Abnormal Lab Results - Last 24 Hours (Table) 09/13/20 09/13/20 09/13/20 Range/Units 15:11 15:11 15:11 WBC 26.3 H (3.8-10.6) k/uL Hgb 17.1 H D (11.4-16.0) gm/dL Hct 50.7 H (34.0-46.0) % Plt Count 506 H (150-450) k/uL Neutrophils # 22.4 H (1.3-7.7) k/uL Sodium 136 L (137-145) mmol/L Potassium 6.0 H (3.5-5.1) mmol/L Carbon Dioxide 21 L (22-30) mmol/L Creatinine 1.25 H (0.52-1.04) mg/dL Glucose 162 H (74-99) mg/dL Plasma Lactic Acid Kevin 3.3 H* (0.7-2.0) mmol/L Calcium 11.6 H (8.4-10.2) mg/dL Total Protein 9.8 H (6.3-8.2) g/dL Albumin 5.4 H (3.5-5.0) g/dL Urine Appearance (Clear) Ur Specific [place] (1.001-1.035) Urine Protein (Negative) Urine Ketones (Negative) Ur Leukocyte Esterase (Negative) Urine RBC (0-5) /hpf Urine WBC (0-5) /hpf Ur Squamous Epith Cells (0-4) /hpf Urine Bacteria (None) /hpf Urine Mucus (None) /hpf 09/13/20 09/14/20 09/14/20 Range/Units 18:00 01:22 05:25 WBC (3.8-10.6) k/uL Hgb (11.4-16.0) gm/dL Hct (34.0-46.0) % Plt Count (150-450) k/uL Neutrophils # (1.3-7.7) k/uL Sodium 136 L (137-145) mmol/L Potassium 5.5 H (3.5-5.1) mmol/L Carbon Dioxide 21 L 20.5 L (22-30) mmol/L Creatinine (0.52-1.04) mg/dL Glucose 109 H (74-99) mg/dL Plasma Lactic Acid Kevin (0.7-2.0) mmol/L Calcium (8.4-10.2) mg/dL Total Protein (6.3-8.2) g/dL Albumin (3.5-5.0) g/dL Urine Appearance Turbid H (Clear) Ur Specific [place] >1.050 H (1.001-1.035) Urine Protein 1+ H (Negative) Urine Ketones Trace H (Negative) Ur Leukocyte Esterase Small H (Negative) Urine RBC 18 H (0-5) /hpf Urine WBC 25 H (0-5) /hpf Ur Squamous Epith Cells 116 H (0-4) /hpf Urine Bacteria Rare H (None) /hpf Urine Mucus Rare H (None) /hpf Diabetes panel 09/13/20 09/14/20 09/14/20 Range/Units 15:11 01:22 05:25 Sodium 136 L 136 L 136 (137-145) mmol/L Potassium 6.0 H 5.5 H 5.1 (3.5-5.1) mmol/L Chloride 100 106 104 (98-107) mmol/L Carbon Dioxide 21 L 21 L 20.5 L (22-30) mmol/L BUN 14 15 16.0 (7-17) mg/dL Creatinine 1.25 H 0.74 0.8 (0.52-1.04) mg/dL Glucose 162 H 109 H 98 (74-99) mg/dL Calcium 11.6 H 9.9 9.7 (8.4-10.2) mg/dL AST 35 (14-36) U/L ALT 24 (4-34) U/L Alkaline Phosphatase 94 (38-126) U/L Total Protein 9.8 H (6.3-8.2) g/dL Albumin 5.4 H (3.5-5.0) g/dL Calcium panel 09/13/20 09/14/20 09/14/20 Range/Units 15:11 01:22 05:25 Calcium 11.6 H 9.9 9.7 (8.4-10.2) mg/dL Albumin 5.4 H (3.5-5.0) g/dL Pituitary panel 09/13/20 09/14/20 09/14/20 Range/Units 15:11 01:22 05:25 Sodium 136 L 136 L 136 (137-145) mmol/L Potassium 6.0 H 5.5 H 5.1 (3.5-5.1) mmol/L Chloride 100 106 104 (98-107) mmol/L Carbon Dioxide 21 L 21 L 20.5 L (22-30) mmol/L BUN 14 15 16.0 (7-17) mg/dL Creatinine 1.25 H 0.74 0.8 (0.52-1.04) mg/dL Glucose 162 H 109 H 98 (74-99) mg/dL Calcium 11.6 H 9.9 9.7 (8.4-10.2) mg/dL Adrenal panel 09/13/20 09/14/20 09/14/20 Range/Units 15:11 01:22 05:25 Sodium 136 L 136 L 136 (137-145) mmol/L Potassium 6.0 H 5.5 H 5.1 (3.5-5.1) mmol/L Chloride 100 106 104 (98-107) mmol/L Carbon Dioxide 21 L 21 L 20.5 L (22-30) mmol/L BUN 14 15 16.0 (7-17) mg/dL Creatinine 1.25 H 0.74 0.8 (0.52-1.04) mg/dL Glucose 162 H 109 H 98 (74-99) mg/dL Calcium 11.6 H 9.9 9.7 (8.4-10.2) mg/dL Total Bilirubin 0.7 (0.2-1.3) mg/dL AST 35 (14-36) U/L ALT 24 (4-34) U/L Alkaline Phosphatase 94 (38-126) U/L Total Protein 9.8 H (6.3-8.2) g/dL Albumin 5.4 H (3.5-5.0) g/dL
[2020-09-14 11:51] LABS: Basophils % (A) 0 %; Eosinophils # (A) 0.1 k/uL (0-0.7); Eosinophils % (A) 1 %; HCT 46.3 % (34.0-46.0); HGB 14.6 gm/dL (11.4-16.0); Lymphocytes # (A) 2.9 k/uL (1.0-4.8); Lymphocytes % (A) 17 %; MCH 30.5 pg (25.0-35.0); MCHC 31.5 g/dL (31.0-37.0); MCV 96.8 fL (80.0-100.0); Mean Platelet Volume 8.8; Monocytes # (A) 1.2 k/uL (0-1.0); Monocytes % (A) 7 %; Neutrophils # (A) 12.8 k/uL (1.3-7.7); Neutrophils % (A) 74 %; Platelet Count 431 k/uL (150-450); RBC 4.79 m/uL (3.80-5.40); RDW 13.7 % (11.5-15.5); WBC 17.1 k/uL (3.8-10.6)
[2020-09-14] MEDS: MORPHINE SULFATE 4 MG/ML SYRINGE IV PRN (13:50)
--- NOTE | 2020-09-14 14:01 | P.PN ---
Subjective Progress Note Date: 09/14/20 Principal diagnosis: bowel obstruction Patient is still having abdominal pain and slight nausea. She is passing a little gas but no bm yet. NG tube hooked to suction and has black liquid material, that smells like stools. No fevers or chills. Objective - Vital Signs Vital signs: Vital Signs Temp 98.3 F 09/14/20 07:47 Pulse 100 09/14/20 07:47 Resp 19 09/14/20 07:47 BP 134/88 09/14/20 07:47 Pulse Ox 95 09/14/20 07:47 Intake & Output 09/13/20 09/14/20 09/14/20 18:59 06:59 18:59 Output Total 1150 Balance -1150 Weight 99.79 kg 99.79 kg Output: Gastric Drainage 800 Urine 350 Other: Voiding Method Toilet - Exam Constitutional: No acute distress, conversant, pleasant Eyes:Anicteric sclerae, moist conjunctiva, no lid-lag, PERRLA, ENMT: Oropharynx clear, no erythema, exudates Neck: Supple, FROM, no masses, or JVD, No carotid bruits, No thyromegaly Lungs: Clear to auscultation, Clear to percussion, Normal respiratory effort, no accessory muscle use Cardiovascular: Heart regular in rate and rhythm, No murmurs, gallops, or rubs, No peripheral edema Abdominal: Soft, tender, distended, no guarding, rebound or rigidity, No hepatomegaly, No splenomegaly, No palpable mass Skin: Normal temperature, tone, texture, turgor, no induration, No subcutaneous nodules, No rash, lesions, No ulcers Extremities: No digital cyanosis, No clubbing, Pedal pulses intact and symmetrical, Radial pulses intact and symmetrical, No calf tenderness Psychiatric: Alert and oriented to person, place and time, appropriate affect, intact judgement Neuro: Muscles Strength 5/5 in all 4 extremities, Sensation to light touch grossly present throughout, Cranial nerves II-XII grossly intact, no focal sensory deficits - Labs CBC & Chem 7: 09/14/20 05:25 09/14/20 05:25 Labs: Abnormal Lab Results - Last 24 Hours (Table) 09/13/20 09/13/20 09/13/20 Range/Units 15:11 15:11 15:11 WBC 26.3 H (3.8-10.6) k/uL Hgb 17.1 H D (11.4-16.0) gm/dL Hct 50.7 H (34.0-46.0) % Plt Count 506 H (150-450) k/uL Neutrophils # 22.4 H (1.3-7.7) k/uL Monocytes # (0-1.0) k/uL Sodium 136 L (137-145) mmol/L Potassium 6.0 H (3.5-5.1) mmol/L Carbon Dioxide 21 L (22-30) mmol/L Creatinine 1.25 H (0.52-1.04) mg/dL Glucose 162 H (74-99) mg/dL Plasma Lactic Acid Kevin 3.3 H* (0.7-2.0) mmol/L Calcium 11.6 H (8.4-10.2) mg/dL Total Protein 9.8 H (6.3-8.2) g/dL Albumin 5.4 H (3.5-5.0) g/dL Urine Appearance (Clear) Ur Specific [place] (1.001-1.035) Urine Protein (Negative) Urine Ketones (Negative) Ur Leukocyte Esterase (Negative) Urine RBC (0-5) /hpf Urine WBC (0-5) /hpf Ur Squamous Epith Cells (0-4) /hpf Urine Bacteria (None) /hpf Urine Mucus (None) /hpf 09/13/20 09/14/20 09/14/20 Range/Units 18:00 01:22 05:25 WBC (3.8-10.6) k/uL Hgb (11.4-16.0) gm/dL Hct (34.0-46.0) % Plt Count (150-450) k/uL Neutrophils # (1.3-7.7) k/uL Monocytes # (0-1.0) k/uL Sodium 136 L (137-145) mmol/L Potassium 5.5 H (3.5-5.1) mmol/L Carbon Dioxide 21 L 20.5 L (22-30) mmol/L Creatinine (0.52-1.04) mg/dL Glucose 109 H (74-99) mg/dL Plasma Lactic Acid Kevin (0.7-2.0) mmol/L Calcium (8.4-10.2) mg/dL Total Protein (6.3-8.2) g/dL Albumin (3.5-5.0) g/dL Urine Appearance Turbid H (Clear) Ur Specific [place] >1.050 H (1.001-1.035) Urine Protein 1+ H (Negative) Urine Ketones Trace H (Negative) Ur Leukocyte Esterase Small H (Negative) Urine RBC 18 H (0-5) /hpf Urine WBC 25 H (0-5) /hpf Ur Squamous Epith Cells 116 H (0-4) /hpf Urine Bacteria Rare H (None) /hpf Urine Mucus Rare H (None) /hpf 09/14/20 Range/Units 05:25 WBC 17.1 H (3.8-10.6) k/uL Hgb (11.4-16.0) gm/dL Hct 46.3 H (34.0-46.0) % Plt Count (150-450) k/uL Neutrophils # 12.8 H (1.3-7.7) k/uL Monocytes # 1.2 H (0-1.0) k/uL Sodium (137-145) mmol/L Potassium (3.5-5.1) mmol/L Carbon Dioxide (22-30) mmol/L Creatinine (0.52-1.04) mg/dL Glucose (74-99) mg/dL Plasma Lactic Acid Kevin (0.7-2.0) mmol/L Calcium (8.4-10.2) mg/dL Total Protein (6.3-8.2) g/dL Albumin (3.5-5.0) g/dL Urine Appearance (Clear) Ur Specific [place] (1.001-1.035) Urine Protein (Negative) Urine Ketones (Negative) Ur Leukocyte Esterase (Negative) Urine RBC (0-5) /hpf Urine WBC (0-5) /hpf Ur Squamous Epith Cells (0-4) /hpf Urine Bacteria (None) /hpf Urine Mucus (None) /hpf Assessment and Plan Plan: Fecal emesisi with bowel obstruction management per surgery team IVF hydration with normal saline NG tube brought up 1 L of black drainage , connected to low intermittent suctioning pain control empiric antibiotics with zosyn PPI blood culture PETTY hyperkalemia lactic acidosis K ok today, cr improved. follow up electorlytes Disposition: home Anticipated discharge: 2-3 days
--- NOTE | 2020-09-14 14:31 | CT ---
EXAMINATION TYPE: CT abdomen pelvis wo con DATE OF EXAM: 09/14/2020 HISTORY: Rectal contrast only. Follow up scan, colonic obstruction, status post colostomy reversal [address] DLP: 1120.2 mGycm. Automated Exposure Control for Dose Reduction was Utilized. TECHNIQUE: CT scan of the abdomen and pelvis is performed without oral or IV contrast. Rectal contra st is given. COMPARISON: CT from yesterday FINDINGS: Within the limitations of a non-contrast study, the following observations are made. LUNG BASES: Mild bibasilar linear atelectasis on current study. LIVER/GB: Cholecystectomy clips are redemonstrated. PANCREAS: No significant abnormality is seen. SPLEEN: No significant abnormality is seen. ADRENALS: No significant abnormality is seen. KIDNEYS: No hydronephrosis bilaterally. Contrast from recent CT filling bladder which has mild disten tion. BOWEL: Surgical changes sigmoid rectal colon with suture second image 81 redemonstrated. Contrast opa cification of the rectum is seen from enema. There is minimal enhancement proximal to this with persi stent prominent fecal and fluid filled colon up to site of sutures. A few right-sided air-fluid level s are present. There are dilated distal small bowel loops in the lower abdomen and pelvis. Incidental size appendix right lower quadrant redemonstrated. GENITAL ORGANS: Anteverted uterus redemonstrated. Tubal ligation clips along the periphery redemonstr ated. LYMPH NODES: No greater than 1cm abdominal or pelvic lymph nodes are appreciated. OSSEOUS STRUCTURES: No significant abnormality is seen. OTHER: No significant additional abnormality is seen. IMPRESSION: Persistent or confirmation of high-grade obstruction at site of re-anastomosis sigmoid re ctal colon.
[2020-09-14] MEDS: HEPARIN SODIUM,PORCINE 5,000 UNIT/ML 1 ML VIAL SQ SCH (20:24)
[2020-09-15] MEDS: PIPERACILLIN-TAZOBACTAM 3.375 GM in SODIUM CHLORIDE 0.9% 100 ML IVPB SCH ×2 (00:01→09:30)
[2020-09-15 06:51] LABS: Basophils # (A) 0.1 k/uL (0-0.2); Basophils % (A) 1 %; Eosinophils # (A) 0.4 k/uL (0-0.7); Eosinophils % (A) 3 %; HCT 41.2 % (34.0-46.0); HGB 13.3 gm/dL (11.4-16.0); Hypochromasia Slight; Lymphocytes # (A) 2.7 k/uL (1.0-4.8); Lymphocytes % (A) 23 %; MCH 31.9 pg (25.0-35.0); MCHC 32.3 g/dL (31.0-37.0); MCV 98.7 fL (80.0-100.0); Mean Platelet Volume 8.1; Monocytes # (A) 0.6 k/uL (0-1.0); Monocytes % (A) 5 %; Neutrophils # (A) 7.8 k/uL (1.3-7.7); Neutrophils % (A) 66 %; Platelet Count 313 k/uL (150-450); RBC 4.18 m/uL (3.80-5.40); RDW 13.3 % (11.5-15.5); WBC 11.7 k/uL (3.8-10.6)
[2020-09-15 08:19] VITALS: RESP 16
[2020-09-15] MEDS ORDERED: PROPOFOL 10 MG/ML 20 ML VIAL IV ONE (08:25)
[2020-09-15] MEDS ORDERED: IV FLUID CONTINUATION 1,000 ML IV ONE (08:25)
--- NOTE | 2020-09-15 09:15 | P.OP ---
Date of Procedure: 09/15/20 Preoperative Diagnosis: Colorectal anastomotic stricture Postoperative Diagnosis: Colorectal anastomotic stricture Procedure(s) Performed: Colonoscopy Anesthesia: MAC Surgeon: Jez Harrington Pathology: none sent Condition: stable Disposition: PACU Description of Procedure: The patient's placed on the endoscopy table lateral position. She received IV sedation. The colonoscope was then placed patient anus and passed into the rectum. The anastomosis was visualized. The anastomosis appeared to be str ictured. There was a small amount of liquid stool passing through the anastomosis. At this point the colonic dilatation balloon was placed across the stricture. The balloon was inflated to 15 mm. This was held position for 3 minutes. The balloon was then withdrawn. The colonoscopy is a passed beyond the colonic anastomosis. At this point the scope was withdrawn. Patient top she will was sent to recovery in stable condition.
[2020-09-15] MEDS: SODIUM CHLORIDE 0.9% 1,000 ML IV SCH ×2 (09:29)
[2020-09-15] MEDS: PANTOPRAZOLE 40 MG/10 ML VIAL IVP SCH (09:30)
[2020-09-15] MEDS: HEPARIN SODIUM,PORCINE 5,000 UNIT/ML 1 ML VIAL SQ SCH (09:30)
[2020-09-15 09:50] LABS: African American GFR (CKD) 110.7 (60.0-200.0); Anion Gap 8.6 mmol/L (4.00-12.00); Calcium 8.9 mg/dL (8.7-10.3); Carbon Dioxide 22.4 mmol/L (21.6-31.8); Non-African American GFR(CKD) 95.5 (60.0-200.0); Potassium 4.2 mmol/L (3.5-5.5)
[2020-09-15] MEDS ORDERED: PEG 3350-NA SULF,BICARB,CL/KCL 4,000 ML BOTTLE PO STA (10:51)
--- NOTE | 2020-09-15 13:04 | CDI ---
Documentation Clarification Form Date: 09/15/2020 13:02 CDS: Poly EDDIE Seth, CCDS Admit Date: 09/13/2020 17:58 Patient Name: Antoinette Gardner Discharge Date: ATTENTION: The Clinical Documentation Specialists (CDI) and [facility] Coding Staff appreciate your assistance in clarifying documentation. Please respond to the clarification below the line at the bottom and electronically sign. The CDI & [facility] Coding staff will review the response and follow-up if needed. Please note: Queries are made part of the Legal Health Record. If you have any questions, please contact the author of this message via ITS. Dear Dr. Jez Harrington: The patient is admitted with a Colorectal Anastomotic Stricture following a Colostomy in April 2020 for recurrent Diverticulitis with subsequent Colostomy reversal in July 2020. Patients Admitting Diagnosis: Possible colonic obstruction with CT Abdomen & Pelvis showing a moderate grade bowel obstruction with transition point at sigmoid colonic surgical site. Post-Operative Diagnosis: Colorectal Anastomotic Stricture Procedure performed: Colostomy April 2020, Reversal of Colostomy July 2020, Colonoscopy this admission 09/15/2019 History/Risk Factors: Recurrent diverticulitis, Bowel Resection, Cholecystectomy, C Sections x3. Clinical Indicators: Presented to the ED on 09/13 with feculent emesis. 09/13 CT Abdomen/Pelvis: Moderate grade bowel obstruction at the sigmoid colonic surgical site. Treatment: IV Morphine, IV Zofran, IV fluid bolus x2 1,000 mls @ 999 mls/hr q1, IV Zosyn, IV Ativan, IV Insulin, IV Protonix In order to accurately reflect this patients severity of illness, please clarify the significance of the patient's bowel obstruction: Is a complication of surgical procedure Is an expected outcome of the surgical procedure, please specify cause: Is related to co-morbid condition(s) of: Other please specify: Unable to determine (Last Revision: October 2019) UnAble to determine MTDD
--- NOTE | 2020-09-15 13:56 | P.DS ---
Providers Date of admission: 09/13/20 17:58 Expected date of discharge: 09/15/20 Attending physician: Jez Harrington Consults: 09/14/20 00:39 Consult Physician Urgent Consulting Provider: Anali Low Consult Reason/Comments: medical management/elevated potassium Do you want consulting provider notified?: Yes Primary care physician: Stated None Hospital Course: Discharge diagnosis 1. Colorectal anastomotic stricture status post colonoscopy with colonic dilation. 2. Colonic obstruction secondary to colorectal anastomotic stricture 3. History of diverticulitis with abscess status post [place] procedure and colostomy placement in April 2020 4. Status post colostomy reversal in July 2020 5. Hypokalemia corrected Hospital course This is a 35-year-old female with history of diverticulitis with abscess status post [place] procedure and colostomy placement in April 2020. She then had colostomy reversal in July 2020. Patient reports that she started having a burning sensation in her upper abdomen in the middle of August. She also has been dealing with very small hard pebble-like stools. Yesterday patient started vomiting fecal material and came into the emergency room for further evaluation and treatment. Patient had computed tomography scan of the abdomen and pelvis completed showing moderate grade bowel obstruction with transition point had sigmoid colonic surgical site. She had NG tube placed. She had a computed tomography scan of the abdomen and pelvis with rectal contrast which showed a persistent or confirmation of high-grade obstruction at site of re-anastomosis sigmoid rectal colon. Patient is now status post colonoscopy with colonic dilation for Colorectal anastomotic stricture. Patient tolerated procedure well. She is having bowel movements. She is tolerating diet. Denies any pain. She is ambulating. Afebrile. She is stable for discharge. Please refer to chart for any further details. Physician Music Engraver note has been reviewed by physician. Signing provider agrees with the documented findings, assessment, and plan of care. Patient Condition at Discharge: Stable Plan - Discharge Summary Discharge Rx Participant: Yes New Discharge Prescriptions: Continue Acetaminophen Tab [Tylenol] 1,000 mg PO Q6HR PRN #30 tab PRN Reason: Pain Ibuprofen [Motrin Ib] 400 mg PO Q8H PRN PRN Reason: Pain Or Fever > 100.5 Bismuth Subsalicylate [Pepto-Bismol] 524 mg PO Q1H PRN MDD 240 ml PRN Reason: upset stomach Discharge Medication List Acetaminophen Tab [Tylenol] 1,000 mg PO Q6HR PRN #30 tab 07/25/20 [Rx] Bismuth Subsalicylate [Pepto-Bismol] 524 mg PO Q1H PRN MDD 240 ml 09/13/20 [History] Ibuprofen [Motrin Ib] 400 mg PO Q8H PRN 09/13/20 [History] Follow up Appointment(s)/Referral(s): None,Stated [Primary Care Provider] - 1-2 days Jez Harrington MD [STAFF PHYSICIAN] - 1 Week Activity/Diet/Wound Care/Special Instructions: ok to discharge home this evening if tolerating diet Diet: Full Liquids and advance as tolerated over the next 2 days Activity: as tolerated Discharge Disposition: HOME SELF-CARE
--- NOTE | 2020-09-15 14:21 | P.PN ---
Subjective Progress Note Date: 09/15/20 Principal diagnosis: bowel obstruction Patient is feeling better this morning. She is status post balloon dilatation of the anastomosis stricture or colonoscopy. Starting to have bowel movements, abdominal pain is improved, started on diet, no nausea or vomiting. Objective - Vital Signs Vital signs: Vital Signs Temp 97.8 F 09/15/20 08:00 Pulse 100 09/15/20 08:00 Resp 16 09/15/20 08:00 BP 126/85 09/15/20 08:00 Pulse Ox 94 L 09/15/20 08:00 Intake & Output 09/14/20 09/15/20 09/15/20 18:59 06:59 18:59 Intake Total 200 Output Total 300 Balance -300 200 Intake: IV 200 Output: Urine 300 Other: # Voids 2 1 # Bowel Movements 2 - Exam Constitutional: No acute distress, conversant, pleasant Eyes:Anicteric sclerae, moist conjunctiva, no lid-lag, PERRLA, ENMT: Oropharynx clear, no erythema, exudates Neck: Supple, FROM, no masses, or JVD, No carotid bruits, No thyromegaly Lungs: Clear to auscultation, Clear to percussion, Normal respiratory effort, no accessory muscle use Cardiovascular: Heart regular in rate and rhythm, No murmurs, gallops, or rubs, No peripheral edema Abdominal: Soft, tender, distended, no guarding, rebound or rigidity, No hepatomegaly, No splenomegaly, No palpable mass Skin: Normal temperature, tone, texture, turgor, no induration, No subcutaneous nodules, No rash, lesions, No ulcers Extremities: No digital cyanosis, No clubbing, Pedal pulses intact and symmetrical, Radial pulses intact and symmetrical, No calf tenderness Psychiatric: Alert and oriented to person, place and time, appropriate affect, intact judgement Neuro: Muscles Strength 5/5 in all 4 extremities, Sensation to light touch grossly present throughout, Cranial nerves II-XII grossly intact, no focal sensory deficits - Labs CBC & Chem 7: 09/15/20 06:25 09/15/20 06:25 Labs: Abnormal Lab Results - Last 24 Hours (Table) 09/15/20 09/15/20 Range/Units 06:25 06:25 WBC 11.7 H (3.8-10.6) k/uL Neutrophils # 7.8 H (1.3-7.7) k/uL BUN/Creatinine Ratio 25.00 H (12.00-20.00) Ratio Microbiology - Last 24 Hours (Table) 09/13/20 16:10 Blood Culture - Preliminary Blood No Growth after 24 hours Assessment and Plan Plan: Fecal emesis with bowel obstruction secondary to anastomosis stricture Status post balloon dilatation of anastomosis site, patient currently better IVF hydration with normal saline pain control Antibiotics not needed upon discharge blood culture negative PETTY hyperkalemia lactic acidosis All resolved Patient can be cleared for discharge from the medical standpoint. Disposition: home Anticipated discharge: 2-3 days
[2020-09-15 16:04] VITALS: BP 132/89; PULSE 85; TEMP 98.1
== END 2020-09-15 18:12 | disposition home or self-care (01) | DRG 389 ==
LOC: EC 14:58 → 4SSUR 17:58
PROVIDERS: ADMIT Surgery; ATTEND Surgery
PROC: 0D9670Z Drainage of Stomach with Drainage Device, Via Natural or Artificial Opening (ICD-10-PCS; principal; 2020-09-13)
PROC: 0DJD8ZZ Inspection of Lower Intestinal Tract, Via Natural or Artificial Opening Endoscopic (ICD-10-PCS; 2020-09-15)
DX: K56.609 Unspecified intestinal obstruction, unspecified as to partial versus complete obstruction (principal); E87.2 Acidosis; N17.9 Acute kidney failure, unspecified; E87.5 Hyperkalemia; E87.6 Hypokalemia; F17.200 Nicotine dependence, unspecified, uncomplicated; D72.829 Elevated white blood cell count, unspecified; Z20.822 Contact with and (suspected) exposure to COVID-19; F32.9 Major depressive disorder, single episode, unspecified; F43.10 Post-traumatic stress disorder, unspecified; Z79.4 Long term (current) use of insulin; Z80.8 Family history of malignant neoplasm of other organs or systems; Z82.3 Family history of stroke; Z93.3 Colostomy status; Z82.49 Family history of ischemic heart disease and other diseases of the circulatory system; Z98.891 History of uterine scar from previous surgery; Z90.49 Acquired absence of other specified parts of digestive tract; Z98.51 Tubal ligation status; Z98.890 Other specified postprocedural states
CPT/HCPCS: 36415; 43753; 45386; 71045; 74018; 74176; 74177; 80048; 80053; 81001; 81025; 82271; 83605; 83690; 83735; 84703; 85025; 85610; 85730; 87040; 87635; 93005; 96361; 96365; 96375; 96376; 99285

== ENCOUNTER → 2020-10-16 | Outpatient (CLI) | payer BC, OTHER ==
[2020-10-16 14:31] VITALS: BP 114/89; PULSE 78; RESP 16; TEMP 98.8; BMI 42.1
--- NOTE | 2020-10-30 11:20 | P.HPBAR ---
Bariatric H&P - History & Physicial H&P Date: 11/13/20 History & Physicial: Visit/CC: Initial Visit Patient initial contact: Initial weight: 106.141 kg Initial weight in pounds: 234.00 Height: 5 ft 2.5 in Initial BMI: 42.1 Last weight: Current weight: 106.141 kg Current weight in pounds: 234.00 Current BMI: 42.1 [place] body weight (based on NIH guidelines): 51.029 kg Excess body weight loss: 0.0% The patient is a 35 year-old F who presents for Bariatric Assessment. Patient presents today for initial bariatric consultation. She's had lifetime problem obesity. Her BMI is 42. Past Medical History Past Medical History: No Reported History Additional Past Medical History / Comment(s): diverticulitis History of Any Multi-Drug Resistant Organisms: None Reported Past Surgical History: Bowel Resection, Section, Cholecystectomy, Tubal Ligation Additional Past Surgical History / Comment(s): 3 Sections,colostomy Past Anesthesia/Blood Transfusion Reactions: Previous Problems w/ Anesthesia Additional Past Anesthesia/Blood Transfusion Reaction / Comm: Never had a blood transfusion. PATIENT STATES SHE FLAT LINED AFTER ALL 3 C- SECTIONS, NO PROBLEM WITH OTHER SURGERY. Past Psychological History: Anxiety, Depression, PTSD Smoking Status: Current some day smoker Past Alcohol Use History: None Reported Additional Past Alcohol Use History / Comment(s): STARTED SMOKING AT AGE 18, SMOKES 1/2 PPD. Past Drug Use History: None Reported Additional Drug Use History / Comment(s): smokes half a pack of cigarettes a day - Past Family History Mother History Unknown: Yes Family Medical History: Cancer, CVA/TIA Additional Family Medical History / Comment(s): Thyroid cancer, CVA. Father Family Medical History: Deep Vein Thrombosis (DVT) Additional Family Medical History / Comment(s): blood clot shoulder Surgical - Exam Vital Signs Temp Pulse Resp BP 98.8 F 78 16 114/89 10/16/20 14:28 10/16/20 14:28 10/16/20 14:28 10/16/20 14:28 - General well developed, well nourished, no distress - Eyes PERRL - ENT normal pinna - Neck no masses - Respiratory normal expansion - Cardiovascular Rhythm: regular - Abdomen Abdomen: soft, non tender Bariatric Assessment & Plan Plan: Morbid obesity, BMI 42. Patient will undergo EGD. She'll follow-up in the clinic after this is performed. We went over the risks and benefits of sleeve gastrectomy. Patient is an excellent understanding of the procedure. Bariatric Checklist Checklist: Plan: Checklist: EGD: 1. Hiatal hernia: 2. H. Pylori: HgbA1c: Vitamin D: Smoking: Current every day smoker Primary care physician referral: NO PCP Psychiatry clearance: Cardiology clearance: Sleep study: Diet journal: VTE risk score: VTE risk level: Rehab needs at discharge:
== END | disposition home or self-care (01) ==
LOC: BARWHC3 13:59
PROVIDERS: ATTEND Surgery
DX: E66.01 Morbid (severe) obesity due to excess calories (principal); Z90.49 Acquired absence of other specified parts of digestive tract; Z68.41 Body mass index [BMI] 40.0-44.9, adult
CPT/HCPCS: 99211

== ENCOUNTER 2021-01-08 12:20 | Day surgery (SDC) | payer BC, OTHER ==
[2021-01-05 08:50] VITALS: BMI 43.3
[~2021-01-08 12:20] MED LIST changes: -ACETAMINOPHEN TAB 500 MG TAB PO ONE; -DEXAMETHASONE SOD PHOSPHATE 4 MG/ML 1 ML VIAL IV ONE; -HEPARIN SODIUM,PORCINE 5,000 UNIT/ML 1 ML VIAL SQ ONE; -HYDROmorphone 0.5 MG/0.5 ML SYRINGE IVP PRN; -MIDAZOLAM 2 MG/2 ML VIAL IV PRN; -ONDANSETRON 4 MG/2 ML VIAL IVP ONE; -SCOPOLAMINE 1.5MG/72HR PATCH TRANSDERM ONE; -metroNIDAZOLE-NS PMX 500 MG in SALINE 1 100ML.BAG IVPB ONE
[2021-01-08 12:56] VITALS: TEMP 97.4
[2021-01-08] MEDS ORDERED: DEXAMETHASONE SOD PHOSPHATE 10 MG/ML 1 ML VIAL ONE (13:08)
[2021-01-08] MEDS ORDERED: KETAMINE 10 MG/ML 20 ML VIAL ONE (13:08)
[2021-01-08] MEDS ORDERED: ONDANSETRON 4 MG/2 ML VIAL ONE (13:08)
[2021-01-08] MEDS ORDERED: LIDOCAINE 1% INJ 10MG/ML (20 ML MDV) ONE (13:08)
[2021-01-08] MEDS ORDERED: PROPOFOL 10 MG/ML 20 ML VIAL IV ONE (13:08)
--- NOTE | 2021-01-08 13:31 | P.GSHP ---
History of Present Illness H&P Date: 01/08/21 Chief Complaint: Colorectal anastomotic stricture This is a 35-year-old female with. History of perforated diverticula is. Patient has a colorectal anastomosis. Anastomotic stricture Past Medical History Past Medical History: No Reported History Additional Past Medical History / Comment(s): HX DIVERTICULITS, BOWEL RESECTION, CURRENT CONSTIPATION History of Any Multi-Drug Resistant Organisms: None Reported Past Surgical History: Bowel Resection, Section, Cholecystectomy, Tubal Ligation Additional Past Surgical History / Comment(s): 3 Sections,colostomy & reversal (Jul 2020) Past Anesthesia/Blood Transfusion Reactions: Previous Problems w/ Anesthesia Additional Past Anesthesia/Blood Transfusion Reaction / Comment(s): PATIENT STATES SHE FLAT LINED AFTER ALL 3 C- SECTIONS, NO PROBLEM WITH OTHER SURGERY. Past Psychological History: Anxiety, Depression, PTSD Additional Psychological History / Comment(s): no rx Smoking Status: Current some day smoker Past Alcohol Use History: None Reported Additional Past Alcohol Use History / Comment(s): STARTED SMOKING AT AGE 18, SMOKES 1/2 PPD. Past Drug Use History: None Reported Additional Drug Use History / Comment(s): . - Past Family History Mother History Unknown: Yes Family Medical History: Cancer, CVA/TIA Additional Family Medical History / Comment(s): Thyroid cancer, CVA. Father Family Medical History: Deep Vein Thrombosis (DVT) Additional Family Medical History / Comment(s): blood clot shoulder Medications and Allergies Home Medications Medication Instructions Recorded Confirmed Type Wheat Dextrin [Benefiber] 1 cap PO DAILY 01/05/21 01/05/21 History Allergies Allergy/AdvReac Type Severity Reaction Status Date / Time No Known Allergies Allergy Verified 01/05/21 08:35 Surgical - Exam Vital Signs Temp Pulse Resp BP Pulse Ox 97.4 F L 95 20 130/65 97 01/08/21 12:47 01/08/21 12:47 01/08/21 12:47 01/08/21 12:47 01/08/21 12:47 - General well developed, well nourished, no distress - Eyes PERRL - ENT normal pinna - Neck no masses - Respiratory normal expansion - Cardiovascular Rhythm: regular - Abdomen Abdomen: soft, non tender Assessment and Plan Assessment: Anastomotic stricture. We'll perform balloon dilatation.
--- NOTE | 2021-01-08 13:34 | P.OP ---
Date of Procedure: 01/08/21 Preoperative Diagnosis: Colorectal anastomotic stricture Postoperative Diagnosis: Colorectal anastomotic stricture Procedure(s) Performed: Colonoscopy with balloon dilatation of anastomotic stricture Anesthesia: MAC Surgeon: Jez Harrington Pathology: none sent Condition: stable Disposition: PACU Description of Procedure: The patient was placed on the endoscopy table in the lateral position. She received IV sedation. Digital rectal exam was performed which revealed no abnormalities. The colonoscope then placed patient's rectum. Patient had a colorectal anastomosis. This was visually is. The patient vessels appeared to be strictured. The balloon was positioned within the anastomosis. The balloon was then sequentially dilated up to 20 mm. Patient thought procedure well. Patient had no evidence of injury to the colorectal anastomosis. The colonoscope was withdrawn. Patient top she'll well.
[2021-01-08] MEDS ORDERED: IV FLUID CONTINUATION 500 ML IV ONE (13:45)
[2021-01-08] MEDS ORDERED: MORPHINE SULFATE 4 MG/ML SYRINGE ONE (14:01)
[2021-01-08] MEDS ORDERED: MORPHINE SULFATE 4 MG/ML SYRINGE IV ONE (14:04)
[2021-01-08 14:08] VITALS: RESP 18
[2021-01-08 14:29] VITALS: BP 117/65; PULSE 88
== END 2021-01-08 14:51 | disposition home or self-care (01) ==
LOC: ORWHC2ENDO 12:20
PROVIDERS: ATTEND Surgery
DX: K91.89 Other postprocedural complications and disorders of digestive system (principal); Z90.49 Acquired absence of other specified parts of digestive tract; K59.00 Constipation, unspecified; F41.9 Anxiety disorder, unspecified; F32.9 Major depressive disorder, single episode, unspecified; F43.10 Post-traumatic stress disorder, unspecified; F17.210 Nicotine dependence, cigarettes, uncomplicated; Z98.891 History of uterine scar from previous surgery; Z98.51 Tubal ligation status; Z82.3 Family history of stroke; Z80.8 Family history of malignant neoplasm of other organs or systems
CPT/HCPCS: 81025; 45386; J2270; J1100; J2405; J2001; J2704; C1726

== ENCOUNTER → 2021-03-08 | Outpatient (CLI) | payer BC, OTHER ==
[2021-03-08 14:00] LABS: Basophils # (A) 0.1 k/uL (0-0.2); Basophils % (A) 1 %; Eosinophils # (A) 0.3 k/uL (0-0.7); Eosinophils % (A) 2 %; HCT 43.8 % (34.0-46.0); HGB 14.9 gm/dL (11.4-16.0); Lymphocytes # (A) 3.8 k/uL (1.0-4.8); Lymphocytes % (A) 34 %; MCH 31.9 pg (25.0-35.0); MCHC 33.9 g/dL (31.0-37.0); MCV 93.9 fL (80.0-100.0); Monocytes # (A) 0.5 k/uL (0-1.0); Monocytes % (A) 5 %; Neutrophils # (A) 6.4 k/uL (1.3-7.7); Neutrophils % (A) 58 %; Platelet Count 351 k/uL (150-450); RBC 4.67 m/uL (3.80-5.40); RDW 13.4 % (11.5-15.5); WBC 11.1 k/uL (3.8-10.6)
== END | disposition home or self-care (01) ==
LOC: LABPAT 13:23
PROVIDERS: ATTEND Surgery
DX: Z01.812 Encounter for preprocedural laboratory examination (principal); K43.0 Incisional hernia with obstruction, without gangrene
CPT/HCPCS: 36415; 85025

== ENCOUNTER 2021-03-12 07:54 | Inpatient (IN) | payer BC, OTHER ==
[2021-03-08 10:35] VITALS: BMI 42.7
[~2021-03-12 07:54] MED LIST changes: +ACETAMINOPHEN TAB 500 MG TAB PO PRN; +DEXAMETHASONE SOD PHOSPHATE 4 MG/ML 1 ML VIAL IV ONE; +HEPARIN SODIUM,PORCINE/PF 5,000 UNIT/0.5 ML SYRINGE SQ PRN; -LACTATED RINGERS 1,000 ML IV SCH; +ONDANSETRON 4 MG/2 ML VIAL IVP ONE
[2021-03-12] MEDS ORDERED: LIDOCAINE 1% (10MG/ML) FOR IV START INTRADERMA ONE (09:00)
[2021-03-12] MEDS ORDERED: DEXAMETHASONE SOD PHOSPHATE 4 MG/ML 1 ML VIAL IV ONE (09:00)
[2021-03-12] MEDS: LACTATED RINGERS 1,000 ML IV SCH ×2 (09:00→14:38)
[2021-03-12] MEDS ORDERED: MIDAZOLAM 2 MG/2 ML VIAL IV ONE (09:09)
[2021-03-12] MEDS ORDERED: fentaNYL (PF) 50 MCG/ML 2 ML AMP IVP ONE (09:20)
--- NOTE | 2021-03-12 09:46 | P.GSHP ---
History of Present Illness H&P Date: 03/12/21 Chief Complaint: Incisional hernia This a 35-year-old female who presents today for open repair of incisional hernia. Patient's previous history of perforated diverticulitis with colostomy and subsequent reversal colostomy Past Medical History Past Medical History: No Reported History Additional Past Medical History / Comment(s): HX DIVERTICULITS, BOWEL RESECTION, CURRENT CONSTIPATION History of Any Multi-Drug Resistant Organisms: None Reported Past Surgical History: Bowel Resection, Section, Cholecystectomy, Tubal Ligation Additional Past Surgical History / Comment(s): 3 Sections,colostomy & reversal (Jul 2020), COLONOSCOPY Past Anesthesia/Blood Transfusion Reactions: Previous Problems w/ Anesthesia Additional Past Anesthesia/Blood Transfusion Reaction / Comment(s): PATIENT STATES SHE FLAT LINED AFTER ALL 3 C- SECTIONS, NO PROBLEM WITH OTHER SURGERY. Past Psychological History: Anxiety, Depression, PTSD Additional Psychological History / Comment(s): no rx Smoking Status: Former smoker Past Alcohol Use History: None Reported Additional Past Alcohol Use History / Comment(s): STARTED SMOKING AT AGE 18, SMOKES 1/2 PPD. QUIT SMOKING IN DECEMBER 2020 Past Drug Use History: None Reported Additional Drug Use History / Comment(s): . - Past Family History Mother History Unknown: Yes Family Medical History: Cancer, CVA/TIA Additional Family Medical History / Comment(s): Thyroid cancer, CVA. Father Family Medical History: Deep Vein Thrombosis (DVT) Additional Family Medical History / Comment(s): blood clot shoulder Medications and Allergies Home Medications Medication Instructions Recorded Confirmed Type Wheat Dextrin [Benefiber] 1 cap PO DAILY 01/05/21 03/08/21 History Allergies Allergy/AdvReac Type Severity Reaction Status Date / Time No Known Allergies Allergy Verified 03/08/21 10:28 Surgical - Exam Vital Signs Temp Pulse Resp BP Pulse Ox 97.8 F 90 20 147/69 97 03/12/21 08:30 03/12/21 08:30 03/12/21 08:30 03/12/21 08:30 03/12/21 08:30 - General well developed, well nourished, no distress - Eyes PERRL - ENT normal pinna - Neck no masses - Respiratory normal expansion - Cardiovascular Rhythm: regular - Abdomen Abdomen: soft, non tender Assessment and Plan Assessment: Incisional hernia. We'll perform repair.
[2021-03-12] MEDS ORDERED: SODIUM CHLORIDE 0.9% (PF) 10 ML VIAL ONE (09:55)
[2021-03-12] MEDS ORDERED: HYDROmorphone (PF) 1 MG/ML ONE (09:55)
[2021-03-12] MEDS ORDERED: PROPOFOL 10 MG/ML 20 ML VIAL IV ONE (09:55)
[2021-03-12] MEDS ORDERED: KETAMINE 10 MG/ML 20 ML VIAL ONE (09:55)
[2021-03-12] MEDS ORDERED: SUCCINYLCHOLINE CHLORIDE 100 MG/5 ML SYR IV ONE (09:55)
[2021-03-12] MEDS ORDERED: ROCURONIUM 10 MG/ML (5 ML VIAL) IV ONE (09:55)
[2021-03-12] MEDS ORDERED: GLYCOPYRROLATE 0.2 MG/ML 2 ML VIAL ONE (09:55)
[2021-03-12] MEDS ORDERED: KETOROLAC 15 MG/ML 1 ML VIAL ONE (09:55)
[2021-03-12] MEDS ORDERED: ROPIVACAINE 5 MG/ML 30 ML VIAL ONE (09:55)
[2021-03-12] MEDS ORDERED: LIDOCAINE 1% INJ 10MG/ML (20 ML MDV) ONE (09:55)
[2021-03-12] MEDS ORDERED: fentaNYL (PF) 50 MCG/ML 2 ML AMP ONE (09:55)
--- NOTE | 2021-03-12 10:27 | P.ANPRN ---
Procedure Note - Anesthesia - Nerve Block Performed Bilateral Erector Spinae Single Time Out Performed: Yes Date of Procedure: 03/12/21 Procedure Start Time: :08 Procedure Stop Time: :15 Location of Patient: PreOp Indication: Acute Post-Operative Pain Specifically requested for management of pain by DrAkosua: Jez Harrington Sedation Type: Sedate with meaningful contact maintained Preparation: Sterile Prep Position: Prone Catheter: None Needle Types: Pajunk Needle Gauge: 21 (100mm) Ultrasound used to visualize needle placement: Yes Ultrasound used to observe medication spread: Yes Injectate: 0.5% Ropivacaine (see comment for volume) (30cc and 10cc saline) Blood Aspirated: No Pain Paresthesia on Injection Noted: No Resistance on Injection: Normal Image Stored and Saved: Yes Events: Uneventful and Well Tolerated
--- NOTE | 2021-03-12 11:32 | P.OP ---
Date of Procedure: 03/12/21 Preoperative Diagnosis: Incisional hernia Postoperative Diagnosis: Incarcerated incisional hernia Procedure(s) Performed: Open repair of incisional hernia with mesh Anesthesia: JUAN Surgeon: Jez Harrington Estimated Blood Loss (ml): 25 Pathology: none sent Condition: stable Disposition: PACU Operative Findings: The hernia defect measured approximately 20 x 5 cm. Prolene mesh was used to repair the hernia the mesh was cut to an appropriate size. On the hernia. The mesh was secured with a secure strap tacker. Description of Procedure: Patient's placed on the operating table in the supine position. She received general anesthesia. Her abdomen was prepped and draped usual sterile fashion. The patient had a large hernia located along the midline scar. Using a 10 blade the skin was incised in the left cautery and subcu tissues were divided off of the hernia sac. The fascial defect was exposed. The fascia external oblique was exposed. The hernia defect was then closed using interrupted [id number] 0 Ethibond suture. #1 status affixed was then used to repair the fascia. A piece of Prolene mesh placed over top apparent secured the secure strand tacker. A TRINY drains placed over top of the mesh and brought out through separate stab incision. Itz's fascia closed 0 Vicryl. Skin was closed felipe. Patient top she will was sent to recovery room in stable condition.
[2021-03-12] MEDS ORDERED: NALOXONE 0.4 MG/ML 1 ML VIAL IV PRN (11:33)
[2021-03-12] MEDS ORDERED: LACTATED RINGERS 1,000 ML IV ONE ×2 (11:33→12:20)
[2021-03-12] MEDS ORDERED: ONDANSETRON 4 MG/2 ML VIAL IVP PRN (11:33)
[2021-03-12] MEDS: HYDROmorphone 0.5 MG/0.5 ML SYRINGE IVP PRN ×3 (11:52→19:23)
[2021-03-12] MEDS ORDERED: diphenhydrAMINE 50 MG/ML 1 ML VIAL IVP ONE (11:56)
[2021-03-12] MEDS: KETOROLAC 15 MG/ML 1 ML VIAL IVP SCH ×3 (14:42→23:46)
[2021-03-12] MEDS: D5-0.45% NACL WITH KCL 20MEQ/L 1,000 ML IV SCH (18:27)
--- NOTE | 2021-03-12 20:28 | CONS ---
CONSULTATION DATE OF SERVICE: 03/12/2021. REASON FOR CONSULTATION: ( ) regarding multiple medical issues, requested by Dr. Harrington. HISTORY OF PRESENT ILLNESS: This 35-year-old woman with a past history of diverticulitis, bowel resection. History of anxiety, depression, PTSD, ( ) primary physician in the outpatient setting, underwent open repair of incisional hernia with mesh for incarcerated incisional hernia by Dr. Harrington. The patient tolerated the procedure well. There is no history of chest pain, palpitation, headache, loss of consciousness, seizures at this time. PAST MEDICAL HISTORY: Diverticulitis, bowel resection, anxiety, depression, PTSD. MEDICATIONS: Benefiber. ALLERGIES: None. FAMILY HISTORY: History of CVA, TIA, thyroid cancer, CVA. SOCIAL HISTORY: History of smoking half pack of cigarettes per day. No history of alcohol intake. REVIEW OF SYSTEMS: ENT: No diminished vision. CARDIOVASCULAR: No angina. RESPIRATION: No cough, hemoptysis. GI: As mentioned. : No dysuria. NERVOUS SYSTEM: No numbness or weakness. ALLERGY/IMMUNOLOGY: No asthma, hay fever. MUSCULOSKELETAL: As mentioned earlier. HEMATOLOGY/ONCOLOGY: History anemia. ENDOCRINE: No history of diabetes or hypothyroidism. CONSTITUTIONAL: As mentioned earlier. DERMATOLOGY: Negative. PSYCHIATRY: As mentioned. PHYSICAL EXAMINATION: Pulse 67, blood pressure 120/90, respirations 16, temperature normal, pulse ox 97% on 2 L. HEENT: Conjunctivae are normal. Oral mucosa moist. NECK: No jugular venous distention. No lymph node enlargement. CARDIOVASCULAR SYSTEM: S1, S2 muffled. RESPIRATION: Breath sounds diminished at the bases. No rhonchi. No crackles. ABDOMEN: Soft. Status post surgery. LEGS: No edema, no swelling. NERVOUS SYSTEM: Higher functions as mentioned. Moves all 4 limbs. No focal motor signs. LYMPHATICS: None. SKIN: No ulcer, no ulcer joints no active deforming arthropathy. LABS: At this time shows the preop labs: CBC within normal limits. The chemistries also within normal limits. ASSESSMENT: 1. Status post open repair of incisional hernia with mesh. 2. History of diverticulitis, bowel resection. 3. History of constipation. 4. History of anxiety, depression, PTSD. 5. History of nicotine dependence. 6. Obesity with body mass of 44.6. 7. FULL CODE. DISCUSSION: This 35-year-old woman who presented with multiple complex medical issues, at this time I recommend to continue the current medication, continue symptomatic treatment. Otherwise, incentive spirometry, DVT prophylaxis. Will follow the patient closely. The patient may be asked to follow up with primary physician closely after discharge. Thank you, Dr. Harrington, for letting us participate in the care of this patient. MMODL / IJN: [id number] /
[2021-03-13] MEDS: HYDROmorphone 0.5 MG/0.5 ML SYRINGE IVP PRN ×2 (02:08→11:58)
[2021-03-13] MEDS: D5-0.45% NACL WITH KCL 20MEQ/L 1,000 ML IV SCH ×2 (02:08→11:34)
[2021-03-13] MEDS: KETOROLAC 15 MG/ML 1 ML VIAL IVP SCH ×4 (06:07→23:51)
[2021-03-13] MEDS: ENOXAPARIN 40 MG/0.4 ML SYRINGE SQ SCH (09:09)
[2021-03-13] MEDS: ALBUTEROL NEBULIZED 2.5 MG/3 ML INHALATION SCH ×3 (11:35→20:35)
--- NOTE | 2021-03-13 12:19 | XR ---
EXAMINATION TYPE: XR chest 1V portable DATE OF EXAM: 03/13/2021 COMPARISON: 09/14/2020 HISTORY: wheezing, low pulse ox TECHNIQUE: Single frontal view of the chest is obtained. FINDINGS: There is new airspace disease seen in the right lower lung zone. The cardiac silhouette is not enlarged. IMPRESSION: New airspace disease of the right lower lung zone.
[2021-03-13] MEDS ORDERED: FUROSEMIDE 10 MG/ML 4 ML VIAL IV STA (13:46)
--- NOTE | 2021-03-13 13:49 | P.PN ---
Subjective Progress Note Date: 03/13/21 CHIEF COMPLAINT: Incarcerated incisional hernia HISTORY OF PRESENT ILLNESS: Patient is status post open repair of incisional hernia with mesh for an incarcerated incisional hernia. Patient reports that her pain is controlled. She denies any nausea or vomiting. She is tolerating diet. She is having flatus. She does complain of some left lower quadrant pain where she has a active small bruise. She has been requiring oxygen. She did drop down to 89% on room air and is currently on 2 L satting at 92%. Patient is a smoker. Her IV fluids have been discontinued. Medicine service did order a dose of IV Lasix Chest x-ray new airspace disease of the right lower lung zone PHYSICAL EXAM: VITAL SIGNS: Reviewed. GENERAL: Well-developed in no acute distress. HEENT: No sclera icterus. Extraocular movements grossly intact. Moist buccal mucosa. Head is atraumatic, normocephalic. ABDOMEN: Soft. Nondistended. Incision sites clean dry and intact. Patient does have a small bruise in the left lower quadrant with some tenderness NEUROLOGIC: Alert and oriented. Cranial nerves II through XII grossly intact. ASSESSMENT: 1. Incarcerated incisional hernia status post open repair of incisional hernia with mesh. 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 Signing provider agrees with the documented findings, assessment, and plan of care. Objective - Vital Signs Vital signs: Vital Signs Temp 97.9 F 03/13/21 08:35 Pulse 83 03/13/21 11:59 Resp 20 03/13/21 11:59 BP 118/76 03/13/21 08:35 Pulse Ox 92 L 03/13/21 11:59 Intake & Output 03/12/21 03/13/21 03/13/21 18:59 06:59 18:59 Intake Total 1210 260 Output Total 175 151 70 Balance 1035 109 -70 Weight 109.9 kg Intake: IV 1150 Oral 60 260 Output: Drainage 150 50 70 Right 150 50 70 Urine 101 Estimated Blood Loss 25 Other: Voiding Method Toilet # Voids 200
--- NOTE | 2021-03-13 14:41 | PN ---
PROGRESS NOTE DATE OF SERVICE: 03/13/2021 This 35-year-old woman was admitted after open repair of incisional hernia repair with mesh is being complaining of shortness of breath at this time. The patient asthma. Patient has a history of smoking. PAST MEDICAL HISTORY: Reviewed. REVIEW OF SYSTEMS: Cardiovascular system: No angina. Respiratory: As mentioned earlier. GI: As mentioned earlier. no dysuria. Nervous system: No numbness, weakness. MEDICATIONS: Reviewed and include: Ventolin, Colace, Dilaudid, Toradol, Narcan and Zofran. PHYSICAL EXAMINATION: Patient is alert, oriented times three. Pulse 82, blood pressure 118/73, respiration 20, temperature 97.9, pulse ox 92 percent on 2 L. HEENT: Conjunctivae normal. NECK: No JVD. CARDIOVASCULAR: S1, S2 muffled. RESPIRATORY SYSTEM: Breath sounds diminished at the bases. A few scattered rhonchi and crackles. Expiratory wheezing. ABDOMEN: Soft, obese. LEGS: No edema. No swelling. NERVOUS SYSTEM: No focal deficits. LABS: Not available. ASSESSMENT: 1. Status post open repair of incisional hernia with mesh. 2. Shortness of breath, possibly rule out fluid overload, possible chronic obstructive pulmonary disease. cxr showing fluid overload 3. History of diverticulitis, bowel resection. 4. History of constipation. 5. History of anxiety and depression, PTSD. 6. History of nicotine dependence. 7. Obesity with body mass index of 44.6. 8. FULL CODE. RECOMMENDATIONS AND DISCUSSION: Recommend to continue current medications, management and symptomatic treatment. I would recommend to stop the fluids, Lasix 40 and I would also recommend bronchodilators. Chest x-ray. Basic labs. Repeat troponin. Recommend close followup with primary physician closely after discharge. We will follow the patient closely with you. EKG. Thank you Dr. Harrington for letting us participate in the care of this patient. We will be happy to review any abnormal labs. MMODL / IJN: [id number] / MTDD
[2021-03-13 15:01] LABS: Basophils # (A) 0.1 k/uL (0-0.2); Basophils % (A) 0 %; Eosinophils # (A) 0.2 k/uL (0-0.7); Eosinophils % (A) 1 %; HCT 41.9 % (34.0-46.0); HGB 13.9 gm/dL (11.4-16.0); Lymphocytes # (A) 3.5 k/uL (1.0-4.8); Lymphocytes % (A) 18 %; MCH 31.4 pg (25.0-35.0); MCHC 33.1 g/dL (31.0-37.0); MCV 94.8 fL (80.0-100.0); Mean Platelet Volume 7.3; Monocytes # (A) 0.9 k/uL (0-1.0); Monocytes % (A) 5 %; Neutrophils # (A) 14.7 k/uL (1.3-7.7); Neutrophils % (A) 75 %; Platelet Count 357 k/uL (150-450); RBC 4.42 m/uL (3.80-5.40); WBC 19.6 k/uL (3.8-10.6)
[2021-03-13 15:04] LABS: ALT 10 U/L (4-34); AST 22 U/L (14-36); African American GFR (CKD) >90 (>60 ml/min/1.73 sqM); Alkaline Phosphatase 69 U/L (38-126); Anion Gap 9 mmol/L; Blood Urea Nitrogen 17 mg/dL (7-17); Calcium 9.5 mg/dL (8.4-10.2); Carbon Dioxide 20 mmol/L (22-30); Chloride 107 mmol/L (98-107); Glucose 97 mg/dL (74-99); Non-African American GFR(CKD) >90 (>60 ml/min/1.73 sqM); Potassium 4.5 mmol/L (3.5-5.1); Sodium 136 mmol/L (137-145); Total Bilirubin 0.5 mg/dL (0.2-1.3); Total Protein 6.8 g/dL (6.3-8.2)
[2021-03-13 18:26] LABS: Appearance,Urine Cloudy (Clear); Bacteria,Urine Rare /hpf; Bilirubin,Urine Negative (Negative); Blood,Urine Negative (Negative); Color,Urine Colorless; Glucose,Urine (UA) Negative (Negative); Ketones,Urine Negative (Negative); Leukocyte Esterase,Urine Negative (Negative); Mucus,Urine Rare /hpf; Nitrite,Urine Negative (Negative); Protein,Urine Negative (Negative); RBC,Urine <1 /hpf (0-5); Specific Gravity,Urine 1.006 (1.001-1.035); Squamous Epithelial Cell,Urine 2 /hpf (0-4); Urobilinogen,Urine <2.0 mg/dL (<2.0); WBC,Urine 1 /hpf (0-5)
[2021-03-13] MEDS: HYDROcodone/APAP 5-325MG 1 EACH TAB PO PRN (20:49)
[2021-03-13] MEDS: DOCUSATE 100 MG CAP PO SCH (20:50)
[2021-03-14] MEDS: ALBUTEROL NEBULIZED 2.5 MG/3 ML INHALATION SCH ×6 (02:01→20:44)
[2021-03-14] MEDS: PANTOPRAZOLE 40 MG TABLET PO SCH (06:19)
[2021-03-14] MEDS: KETOROLAC 15 MG/ML 1 ML VIAL IVP SCH (06:19)
[2021-03-14 07:04] LABS: Basophils # (A) 0.1 k/uL (0-0.2); Basophils % (A) 1 %; Eosinophils # (A) 0.5 k/uL (0-0.7); Eosinophils % (A) 4 %; HCT 38.8 % (34.0-46.0); HGB 13.2 gm/dL (11.4-16.0); Lymphocytes # (A) 2.8 k/uL (1.0-4.8); Lymphocytes % (A) 19 %; MCH 32.1 pg (25.0-35.0); MCHC 33.9 g/dL (31.0-37.0); MCV 94.7 fL (80.0-100.0); Mean Platelet Volume 7.3; Monocytes # (A) 0.9 k/uL (0-1.0); Monocytes % (A) 7 %; Neutrophils # (A) 9.8 k/uL (1.3-7.7); Neutrophils % (A) 69 %; Platelet Count 317 k/uL (150-450); RDW 13.5 % (11.5-15.5); WBC 14.3 k/uL (3.8-10.6)
[2021-03-14 07:20] LABS: African American GFR (CKD) >90 (>60 ml/min/1.73 sqM); Anion Gap 8 mmol/L; Blood Urea Nitrogen 20 mg/dL (7-17); Calcium 9.4 mg/dL (8.4-10.2); Carbon Dioxide 20 mmol/L (22-30); Chloride 107 mmol/L (98-107); Glucose 98 mg/dL (74-99); Non-African American GFR(CKD) >90 (>60 ml/min/1.73 sqM); Potassium 4.3 mmol/L (3.5-5.1); Sodium 135 mmol/L (137-145)
[2021-03-14] MEDS: ENOXAPARIN 40 MG/0.4 ML SYRINGE SQ SCH (07:53)
[2021-03-14] MEDS: DOCUSATE 100 MG CAP PO SCH (07:53)
--- NOTE | 2021-03-14 10:49 | CDI ---
Documentation Clarification Form Date: 03/14/2021 10:07:45 AM From: Renata Julio RN, CCDS Admit Date: 03/14/2021 08:56:00 AM Patient Name: Antoinette Gardner Visit Number: [id number] Discharge Date: ATTENTION: The Clinical Documentation Specialists (CDI) and [facility] Coding Staff appreciate your assistance in clarifying documentation. Please respond to the clarification below the line at the bottom and electronically sign. The CDI & [facility] Coding staff will review the response and follow-up if needed. Please note: Queries are made part of the Legal Health Record. If you have any questions, please contact the author of this message via ITS. Dr. Julianne Fernandes Your patient has shortness of breath with activity pulse ox at 08:13 on 03/14/21 88 % on room air. 91 % 2/L NC. Based on this information and the findings below, is there an additional diagnosis that is clinically appropriate for this patient? History/Risk Factors: PTSD, Anxiety, Depression, Diverticulitis, Bowel Resection, Tobacco use: Smoked 1/2 pack day x18 years quit December 2020 Clinical Indicators: 35-Year-old female present for outpatient elective procedure on 03/12 she had an open repair of incarcerated incisional hernia. 03/13, she began complaining of shortness of breath. 03/13 Respiratory exam (Medicine) Breath sounds diminished at the bases. A few scattered rhonchi and crackles. Expiratory wheezing. 03/14 08:28 Vital signs: 141/85 94 18 97.7 91 % 2/L NC (08:27 88 % RA) 03/13 CXR: New airspace disease of the right lower lung zone. 03/13 surgical progress note: She has been requiring oxygen. She did drop down to 89 % on room air and is currently on 2L sating at 92 %. Her IV fluids have been discontinued. Hypoxia being managed by medical service. Treatment: Albuterol nebulizer 2.5 MG Q4H Incentive spirometer as ordered Lasix 40MG IVP X1 Monitor O2 Sat's (titrate) Is there an additional diagnosis that is clinically appropriate for this patient? [ ] Acute Hypoxic Respiratory Failure (pO2 <60 mm Hg or SpO2 <91% on room air) [ ] Acute Hypercapnic Respiratory Failure (pCO2 >50 and pH <7.35) [ ] Chronic hypoxic Respiratory Failure [ ] Acute Respiratory Distress [ ] Other Diagnosis, please specify [ ] Unable to determine (Template Last Revised: October 2020) Acute Hypoxic Respiratory Failure MTDD
--- NOTE | 2021-03-14 12:35 | CT ---
EXAMINATION TYPE: CT chest angio for PE DATE OF EXAM: 03/14/2021 COMPARISON: None HISTORY: SOB, recent hernia surgery CT DLP: 479.4 mGycm CONTRAST: CT chest with contrast and 3D reconstruction with MIP imaging is performed with IV Contrast, patient injected with 100 mL of Isovue 370. Contrast-enhanced CT of the chest was performed through the course of the pulmonary arteries with charline g and mediastinal window settings submitted. 3D reconstruction with MIP imaging was also performed. PULMONARY ARTERIES: The pulmonary arteries and their major tributaries are patent. I do not see george dence for sizable filling defect to suggest pulmonary embolic process. LUNGS: Right lower lobe atelectasis or infiltrate. Scattered groundglass infiltrates noted as well. C orrelate for underlying pneumonia. MEDIASTINUM: Thoracic aorta is of normal caliber,however, evaluation is limited given timing of the contrast bolus is in the. If there is concern for thoracic aortic pathology consider PHUC. Correlate clinically . The heart is not enlarged. No evidence for mediastinal mass. No mediastinal lymph nod es greater than 1cm. HILAR STRUCTURES: No evidence for mass. No hilar lymph nodes greater than 1 cm. UPPER ABDOMEN: No significant abnormality is seen. IMPRESSION: 1. No evidence for Pulmonary embolism at this time.
[2021-03-14] MEDS: SYMBICORT 160-4.5 MCG INHALER INHALATION SCH ×2 (13:02→20:44)
--- NOTE | 2021-03-14 13:14 | XR ---
EXAMINATION TYPE: XR chest 1V portable DATE OF EXAM: 03/14/2021 COMPARISON: 03/13/2021 HISTORY: Postoperative TECHNIQUE: Single frontal view of the chest is obtained. FINDINGS: Right lower lobe airspace disease appears similar to the prior examination with elevation of the righ t hemidiaphragm. Cardiac silhouette is unchanged. IMPRESSION: Right lower lobe airspace disease appears similar to the prior examination with elevation of the righ t hemidiaphragm.
[2021-03-14] MEDS: PIPERACILLIN-TAZOBACTAM 3.375 GM in SODIUM CHLORIDE 0.9% 100 ML IVPB SCH ×2 (13:32→21:12)
[2021-03-14] MEDS: FUROSEMIDE 10 MG/ML 4 ML VIAL IV SCH (13:32)
[2021-03-14] MEDS: HYDROcodone/APAP 5-325MG 1 EACH TAB PO PRN (13:42)
--- NOTE | 2021-03-14 14:21 | P.PN ---
Subjective Progress Note Date: 03/14/21 CHIEF COMPLAINT: Incarcerated incisional hernia HISTORY OF PRESENT ILLNESS: Patient is status post open repair of incisional hernia with mesh for an incarcerated incisional hernia. Patient reports that he r pain is controlled. She denies any nausea or vomiting. She is tolerating diet. She is having flatus. She does complain of some left lower quadrant pain where she has a small bruise. She has been requiring oxygen. Her oxygen saturation drops to about 88% even with sitting. Medicine service is following closely. They given her dose of IV Lasix yesterday she was started on nebulizer treatments. Pulmonary service has been consult at. She had a CTA of the chest that shows no evidence of pulmonary embolism. Patient is a smoker. Chest x-ray right lower lobe airspace disease appears similar to prior examination with elevation of right hemidiaphragm. Afebrile. White count has come down from 19.6-14.3 PHYSICAL EXAM: VITAL SIGNS: Reviewed. GENERAL: Well-developed in no acute distress. HEENT: No sclera icterus. Extraocular movements grossly intact. Moist buccal mucosa. Head is atraumatic, normocephalic. ABDOMEN: Soft. Nondistended. Incision sites clean dry and intact. Patient does have a small bruise in the left lower quadrant with some tenderness NEUROLOGIC: Alert and oriented. Cranial nerves II through XII grossly intact. ASSESSMENT: 1. Incarcerated incisional hernia status post open repair of incisional hernia with mesh. Postop day #2 PLAN: -Hypoxia being managed by medical service and pulmonary service. Patient had echo completed -Continue albuterol nebulizer treatment -Medicine service did start antibiotics -Continue incentive spirometer -Encouraged patient to ambulate -Continue low-fat diet -Patient is stable from surgical standpoint for discharge once cleared by medicine and pulmonary service -DVT prophylaxis Lovenox and GI prophylaxis Protonix [employer] note has been reviewed by physician. Signing provider agrees with the documented findings, assessment, and plan of care. Objective - Vital Signs Vital signs: Vital Signs Temp 97.7 F 03/14/21 08:28 Pulse 87 03/14/21 11:52 Resp 18 03/14/21 08:28 BP 141/85 03/14/21 08:28 Pulse Ox 89 L 03/14/21 10:11 Intake & Output 03/13/21 03/14/21 03/14/21 18:59 06:59 18:59 Intake Total 60 Output Total 410 Balance -410 60 Intake: Oral 60 Output: Drainage 110 Right 110 Urine 300 Other: # Voids 1 2 - Labs CBC & Chem 7: 03/14/21 06:37 03/14/21 06:37 Labs: Abnormal Lab Results - Last 24 Hours (Table) 03/13/21 03/13/21 03/13/21 Range/Units 14:30 14:30 17:00 WBC 19.6 H (3.8-10.6) k/uL Neutrophils # 14.7 H (1.3-7.7) k/uL D-Dimer (<0.60) mg/L FEU Sodium 136 L (137-145) mmol/L Carbon Dioxide 20 L (22-30) mmol/L BUN (7-17) mg/dL Urine Appearance Cloudy H (Clear) Urine Bacteria Rare H (None) /hpf Urine Mucus Rare H (None) /hpf 03/14/21 03/14/21 03/14/21 Range/Units 06:37 06:37 12:32 WBC 14.3 H (3.8-10.6) k/uL Neutrophils # 9.8 H (1.3-7.7) k/uL D-Dimer 0.88 H (<0.60) mg/L FEU Sodium 135 L (137-145) mmol/L Carbon Dioxide 20 L (22-30) mmol/L BUN 20 H (7-17) mg/dL Urine Appearance (Clear) Urine Bacteria (None) /hpf Urine Mucus (None) /hpf
--- NOTE | 2021-03-14 14:26 | P.CNPUL ---
History of Present Illness Consult date: 03/14/21 Requesting physician: Julianne Fernandes Reason for consult: dyspnea, hypoxemia Chief complaint: Shortness of breath, hypoxic respiratory failure History of present illness: This is a 35-year-old white female patient with medical history of morbid obesity, diverticulitis with history of perforated diverticula, bowel resection, colostomy and reversal of colostomy in July 2020, anxiety, depression, current smoker, who came in on 03/12/2021 for open repair of incisional hernia with Prolene mesh. Patient tolerated the procedure well. On first postoperative day patient developed shortness of breath, and required supplemental oxygen. She was noted to be hypoxic with a pulse ox of 88-89%. She was placed on supplemental oxygen at 2 L and her pulse ox is 91%, she is afebrile, slightly tachycardic with a rate of 101-123 BPM, blood pressure is within normal limits, no complaints of chest pain, no cough or congestion, chest x-ray report showed new airspace disease at the right lower lung zone, chest x-ray film has been reviewed with Dr. Epstein, and appears to have atelectasis at bilateral bases. Patient did have leukocytosis on her first postoperative day with white blood cell count of 19.6, hemoglobin of 13.9, sodium is 136, potassium is 4.5, chloride is 107, CO2 is 20, BUN 17 creatinine 0.76. LFTs were within normal limits, troponin is less than 0.012, urinalysis was cloudy in a ppearance with the rare bacteria and mucus but no clear evidence of infection. CTA chest has been ordered and is pending at this time. Patient has a congested nonproductive cough, her ISS effort is poor and she is only achieving 500 mL on incentive spirometer today. She needs encouragement to deep breathe and cough. Mid abdominal incision is clean dry and intact, patient has abdominal binder in place. She was started on antibiotics in the form of Zosyn Review of Systems All systems: negative Constitutional: Denies chills, Denies fever Eyes: denies blurred vision, denies pain Ears, nose, mouth and throat: Denies headache, Denies sore throat Cardiovascular: Denies chest pain, Denies shortness of breath Respiratory: Reports dyspnea, Denies cough Gastrointestinal: Reports abdominal pain, Denies diarrhea, Denies nausea, Denies vomiting Genitourinary: Denies dysuria, Denies hematuria Musculoskeletal: Denies myalgias Integumentary: Denies pruritus, Denies rash Neurological: Denies numbness, Denies weakness Psychiatric: Denies anxiety, Denies depression Endocrine: Denies fatigue, Denies weight change Past Medical History Past Medical History: No Reported History Additional Past Medical History / Comment(s): HX DIVERTICULITS, BOWEL RESECTION, CURRENT CONSTIPATION History of Any Multi-Drug Resistant Organisms: None Reported Past Surgical History: Bowel Resection, Section, Cholecystectomy, Tubal Ligation Additional Past Surgical History / Comment(s): 3 Sections,colostomy & reversal (Jul 2020), COLONOSCOPY Past Anesthesia/Blood Transfusion Reactions: Previous Problems w/ Anesthesia Additional Past Anesthesia/Blood Transfusion Reaction / Comment(s): PATIENT STATES SHE FLAT LINED AFTER ALL 3 C- SECTIONS, NO PROBLEM WITH OTHER SURGERY. Past Psychological History: Anxiety, Depression, PTSD Additional Psychological History / Comment(s): no rx, coping well at this time Smoking Status: Current every day smoker Past Alcohol Use History: None Reported Additional Past Alcohol Use History / Comment(s): STARTED SMOKING AT AGE 18, SMOKES 1/2 PPD. Past Drug Use History: None Reported Additional Drug Use History / Comment(s): . - Past Family History Mother History Unknown: Yes Family Medical History: Cancer, CVA/TIA Additional Family Medical History / Comment(s): Thyroid cancer, CVA. Father Family Medical History: Deep Vein Thrombosis (DVT) Additional Family Medical History / Comment(s): blood clot shoulder Medications and Allergies Home Medications Medication Instructions Recorded Confirmed Type Wheat Dextrin [Benefiber] 1 cap PO DAILY 01/05/21 03/08/21 History Allergies Allergy/AdvReac Type Severity Reaction Status Date / Time No Known Allergies Allergy Verified 03/12/21 14:23 Physical Exam Vitals: Vital Signs Temp Pulse Pulse Pulse Pulse Pulse Pulse 03/14/21 11:52 87 03/14/21 11:40 86 03/14/21 10:11 101 H 123 H 102 H 125 H 03/14/21 08:28 97.7 F 94 03/14/21 08:27 03/14/21 08:13 88 03/14/21 08:02 81 03/14/21 03:52 88 03/14/21 03:39 88 03/14/21 02:00 98.8 F 88 03/13/21 20:47 90 03/13/21 20:36 92 03/13/21 20:00 03/13/21 19:50 97.6 F 84 03/13/21 14:40 98.4 F 77 03/13/21 13:00 73 Resp BP Pulse Ox Pulse Ox Pulse Ox Pulse Ox Pulse Ox 03/14/21 11:52 03/14/21 11:40 03/14/21 10:11 92 L 93 L 89 L 85 L 03/14/21 08:28 18 141/85 91 L 03/14/21 08:27 88 L 03/14/21 08:13 03/14/21 08:02 92 L 03/14/21 03:52 03/14/21 03:39 03/14/21 02:00 18 130/83 93 L 03/13/21 20:47 03/13/21 20:36 03/13/21 20:00 18 03/13/21 19:50 18 110/74 95 03/13/21 14:40 18 116/81 93 L 03/13/21 13:00 18 96 Intake and Output 03/13/21 03/14/21 03/14/21 22:59 06:59 14:59 Intake Total 60 Output Total 340 Balance -340 60 Intake: Oral 60 Output: Drainage 40 Right 40 Urine 300 Other: # Voids 1 2 GENERAL EXAM: Alert, very pleasant, 35-year-old white female, on 2 L of oxygen pulse ox of 91%,, comfortable in no apparent distress. HEAD: Normocephalic/atraumatic. EYES: Normal reaction of pupils, equal size. Conjunctiva pink, sclera white. NOSE: Clear with pink turbinates. THROAT: No erythema or exudates. NECK: No masses, no JVD, no thyroid enlargement, no adenopathy. CHEST: No chest wall deformity. Symmetrical expansion. LUNGS: Equal air entry with diminished breath sounds at the bases, patient has a congested nonproductive cough CVS: Regular rate and rhythm, normal S1 and S2, no gallops, no murmurs, no rubs ABDOMEN: Soft, nontender. No hepatosplenomegaly, normal bowel sounds, no guarding or rigidity. Abdominal incision is clean dry and intact, TRINY drain with small amount of serosanguineous output, compress and draining. Abdominal binder is in place EXTREMITIES: No clubbing, no edema, no cyanosis, 2+ pulses and upper and lower extremities. MUSCULOSKELETAL: Muscle strength and tone normal. SPINE: No scoliosis or deformity SKIN: No rashes CENTRAL NERVOUS SYSTEM: Alert and oriented -3. No focal deficits, tone is normal in all 4 extremities. PSYCHIATRIC: Alert and oriented -3. Appropriate affect. Intact judgment and insight. Results - Laboratory Findings CBC and BMP: 03/14/21 06:37 03/14/21 06:37 Abnormal lab findings: Abnormal Labs 03/13/21 03/13/21 03/13/21 14:30 14:30 17:00 WBC 19.6 H Neutrophils # 14.7 H Sodium 136 L Carbon Dioxide 20 L BUN Urine Appearance Cloudy H Urine Bacteria Rare H Urine Mucus Rare H 03/14/21 03/14/21 06:37 06:37 WBC 14.3 H Neutrophils # 9.8 H Sodium 135 L Carbon Dioxide 20 L BUN 20 H Urine Appearance Urine Bacteria Urine Mucus - Diagnostic Findings Chest x-ray: report reviewed, image reviewed CT scan - chest: report reviewed, image reviewed Assessment and Plan Plan: Assessment: #1. Acute hypoxic respiratory failure related to postoperative atelectasis, and possible right lower lobe pneumonia. CTA chest showed no evidence of pulmonary embolism #2. Incisional hernia, status post open repair with mesh on 03/12/2021 #3. History of smoking #4. Anxiety #5. Morbid obesity #6. Previous history of perforated diverticulitis with bowel resection, colostomy and subsequent reversal in July 2020 #7. History of PTSD Plan: Continue encouraging deep breathing and coughing Chest x-rays and the CTA chest has been reviewed, showing bibasilar atelectasis, and possible right lower lobe pneumonia Patient has been started on Zosyn, will continue with the same antibiotic coverage Encourage incentive spirometry use Encourage ambulation and encourage the patient to sit up in the chair GI and DVT prophylaxis We'll continue to follow I performed a history & physical examination of the patient and discussed their management with my nurse practitioner, Teagan Rodriguez. I reviewed the nurse pr actitioner's note and agree with the documented findings and plan of care. Lung sounds are positive for diminished breath sounds.. The findings and the impression was discussed with the patient. I attest to the documentation by the nurse practitioner. Time with Patient: Greater than 30
--- NOTE | 2021-03-14 14:32 | PN ---
PROGRESS NOTE DATE OF SERVICE: 03/14/2021 This 35-year-old woman was admitted after surgery, had significant hypoxia. The patient received a dose of Lasix yesterday but today the patient's still SEEING significant hypoxia with ( ) dependent 88% on room air. The CTA showed no evidence of pulmonary embolism, but the patient had significant interstitial lesions also at this time. Dr. Golden is being consulted. PAST MEDICAL HISTORY: Reviewed. REVIEW OF SYSTEMS: Cardiovascular system: No angina. Respiratory: As mentioned earlier. no dysuria. GI: As mentioned. Nervous system: No numbness, weakness. CURRENT MEDICATIONS: [place], Ventolin, Colace, Lovenox, Dilaudid, Narcan, Zofran, Protonix, albuterol doses reviewed. PHYSICAL EXAMINATION: Patient is alert, oriented x3. Pulse is 101, blood pressure is 141/85, respiration 18, temperature 97.7, pulse ox is 85 percent on room air, which is considered normal. HEENT: Conjunctivae normal. NECK: No JVD. CARDIOVASCULAR: S1, S2 muffled. RESPIRATORY SYSTEM: Breath sounds diminished at the bases, scattered rhonchi. ABDOMEN: Soft status post surgery. LEGS: Are no edema. NERVOUS SYSTEM: No focal deficits. LABS: WBC 14.3, D-dimer is 0.88. ASSESSMENT: 1. Status post open repair of incisional hernia with mesh. 2. Shortness of breath, possibly fluid overload and congestive heart failure acute exacerbation with ejection fraction unknown. 3. Possible acute right lower pneumonia. 4. Rule out asthmatic bronchitis. 5. Acute hypoxic respiratory failure secondary to above. 6. History of diverticulitis, bowel resection. 7. History of constipation. 8. History of anxiety and depression, PTSD. 9. History of nicotine dependence. 10.Obesity with body mass index of 44.6. 11.FULL CODE. RECOMMENDATIONS AND DISCUSSION: Continue current management and treatment otherwise, at this time, I would recommend increase the dose of Lasix and consult Dr. Golden. Continue the bronchodilators, otherwise I would also recommend a 2D echo with Doppler to complete cardiac workup also. Right lower lobe aspiration was also suspected. Continue with current medications. I would also recommend empiric antibiotics also at this point. Prognosis guarded. Further recommendations to follow. MMODL / IJN: [id number] /
[2021-03-15] MEDS: ALBUTEROL NEBULIZED 2.5 MG/3 ML INHALATION SCH ×4 (01:08→12:48)
[2021-03-15] MEDS: FUROSEMIDE 10 MG/ML 4 ML VIAL IV SCH ×2 (01:23→11:06)
[2021-03-15 05:46] LABS: Basophils # (A) 0.1 k/uL (0-0.2); Basophils % (A) 1 %; Eosinophils # (A) 0.7 k/uL (0-0.7); Eosinophils % (A) 5 %; HCT 39.2 % (34.0-46.0); HGB 13.6 gm/dL (11.4-16.0); Lymphocytes # (A) 2.2 k/uL (1.0-4.8); Lymphocytes % (A) 16 %; MCH 32.6 pg (25.0-35.0); MCHC 34.6 g/dL (31.0-37.0); MCV 94.2 fL (80.0-100.0); Mean Platelet Volume 7.1; Monocytes # (A) 0.8 k/uL (0-1.0); Monocytes % (A) 5 %; Neutrophils # (A) 10.1 k/uL (1.3-7.7); Neutrophils % (A) 72 %; Platelet Count 324 k/uL (150-450); RBC 4.16 m/uL (3.80-5.40); RDW 13.6 % (11.5-15.5)
[2021-03-15 06:03] LABS: African American GFR (CKD) >90 (>60 ml/min/1.73 sqM); Anion Gap 10 mmol/L; Blood Urea Nitrogen 17 mg/dL (7-17); Calcium 9.2 mg/dL (8.4-10.2); Carbon Dioxide 25 mmol/L (22-30); Chloride 103 mmol/L (98-107); Glucose 109 mg/dL (74-99); Non-African American GFR(CKD) >90 (>60 ml/min/1.73 sqM); Sodium 138 mmol/L (137-145)
[2021-03-15 06:11] LABS: Potassium 4.2 mmol/L (3.5-5.1)
[2021-03-15] MEDS: PIPERACILLIN-TAZOBACTAM 3.375 GM in SODIUM CHLORIDE 0.9% 100 ML IVPB SCH (06:18)
[2021-03-15] MEDS: PANTOPRAZOLE 40 MG TABLET PO SCH (06:20)
[2021-03-15] MEDS: HYDROcodone/APAP 5-325MG 1 EACH TAB PO PRN (06:23)
[2021-03-15] MEDS: DOCUSATE 100 MG CAP PO SCH (07:45)
[2021-03-15] MEDS: ENOXAPARIN 40 MG/0.4 ML SYRINGE SQ SCH (07:45)
[2021-03-15 07:51] VITALS: RESP 20
[2021-03-15] MEDS: SYMBICORT 160-4.5 MCG INHALER INHALATION SCH (08:37)
[2021-03-15 09:30] VITALS: BP 113/66; PULSE 98; TEMP 97.7
--- NOTE | 2021-03-15 10:57 | P.PN ---
Subjective Progress Note Date: 03/15/21 Principal diagnosis: Shortness of breath, hypoxia This is a 35-year-old white female patient with medical history of morbid obesity, diverticulitis with history of perforated diverticula, bowel resection, colostomy and reversal of colostomy in July 2020, anxiety, depression, current smoker, who came in on 03/12/2021 for open repair of incisional hernia with Prolene mesh. Patient tolerated the procedure well. On first postoperative day patient developed shortness of breath, and required supplemental oxygen. She was noted to be hypoxic with a pulse ox of 88-89%. She was placed on supplemental oxygen at 2 L and her pulse ox is 91%, she is afebrile, slightly tachycardic with a rate of 101-123 BPM, blood pressure is within normal limits, no complaints of chest pain, no cough or congestion, chest x-ray report showed new airspace disease at the right lower lung zone, chest x-ray film has been reviewed with Dr. Epstein, and appears to have atelectasis at bilateral bases. Patient did have leukocytosis on her first postoperative day with white blood cell count of 19.6, hemoglobin of 13.9, sodium is 136, potassium is 4.5, chloride is 107, CO2 is 20, BUN 17 creatinine 0.76. LFTs were within normal limits, troponin is less than 0.012, urinalysis was cloudy in ap pearance with the rare bacteria and mucus but no clear evidence of infection. CTA chest has been ordered and is pending at this time. Patient has a congested nonproductive cough, her ISS effort is poor and she is only achieving 500 mL on incentive spirometer today. She needs encouragement to deep breathe and cough. Mid abdominal incision is clean dry and intact, patient has abdominal binder in place. She was started on antibiotics in the form of Zosyn On 03/15/2021 patient seen in follow-up on pediatric floor, his postoperative day 3, today she is sitting up in the recliner, but then room air, with a pulse ox of 92-95%, breathing comfortably, looking much more comfortable on today's ex am, lung sounds are diminished, no wheezing, occasional cough, no chest discomfort. He is afebrile, she continues on Zosyn for empiric antibiotic coverage. CTA chest showed no evidence of pulmonary embolism, chest x-ray showed a right lower lobe airspace disease, likely related to atelectasis. To day's labs have been reviewed, white blood cell, is trending down, 14.0 on today's labs, hemoglobin is 13.6, electrolytes and renal profile are unremarkable, pro-calcitonin level was negative at 0.11 suggesting absence of bacterial infection including pneumonia. Objective - Vital Signs Vital signs: Vital Signs Temp 97.7 F 03/15/21 08:55 Pulse 98 03/15/21 08:55 Resp 20 03/15/21 08:55 BP 113/66 03/15/21 08:55 Pulse Ox 92 L 03/15/21 08:55 Intake & Output 03/14/21 03/15/21 03/15/21 18:59 06:59 18:59 Intake Total 640 Output Total 20 10 Balance 620 -10 Intake: Intake, IV Titration 100 Amount Piperacillin-Tazobactam 3 100 .375 gm In Sodium Chloride 0.9% 100 ml @ 25 mls/hr IVPB Q8H [facility] Rx#: [id number] Oral 540 Output: Drainage 20 10 Right 20 10 Other: Voiding Method Toilet # Voids 4 1 - Exam GENERAL EXAM: Alert, very pleasant, 35-year-old white female, on room air, with pulse ox of 92-95%, comfortable in no apparent distress. HEAD: Normocephalic/atraumatic. EYES: Normal reaction of pupils, equal size. Conjunctiva pink, sclera white. NOSE: Clear with pink turbinates. THROAT: No erythema or exudates. NECK: No masses, no JVD, no thyroid enlargement, no adenopathy. CHEST: No chest wall deformity. Symmetrical expansion. LUNGS: Equal air entry with diminished breath sounds at the bases, patient has a congested nonproductive cough CVS: Regular rate and rhythm, normal S1 and S2, no gallops, no murmurs, no rubs ABDOMEN: Soft, nontender. No hepatosplenomegaly, normal bowel sounds, no guarding or rigidity. Abdominal incision is clean dry and intact, TRINY drain with small amount of serosanguineous output, compress and draining. Abdominal binder is in place EXTREMITIES: No clubbing, no edema, no cyanosis, 2+ pulses and upper and lower extremities. MUSCULOSKELETAL: Muscle strength and tone normal. SPINE: No scoliosis or deformity SKIN: No rashes CENTRAL NERVOUS SYSTEM: Alert and oriented -3. No focal deficits, tone is normal in all 4 extremities. PSYCHIATRIC: Alert and oriented -3. Appropriate affect. Intact judgment and insight. - Labs CBC & Chem 7: 03/15/21 05:28 03/15/21 05:28 Labs: Abnormal Lab Results - Last 24 Hours (Table) 03/14/21 03/14/21 03/15/21 Range/Units 06:37 12:32 05:28 WBC 14.0 H (3.8-10.6) k/uL Neutrophils # 10.1 H (1.3-7.7) k/uL D-Dimer 0.88 H (<0.60) mg/L FEU Glucose (74-99) mg/dL Procalcitonin 0.11 H (0.02-0.09) ng/mL 03/15/21 Range/Units 05:28 WBC (3.8-10.6) k/uL Neutrophils # (1.3-7.7) k/uL D-Dimer (<0.60) mg/L FEU Glucose 109 H (74-99) mg/dL Procalcitonin (0.02-0.09) ng/mL Assessment and Plan Plan: Assessment: #1. Acute hypoxic respiratory failure related to postoperative atelectasis, and possible right lower lobe pneumonia. CTA chest showed no evidence of pulmonary embolism. Pro-calcitonin level was low at 0.11, doubt possibility of pneumonia, this likely this related to postoperative atelectasis, nevertheless patient has been treated with empiric antibiotics in the form of Zosyn #2. Incisional hernia, status post open repair with mesh on 03/12/2021 #3. History of smoking #4. Anxiety #5. Morbid obesity #6. Previous history of perforated diverticulitis with bowel resection, colostomy and subsequent reversal in July 2020 #7. History of PTSD Plan: Patient is on room air today Breathing comfortably Pro-calcitonin level is negative, antibiotics could be discontinued, doubt pos sibility of pneumonia Shortness of breath and hypoxia likely related to postoperative atelectasis Clinically improving She could be considered for discharge home from pulmonary perspective Continue encouraging deep breathing and coughing Encourage ambulation and encourage the patient to sit up in the chair I performed a history & physical examination of the patient and discussed their management with my nurse practitioner, Teagan Rodriguez. I reviewed the nurse practitioner's note and agree with the documented findings and plan of care. Lung sounds are positive for diminished breath sounds.. The findings and the impression was discussed with the patient. I attest to the documentation by the nurse practitioner. Time with Patient: Less than 30
--- NOTE | 2021-03-15 11:43 | XR ---
EXAMINATION TYPE: XR chest 1V portable DATE OF EXAM: 03/15/2021 COMPARISON: 03/14/2021 HISTORY: Heart failure TECHNIQUE: Single frontal view of the chest is obtained. FINDINGS: The previously noted right basilar airspace disease is not seen on this examination. There is no focal air space opacity, pleural effusion, or pneumothorax seen. The cardiac silhouette size is within normal limits. The osseous structures are intact. IMPRESSION: No acute process.
--- NOTE | 2021-03-15 13:48 | P.DS ---
Providers Date of admission: 03/14/21 08:56 Expected date of discharge: 03/15/21 Attending physician: Jez Harrington Consults: 03/12/21 11:33 Consult Physician Routine Consulting Provider: Noemi López Consult Reason/Comments: Medical management Do you want consulting provider notified?: Yes 03/14/21 11:44 Consult Physician Routine Consulting Provider: Isabella Golden Consult Reason/Comments: SOB decreased SPO2. Do you want consulting provider notified?: Yes Primary care physician: Stated None Hospital Course: Discharge diagnosis 1. Incarcerated incisional hernia status post open repair of incisional hernia with mesh 2. Postoperative atelectasis 3. Acute hypoxic respiratory failure likely related to postoperative atelectasis concerns for possible right lower lobe pneumonia. Hospital course This is a 35-year-old female with previous history of perforated diverticulitis with colostomy and subsequent reversal colostomy. She developed a incisional hernia that is incarcerated. She is status post open repair of incisional hernia with mesh. Patient's pain is controlled. She is tolerating diet. She is having flatus and BM. She has been up and ambulating. She is currently on room air. She was evaluated by pulmonary service and medical service during this admission. They have cleared her for discharge. She is afebrile. Her white count is trending down. She is stable for discharge. Please refer to chart for any further details. Physician Sign Writer Hand note has been reviewed by physician. Signing provider agrees with the documented findings, assessment, and plan of care. Patient Condition at Discharge: Stable Plan - Discharge Summary Discharge Rx Participant: No New Discharge Prescriptions: New Amoxic-Pot Clav 875-125Mg [Augmentin 875-125] 1 tab PO Q12HR 7 Days #14 tab Docusate [Colace] 100 mg PO BID #30 capsule HYDROcodone/APAP 5-325MG [Warren 5-325] 1 tab PO Q6HR PRN 3 Days #12 tab PRN Reason: Pain Continue Wheat Dextrin [Benefiber] 1 cap PO DAILY Discharge Medication List Wheat Dextrin [Benefiber] 1 cap PO DAILY 01/05/21 [History] Amoxic-Pot Clav 875-125Mg [Augmentin 875-125] 1 tab PO Q12HR 7 Days #14 tab 03/15/21 [Rx] Docusate [Colace] 100 mg PO BID #30 capsule 03/15/21 [Rx] HYDROcodone/APAP 5-325MG [Warren 5-325] 1 tab PO Q6HR PRN 3 Days #12 tab 03/15/21 [Rx] Follow up Appointment(s)/Referral(s): Isabella Golden MD [STAFF PHYSICIAN] - 03/23/21 1:15 pm Chris Odell DO [REFERRING] - 1-2 Days (Dr Chou's office was contacted and is not taking new Medicaid patients. Dr Odell's office is taking new patients, however they require the patient to call the office themselves. ) Jez Harrington MD [STAFF PHYSICIAN] - 03/20/21 3:10 pm Patient Instructions/Handouts: *Surgery [facility] - (Anesthesia) Discharge Inst ructions Outpatient Surgery, Ventral Hernia Repair (DC) Activity/Diet/Wound Care/Special Instructions: No driving while taking Warren No lifting over 10 pounds You may shower. No soaking or tub baths for 2 weeks Very light activity until you are reevaluated at your follow up appointment with your surgeon Keep a log of TRINY drain output and bring with you to your follow-up appointment Milk/strip drains 2-3 times a day Discharge Disposition: HOME SELF-CARE
--- NOTE | 2021-03-15 17:00 | ECHOF ---
Referral Reason:chf MEASUREMENTS -------- HEIGHT: 157.5 cm WEIGHT: 109.8 kg BP: IVSd: 1.1 cm (0.6 - 1.1) LVIDd: 4.8 cm (3.9 - 5.3) LVPWd: 1.0 cm (0.6 - 1.1) EDV(Teich): 106 ml IVSs: 1.5 cm LVIDs: 3.3 cm LVPWs: 1.3 cm %IVS Thck: 46 % ESV(Teich): 44 ml EF(Teich): 58 % %FS: 31 % SV(Teich): 61 ml LA Diam: 2.9 cm (2.7 - 3.8) RVIDd: 3.2 cm (< 3.3) Ao Diam: 3.1 cm (2.0 - 3.7) AV Cusp: 2.1 cm (1.5 - 2.6) EPSS: 0.3 cm MV E Lorenzo: 0.47 m/s MV DecT: 259 ms MV Dec Chilton: 1.8 m/s MV A Lorenzo: 0.89 m/s MV E/A Ratio: 0.53 MV PHT: 75 ms AV Vmax: 1.34 m/s AV maxP.23 mmHg TR Vmax: 1.40 m/s TR maxP.80 mmHg RAP: 5.00 mmHg RVSP: 12.80 mmHg MV EF SLOPE: 83.72 mm/s (70 - 150) MV EXCURSION: 22.56 mm (> 18.000) FINDINGS -------- Sinus rhythm. This was a technically good study. LV size, wall thickness and systolic function are normal, with an EF greater than 55%. The left constantino tricular size is normal. The right ventricle is normal in size. The left atrial size is normal. The right atrial size is normal. The aortic valve is trileaflet, and appears structurally normal. No aortic stenosis or regurgitation. Mild mitral regurgitation is present. Mild tricuspid regurgitation present. Right ventricular systolic pressure is normal at < 35 mmHg. The pulmonic valve was not well visualized. There is no pericardial effusion. CONCLUSIONS -------- 1. LV size, wall thickness and systolic function are normal, with an EF greater than 55%. 2. The left ventricular size is normal. 3. The right ventricle is normal in size. 4. The left atrial size is normal. 5. The right atrial size is normal. 6. The aortic valve is trileaflet, and appears structurally normal. No aortic stenosis or regurgitati on. 7. Mild mitral regurgitation is present. 8. Mild tricuspid regurgitation present. 9. The pulmonic valve was not well visualized. 10. There is no pericardial effusion. DRY CELL SEALER: Stephy Banegas RDCS
--- NOTE | 2021-03-15 17:55 | PN ---
PROGRESS NOTE DATE OF SERVICE: 03/15/2021 This 35-year-old woman was admitted after surgery also had some fluid overload and as well as pneumonia. The patient given antibiotics, improved significantly. No chest pain. No palpitations. No fever. EXAM: Alert and oriented times three. Pulse is 98, blood pressure 143/62, respiration 20, temperature 97.7, pulse ox 93 percent on room air. HEENT: Conjunctivae normal. NECK: No jugular venous distention. CARDIOVASCULAR SYSTEM: S1, S2 muffled. RESPIRATORY SYSTEM: Breath sounds diminished at the bases. A few rhonchi. ABDOMEN soft, status post surgery. LEGS: No edema. No swelling. LABS: WBC 14, hemoglobin 13.8. Sodium 130, potassium 4.2. Covid 19 is negative. ASSESSMENT: 1. Status post open repair of incisional hernia with mesh. 2. Shortness of breath, possibly fluid overload, as well as congestive heart failure acute exacerbation. 3. Ejection fraction unknown. 4. Acute right lower lobe pneumonia, possibly gram-negative. 5. Possible asthmatic bronchitis. 6. Acute hypoxic respiratory failure secondary to above. 7. History of diverticulitis, bowel resection. 8. History of constipation. 9. History of anxiety, depression, PTSD. 10.History of nicotine dependence. 11.Obesity with body mass index of 44.6. 12.FULL CODE. RECOMMENDATIONS AND DISCUSSION: Continue current medications, continue symptomatic treatment. Complete a short course of antibiotics, outpatient bronchodilators. Closely follow with primary physician. Further recommendations to follow. MMODL / IJN: [id number] /
== END 2021-03-15 14:32 | disposition home or self-care (01) | DRG 987 ==
LOC: OR 07:54 → 6PED 13:20 → OR 21:15 → 6PED 21:25 → OBSVTOIN 03-14 08:56
PROVIDERS: ADMIT Surgery; ATTEND Surgery
PROC: 0WUF0JZ Supplement Abdominal Wall with Synthetic Substitute, Open Approach (ICD-10-PCS; principal; 2021-03-12 09:45)
DX: J18.9 Pneumonia, unspecified organism (principal); J96.01 Acute respiratory failure with hypoxia; J98.11 Atelectasis; K43.0 Incisional hernia with obstruction, without gangrene; Z68.41 Body mass index [BMI] 40.0-44.9, adult; J45.909 Unspecified asthma, uncomplicated; E66.01 Morbid (severe) obesity due to excess calories; F43.10 Post-traumatic stress disorder, unspecified; F32.9 Major depressive disorder, single episode, unspecified; E87.70 Fluid overload, unspecified; K59.00 Constipation, unspecified; F17.210 Nicotine dependence, cigarettes, uncomplicated; Z90.49 Acquired absence of other specified parts of digestive tract; Z98.51 Tubal ligation status; Z20.822 Contact with and (suspected) exposure to COVID-19; Z80.8 Family history of malignant neoplasm of other organs or systems; Z82.3 Family history of stroke; Z98.890 Other specified postprocedural states; Z87.19 Personal history of other diseases of the digestive system; Z83.2 Family history of diseases of the blood and blood-forming organs and certain disorders involving the immune mechanism
CPT/HCPCS: 64999; 71045; 71275; 80048; 80053; 81001; 81025; 84145; 84484; 85025; 85379; 86850; 86900; 86901; 93005; 93306; 94640; 94760

== ENCOUNTER 2023-09-14 21:56 | Inpatient (IN) | payer BC, OTHER ==
--- NOTE | 2023-09-14 22:39 | ED ---
Abdominal Pain HPI - General Source: patient Mode of arrival: ambulatory Limitations: no limitations <Lauro Huff - Last Filed: 09/14/23 22:40> <Nathaniel Meadows - Last Filed: 09/23/23 08:55> - General Chief Complaint: Abdominal Pain Stated Complaint: Abd pain, vomiting - History of Present Illness Initial Comments: 38-year-old female with past medical history significant for status post cholecystectomy and prior ostomy with reversal presenting to the ED with a chief complaint of abdominal pain. Patient states 3 days ago onset of nausea and abdominal pain with associated nausea. Since onset, reports pain has worsened in severity. (Lauro Huff) - Related Data Previous Rx's Medication Instructions Recorded Levofloxacin [Levaquin] 500 mg PO DAILY 3 Days #3 tab 09/18/23 Ondansetron [Zofran] 4 mg PO Q8HR PRN #12 tab 09/18/23 Pantoprazole [Protonix] 40 mg PO DAILY 7 Days #7 tab 09/18/23 metroNIDAZOLE [Flagyl] 500 mg PO TID 3 Days #9 tab 09/18/23 Allergies Allergy/AdvReac Type Severity Reaction Status Date / Time No Known Allergies Allergy Verified 09/15/23 07:34 Review of Systems ROS Other: All systems not noted in ROS Statement are negative. <Lauro Huff - Last Filed: 09/14/23 22:40> ROS Other: All systems not noted in ROS Statement are negative. Constitutional: Denies: fever, chills Respiratory: Denies: cough, dyspnea Cardiovascular: Denies: chest pain, palpitations Gastrointestinal: Reports: abdominal pain, nausea. Denies: vomiting, diarrhea, hematemesis, melena, hematochezia Genitourinary: Denies: dysuria, frequency, hematuria Musculoskeletal: Denies: back pain Skin: Denies: rash Neurological: Denies: headache <Nathaniel Meadows - Last Filed: 09/23/23 08:55> ROS Statement: Those systems with pertinent positive or pertinent negative responses have been documented in the HPI. Past Medical History Past Medical History: No Reported History Additional Past Medical History / Comment(s): HX DIVERTICULITS, BOWEL RESECTION, CURRENT CONSTIPATION History of Any Multi-Drug Resistant Organisms: None Reported Past Surgical History: Bowel Resection, Section, Cholecystectomy, Tubal Ligation Additional Past Surgical History / Comment(s): 3 Sections,colostomy & reversal (Jul 2020), COLONOSCOPY Past Anesthesia/Blood Transfusion Reactions: Previous Problems w/ Anesthesia Additional Past Anesthesia/Blood Transfusion Reaction / Comment(s): PATIENT STATES SHE FLAT LINED AFTER ALL 3 C- SECTIONS, NO PROBLEM WITH OTHER SURGERY. Past Psychological History: Anxiety, Depression, PTSD Smoking Status: Current every day smoker Past Alcohol Use History: None Reported Past Drug Use History: None Reported - Past Family History Mother History Unknown: Yes Family Medical History: Cancer, CVA/TIA Additional Family Medical History / Comment(s): Thyroid cancer, CVA. Father Family Medical History: Deep Vein Thrombosis (DVT) Additional Family Medical History / Comment(s): blood clot shoulder <Lauro Huff - Last Filed: 09/14/23 22:40> General Exam Limitations: no limitations <Lauro Huff - Last Filed: 09/14/23 22:40> Limitations: no limitations General appearance: alert Head exam: Present: atraumatic, normocephalic Eye exam: Present: normal appearance. Absent: scleral icterus, conjunctival injection Neck exam: Present: normal inspection Respiratory exam: Present: normal lung sounds bilaterally. Absent: respiratory distress, wheezes, rales, rhonchi, stridor Cardiovascular Exam: Present: regular rate, normal rhythm, normal heart sounds. Absent: systolic murmur, diastolic murmur, rubs, gallop GI/Abdominal exam: Present: soft, tenderness, guarding. Absent: distended, rebound, rigid, mass, pulsatile mass, hernia Extremities exam: Present: normal inspection, normal capillary refill. Absent: pedal edema, calf tenderness Back exam: Present: normal inspection. Absent: CVA tenderness (R), CVA tenderness (L) Neurological exam: Present: alert Skin exam: Present: warm, dry, intact, normal color. Absent: rash <Nathaniel Meadows - Last Filed: 09/23/23 08:55> - General Exam Comments Initial Comments: Visual Physical Exam Vital signs reviewed General: Well-appearing, nontoxic, no acute distress. Head: Normocephalic, atraumatic Eyes: PERRLA, EOMI ENT: Airway patent Chest: Nonlabored breathing Skin: No visual rash, normal skin tone Neuro: Alert and oriented 3 Musculoskeletal: No gross abnormalities (Lauro Huff) Course Vital Signs 09/14/23 09/15/23 09/15/23 22:21 03:58 06:09 Temperature 98.1 F Pulse Rate 109 H 94 88 Respiratory 20 18 16 Rate Blood Pressure 131/87 129/98 143/81 O2 Sat by Pulse 99 97 99 Oximetry 09/15/23 09/15/23 07:41 10:45 Temperature Pulse Rate 90 74 Respiratory 18 18 Rate Blood Pressure 140/80 134/88 O2 Sat by Pulse 95 97 Oximetry Medical Decision Making <Lauro Huff - Last Filed: 09/14/23 22:40> - Lab Data Result diagrams: 09/17/23 08:36 09/17/23 08:36 <Nathaniel Meadows - Last Filed: 09/23/23 08:55> - Medical Decision Making Quicknote portion performed. Signed Lauro Huff PA-C (Lauro Huff) This patient is 38-year-old woman presenting with generalized abdominal pain, nausea. The patient's continues to have intractable symptoms. Patient's CT shows probable enteritis. Case discussed with internal medicine to have admissi on for symptom control as well as surgical consultation. Was pt. sent in by a medical professional or institution (CHARLETTE Mcallister, GUEST SERVICES AGENT, urgent care, hospital, or halfway...) When possible be specific @ -[No] Did you speak to anyone other than the patient for history (EMS, parent, family, police, friend...)? What history was obtained from this source @ -[No] Did you review nursing and triage notes (agree or disagree)? Why? @ -[I reviewed and agree with nursing and triage notes] Were old charts reviewed (outside hosp., previous admission, EMS record, old EKG, old radiological studies, urgent care reports/EKG's, halfway records)? Report findings @ -[No old charts were reviewed] Differential Diagnosis (chest pain, altered mental status, abdominal pain women, abdominal pain men, vaginal bleeding, weakness, fever, dyspnea, syncope, headache, dizziness, GI bleed, back pain, seizure, CVA, palpatations, mental health, musculoskeletal)? @ -[MDM abdominal pain women EKG interpreted by me (3pts min.). @ -[As above] X-rays interpreted by me (1pt min.). @ -[None done] CT interpreted by me (1pt min.). @ -[Computed tomography scan as above U/S interpreted by me (1pt. min.). @ -[None done] What testing was considered but not performed or refused? (CT, X-rays, U/S, labs)? Why? @ -[None] What meds were considered but not given or refused? Why? @ -[None] Did you discuss the management of the patient with other professionals (professionals i.e. DrAkosua, PA, GUEST SERVICES AGENT, lab, RT, psych nurse, social worker aide, pebble mill operator, teacher, chief administrative officer, case briefer)? Give summary @ -[No] Was smoking cessation discussed for >3mins.? @ -[No] Was critical care preformed (if so, how long)? @ -[No] Were there social determinants of health that impacted care today? How? (Homelessness, low income, unemployed, alcoholism, drug addiction, transportation, low edu. Level, literacy, decrease access to med. care, group home, rehab)? @ -[No] Was there de-escalation of care discussed even if they declined (Discuss DNR or withdrawal of care, Hospice)? DNR status @ -[No] What co-morbidities impacted this encounter? (DM, HTN, Smoking, COPD, CAD, Cancer, CVA, ARF, Chemo, Hep., AIDS, mental health diagnosis, sleep apnea, morbid obesity)? @ -[None] Was patient admitted / discharged? Hospital course, mention meds given and route, prescriptions, significant lab abnormalities, going to OR and other pertinent info. @ -[Patient is 38-year-old woman here to have evaluation for abdominal pain. The patient found to have enteritis evident on computed tomography scan. She continues to have significant symptoms despite medical therapy here, therefore will be admitted for symptom control and to have surgical consultation. Undiagnosed new problem with uncertain prognosis? @ -[No] Drug Therapy requiring intensive monitoring for toxicity (Heparin, Nitro, Insulin, Cardizem)? @ -[No] Were any procedures done? @ -[No] Diagnosis/symptom? @ -[Acute enteritis Intractable abdominal pain and vomiting Acute, or Chronic, or Acute on Chronic? @ -[Acute Uncomplicated (without systemic symptoms) or Complicated (systemic symptoms)? @ -[Uncomplicated Side effects of treatment? @ -[No] Exacerbation, Progression, or Severe Exacerbation? @ -[No] Poses a threat to life or bodily function? How? (Chest pain, [place], [place], pneumonia, PE, COPD, DKA, ARF, appy, cholecystitis, CVA, Diverticulitis, Homicidal, Suicidal, threat to staff... and all critical care pts) @ -[Low likelihood at this point (Nathaniel Meadows) - Lab Data Lab Results 09/15/23 09/15/23 09/15/23 Range/Units 00:08 00:08 00:08 WBC 13.6 H (3.8-10.6) k/uL RBC 5.21 (3.80-5.40) m/uL Hgb 16.3 H (11.4-16.0) gm/dL Hct 48.3 H (34.0-46.0) % MCV 92.6 (80.0-100.0) fL MCH 31.3 (25.0-35.0) pg MCHC 33.8 (31.0-37.0) g/dL RDW 14.1 (11.5-15.5) % Plt Count 293 (150-450) k/uL MPV 7.5 Neutrophils % 68 % Lymphocytes % 24 % Monocytes % 3 % Eosinophils % 1 % Basophils % 1 % Neutrophils # 9.3 H (1.3-7.7) k/uL Lymphocytes # 3.2 (1.0-4.8) k/uL Monocytes # 0.5 (0-1.0) k/uL Eosinophils # 0.1 (0-0.7) k/uL Basophils # 0.1 (0-0.2) k/uL PT 10.9 (10.0-12.5) sec INR 1.0 (<1.2) APTT 25.6 (22.0-30.0) sec Sodium (137-145) mmol/L Potassium (3.5-5.1) mmol/L Chloride (98-107) mmol/L Carbon Dioxide (22-30) mmol/L Anion Gap mmol/L BUN (7-17) mg/dL Creatinine (0.52-1.04) mg/dL Est GFR (CKD-EPI)AfAm (>60 ml/min/1.73 sqM) Est GFR (CKD-EPI)NonAf (>60 ml/min/1.73 sqM) Glucose (74-99) mg/dL Calcium (8.4-10.2) mg/dL Total Bilirubin (0.2-1.3) mg/dL AST (14-36) U/L ALT (4-34) U/L Alkaline Phosphatase (38-126) U/L Troponin I (0.000-0.034) ng/mL Total Protein (6.3-8.2) g/dL Albumin (3.5-5.0) g/dL Amylase (30-110) U/L Lipase (23-300) U/L Urine Color Light Yellow Urine Appearance Clear (Clear) Urine pH 6.0 (5.0-8.0) Ur Specific Mckinney >1.050 H (1.001-1.035) Urine Protein Trace H (Negative) Urine Glucose (UA) Negative (Negative) Urine Ketones Negative (Negative) Urine Blood Trace H (Negative) Urine Nitrite Negative (Negative) Urine Bilirubin Negative (Negative) Urine Urobilinogen <2.0 (<2.0) mg/dL Ur Leukocyte Esterase Negative (Negative) Urine RBC 4 (0-5) /hpf Urine WBC 2 (0-5) /hpf Ur Squamous Epith Cells 10 H (0-4) /hpf Urine Mucus Rare H (None) /hpf Urine HCG, Qual (Not Detectd) Influenza Type A (PCR) (Not Detectd) Influenza Type B (PCR) (Not Detectd) RSV (PCR) (Not Detectd) SARS-CoV-2 (PCR) (Not Detectd) 09/15/23 09/15/23 09/15/23 Range/Units 00:08 00:08 00:08 WBC (3.8-10.6) k/uL RBC (3.80-5.40) m/uL Hgb (11.4-16.0) gm/dL Hct (34.0-46.0) % MCV (80.0-100.0) fL MCH (25.0-35.0) pg MCHC (31.0-37.0) g/dL RDW (11.5-15.5) % Plt Count (150-450) k/uL MPV Neutrophils % % Lymphocytes % % Monocytes % % Eosinophils % % Basophils % % Neutrophils # (1.3-7.7) k/uL Lymphocytes # (1.0-4.8) k/uL Monocytes # (0-1.0) k/uL Eosinophils # (0-0.7) k/uL Basophils # (0-0.2) k/uL PT (10.0-12.5) sec INR (<1.2) APTT (22.0-30.0) sec Sodium 137 (137-145) mmol/L Potassium 4.4 (3.5-5.1) mmol/L Chloride 102 (98-107) mmol/L Carbon Dioxide 22 (22-30) mmol/L Anion Gap 13 mmol/L BUN 11 (7-17) mg/dL Creatinine 0.87 (0.52-1.04) mg/dL Est GFR (CKD-EPI)AfAm >90 (>60 ml/min/1.73 sqM) Est GFR (CKD-EPI)NonAf 85 (>60 ml/min/1.73 sqM) Glucose 134 H (74-99) mg/dL Calcium 9.5 (8.4-10.2) mg/dL Total Bilirubin 0.6 (0.2-1.3) mg/dL AST 31 (14-36) U/L ALT 33 (4-34) U/L Alkaline Phosphatase 90 (38-126) U/L Troponin I <0.012 (0.000-0.034) ng/mL Total Protein 8.0 (6.3-8.2) g/dL Albumin 4.4 (3.5-5.0) g/dL Amylase 99 (30-110) U/L Lipase 43 (23-300) U/L Urine Color Urine Appearance (Clear) Urine pH (5.0-8.0) Ur Specific Mckinney (1.001-1.035) Urine Protein (Negative) Urine Glucose (UA) (Negative) Urine Ketones (Negative) Urine Blood (Negative) Urine Nitrite (Negative) Urine Bilirubin (Negative) Urine Urobilinogen (<2.0) mg/dL Ur Leukocyte Esterase (Negative) Urine RBC (0-5) /hpf Urine WBC (0-5) /hpf Ur Squamous Epith Cells (0-4) /hpf Urine Mucus (None) /hpf Urine HCG, Qual Not Detected (Not Detectd) Influenza Type A (PCR) (Not Detectd) Influenza Type B (PCR) (Not Detectd) RSV (PCR) (Not Detectd) SARS-CoV-2 (PCR) (Not Detectd) 09/15/23 Range/Units 00:08 WBC (3.8-10.6) k/uL RBC (3.80-5.40) m/uL Hgb (11.4-16.0) gm/dL Hct (34.0-46.0) % MCV (80.0-100.0) fL MCH (25.0-35.0) pg MCHC (31.0-37.0) g/dL RDW (11.5-15.5) % Plt Count (150-450) k/uL MPV Neutrophils % % Lymphocytes % % Monocytes % % Eosinophils % % Basophils % % Neutrophils # (1.3-7.7) k/uL Lymphocytes # (1.0-4.8) k/uL Monocytes # (0-1.0) k/uL Eosinophils # (0-0.7) k/uL Basophils # (0-0.2) k/uL PT (10.0-12.5) sec INR (<1.2) APTT (22.0-30.0) sec Sodium (137-145) mmol/L Potassium (3.5-5.1) mmol/L Chloride (98-107) mmol/L Carbon Dioxide (22-30) mmol/L Anion Gap mmol/L BUN (7-17) mg/dL Creatinine (0.52-1.04) mg/dL Est GFR (CKD-EPI)AfAm (>60 ml/min/1.73 sqM) Est GFR (CKD-EPI)NonAf (>60 ml/min/1.73 sqM) Glucose (74-99) mg/dL Calcium (8.4-10.2) mg/dL Total Bilirubin (0.2-1.3) mg/dL AST (14-36) U/L ALT (4-34) U/L Alkaline Phosphatase (38-126) U/L Troponin I (0.000-0.034) ng/mL Total Protein (6.3-8.2) g/dL Albumin (3.5-5.0) g/dL Amylase (30-110) U/L Lipase (23-300) U/L Urine Color Urine Appearance (Clear) Urine pH (5.0-8.0) Ur Specific Mckinney (1.001-1.035) Urine Protein (Negative) Urine Glucose (UA) (Negative) Urine Ketones (Negative) Urine Blood (Negative) Urine Nitrite (Negative) Urine Bilirubin (Negative) Urine Urobilinogen (<2.0) mg/dL Ur Leukocyte Esterase (Negative) Urine RBC (0-5) /hpf Urine WBC (0-5) /hpf Ur Squamous Epith Cells (0-4) /hpf Urine Mucus (None) /hpf Urine HCG, Qual (Not Detectd) Influenza Type A (PCR) Not Detected (Not Detectd) Influenza Type B (PCR) Not Detected (Not Detectd) RSV (PCR) Not Detected (Not Detectd) SARS-CoV-2 (PCR) Not Detected (Not Detectd) Disposition <Lauro Huff - Last Filed: 09/14/23 22:40> Is patient prescribed a controlled substance at d/c from ED?: No <Nathaniel Meadows - Last Filed: 09/23/23 08:55> Clinical Impression: Abdominal pain, Enteritis Disposition: ADMITTED IP TO THIS HOSP Condition: Stable
[2023-09-15 00:36] LABS: Basophils # (A) 0.1 k/uL (0-0.2); Basophils % (A) 1 %; Eosinophils # (A) 0.1 k/uL (0-0.7); Eosinophils % (A) 1 %; HCT 48.3 % (34.0-46.0); HGB 16.3 gm/dL (11.4-16.0); Lymphocytes # (A) 3.2 k/uL (1.0-4.8); Lymphocytes % (A) 24 %; MCH 31.3 pg (25.0-35.0); MCHC 33.8 g/dL (31.0-37.0); MCV 92.6 fL (80.0-100.0); Mean Platelet Volume 7.5; Monocytes # (A) 0.5 k/uL (0-1.0); Monocytes % (A) 3 %; Neutrophils # (A) 9.3 k/uL (1.3-7.7); Neutrophils % (A) 68 %; Platelet Count 293 k/uL (150-450); RBC 5.21 m/uL (3.80-5.40); RDW 14.1 % (11.5-15.5); WBC 13.6 k/uL (3.8-10.6)
[2023-09-15 00:52] LABS: ALT 33 U/L (4-34); AST 31 U/L (14-36); African American GFR (CKD) >90 (>60 ml/min/1.73 sqM); Albumin 4.4 g/dL (3.5-5.0); Alkaline Phosphatase 90 U/L (38-126); Amylase 99 U/L (30-110); Anion Gap 13 mmol/L; Blood Urea Nitrogen 11 mg/dL (7-17); Calcium 9.5 mg/dL (8.4-10.2); Carbon Dioxide 22 mmol/L (22-30); Chloride 102 mmol/L (98-107); Glucose 134 mg/dL (74-99); Lipase 43 U/L (23-300); Non-African American GFR(CKD) 85 (>60 ml/min/1.73 sqM); Potassium 4.4 mmol/L (3.5-5.1); Sodium 137 mmol/L (137-145); Total Bilirubin 0.6 mg/dL (0.2-1.3)
[2023-09-15 01:01] LABS: Partial Thromboplastin Time 25.6 sec (22.0-30.0); Prothrombin Time 10.9 sec (10.0-12.5)
--- NOTE | 2023-09-15 01:45 | CT ---
EXAM: CT Abdomen and Pelvis With Intravenous Contrast CLINICAL HISTORY: ITS.REASON CT Reason: abdominal pain TECHNIQUE: Axial computed tomography images of the abdomen and pelvis with intravenous contrast. CTDI is 31.9 mGy and DLP is 1578.5 mGy-cm. This CT exam was performed using one or more of the following dose reduction techniques: automated exposure control, adjustment of the mA and/or kV according to patient size, and/or use of iterative reconstruction technique. COMPARISON: No relevant prior studies available. FINDINGS: Lung bases: Unremarkable. No mass. No consolidation. ABDOMEN: Liver: Unremarkable. No mass. Gallbladder and bile ducts: Cholecystectomy clips. No ductal dilation. Pancreas: Unremarkable. No mass. No ductal dilation. Spleen: Unremarkable. No splenomegaly. Adrenals: Unremarkable. No mass. Kidneys and ureters: Unremarkable. No solid mass. No hydronephrosis. Stomach and bowel: Severe wall thickening of small bowel in the midabdomen, with moderate surrounding edema, consistent with high-grade enteritis. No obstruction. PELVIS: Appendix: No findings to suggest acute appendicitis. Bladder: Unremarkable. No mass. Reproductive: Tubal ligation. ABDOMEN and PELVIS: Intraperitoneal space: Unremarkable. No free air. No significant fluid collection. Bones/joints: No acute fracture. No dislocation. Soft tissues: Unremarkable. Vasculature: Unremarkable. No abdominal aortic aneurysm. Lymph nodes: Unremarkable. No enlarged lymph nodes. Other findings: Midline scar with suspected, subjacent postoperative seroma measuring approximately 4.0 x 3.7 cm. IMPRESSION: Severe wall thickening of small bowel in the midabdomen, with moderate surrounding edema, consistent with high-grade enteritis.
[2023-09-15 04:04] LABS: Appearance,Urine Clear (Clear); Bilirubin,Urine Negative (Negative); Blood,Urine Trace (Negative); Color,Urine Light Yellow; Glucose,Urine (UA) Negative (Negative); Ketones,Urine Negative (Negative); Leukocyte Esterase,Urine Negative (Negative); Mucus,Urine Rare /hpf; Nitrite,Urine Negative (Negative); Protein,Urine Trace (Negative); RBC,Urine 4 /hpf (0-5); Specific Gravity,Urine >1.050 (1.001-1.035); Squamous Epithelial Cell,Urine 10 /hpf (0-4); Urobilinogen,Urine <2.0 mg/dL (<2.0); WBC,Urine 2 /hpf (0-5)
[2023-09-15] MEDS ORDERED: SODIUM CHLORIDE 0.9% 1,000 ML IV STA (04:30)
[2023-09-15] MEDS ORDERED: MORPHINE SULFATE 4 MG/ML SYRINGE IV STA ×2 (04:30→06:32)
[2023-09-15] MEDS ORDERED: SODIUM CHLORIDE 0.9% 1,000 ML IV ONE (04:30)
[2023-09-15] MEDS ORDERED: ONDANSETRON 4 MG/2 ML VIAL IVP STA (04:30)
[2023-09-15] MEDS ORDERED: ACETAMINOPHEN TAB 325 MG TAB PO PRN (07:47)
[2023-09-15] MEDS ORDERED: NALOXONE 0.4 MG/ML 1 ML VIAL IV PRN (07:47)
[2023-09-15] MEDS ORDERED: MORPHINE SULFATE 4 MG/ML SYRINGE IV PRN (07:47)
[2023-09-15] MEDS ORDERED: ONDANSETRON 4 MG/2 ML VIAL IVP PRN (07:47)
[2023-09-15] MEDS: SODIUM CHLORIDE 0.9% 1,000 ML IV SCH ×2 (07:58→16:01)
[2023-09-15] MEDS ORDERED: PANTOPRAZOLE 40 MG/10 ML VIAL IV SCH (09:00)
[2023-09-15] MEDS ORDERED: HYDROcodone/APAP 5-325MG 1 EACH TAB PO PRN (14:12)
[2023-09-15] MEDS: LEVOFLOXACIN 500MG-D5W PMX 500 MG in DEXTROSE/WATER 1 100ML.BAG IVPB SCH (15:59)
[2023-09-15] MEDS: metroNIDAZOLE-NS PMX 500 MG in SALINE 1 100ML.BAG IVPB SCH (16:00)
[2023-09-15] MEDS: HEPARIN SODIUM,PORCINE 5,000 UNIT/ML 1 ML VIAL SQ SCH ×2 (16:00→20:32)
[2023-09-15] MEDS: NICOTINE 14MG/24HR PATCH TRANSDERM SCH (16:01)
--- NOTE | 2023-09-15 16:23 | P.GSCN ---
History of Present Illness Consult date: 09/15/23 History of present illness: CHIEF COMPLAINT: Abdominal pain HISTORY OF PRESENT ILLNESS: This is a 38-year-old female who presented with abdominal pain with nausea and vomiting 3 days. She reports her last bowel movement was yesterday. Pain is mostly across the lower abdomen. She did have some upper abdominal tenderness that has improved. She had a computed tomog marci scan abdomen and pelvis had shown severe wall thickening of small bowel in the mid abdomen with moderate surrounding edema consistent with high-grade enteritis. Patient denies any fever chills or sweats. Past surgical history does include diverticulitis with bowel resection and colostomy and reversal. Also history of cholecystectomy and incisional hernia repair. PAST MEDICAL HISTORY: Diverticulitis PAST SURGICAL HISTORY: See below MEDICATIONS: See below ALLERGIES: See below SOCIAL HISTORY: No illicit drug use. REVIEW OF SYSTEMS: CONSTITUTIONAL: Denies fever or chills. HEENT: Denies blurred vision, vision changes, or eye pain. Denies hemoptysis CARDIOVASCULAR: Denies chest pain or pressure. RESPIRATORY: No shortness of breath. GASTROINTESTINAL: See HPI for pertinent findings HEMATOLOGIC: Denies bleeding disorders. GENITOURINARY: Denies any blood in urine or increased urinary frequency. SKIN: Denies pruitis. Denies rash. PHYSICAL EXAM: VITAL SIGNS: Reviewed GENERAL: Well-developed in no acute distress. ABDOMEN: Soft. Obese. Nondistended. Tenderness to palpation across the lower abdomen NEUROLOGIC: Alert and oriented. Cranial nerves II through XII grossly intact. LABORATORY DATA: WBC 13.6 Hgb 16.3 platelets 293 Sodium 137 potassium 4.4 creatinine 0.87 IMAGING: Computed tomography scan as stated above ASSESSMENT: 1. Abdominal pain with nausea and vomiting 2. High-grade enteritis noted on computed tomography scan PLAN: -Place NG tube for decompression -Keep patient nothing by mouth -Continue IV fluid -Agree with adding antibiotics -Continue supportive care Physician Key Account Coordinator note has been reviewed by physician. Signing provider agrees with the documented findings, assessment, and plan of care. Past Medical History Past Medical History: No Reported History Additional Past Medical History / Comment(s): HX DIVERTICULITS, BOWEL RESECTION, CURRENT CONSTIPATION History of Any Multi-Drug Resistant Organisms: None Reported Past Surgical History: Bowel Resection, Section, Cholecystectomy, Hernia Repair, Tubal Ligation Additional Past Surgical History / Comment(s): 3 Sections,colostomy & reversal (Jul 2020), COLONOSCOPY, hernia repair 22 Past Anesthesia/Blood Transfusion Reactions: Previous Problems w/ Anesthesia Additional Past Anesthesia/Blood Transfusion Reaction / Comm: PATIENT STATES SHE FLAT LINED AFTER ALL 3 C- SECTIONS, NO PROBLEM WITH OTHER SURGERY. Past Psychological History: Anxiety, Depression, PTSD Additional Psychological History / Comment(s): no rx, coping well at this time Smoking Status: Current every day smoker Past Alcohol Use History: None Reported Additional Past Alcohol Use History / Comment(s): STARTED SMOKING AT AGE 18, SMOKES 1 pack per day Past Drug Use History: None Reported Additional Drug Use History / Comment(s): . - Past Family History Mother History Unknown: Yes Family Medical History: Cancer, CVA/TIA Additional Family Medical History / Comment(s): Thyroid cancer, CVA. Father Family Medical History: Deep Vein Thrombosis (DVT) Additional Family Medical History / Comment(s): blood clot shoulder Medications and Allergies Home Medications Medication Instructions Recorded Confirmed Type No Known Home Medications 09/15/23 09/15/23 History Allergies Allergy/AdvReac Type Severity Reaction Status Date / Time No Known Allergies Allergy Verified 09/15/23 07:34 Surgical - Exam Vital Signs Temp Pulse Resp BP Pulse Ox 98.1 F 109 H 20 131/87 99 09/14/23 22:21 09/14/23 22:21 09/14/23 22:21 09/14/23 22:21 09/14/23 22:21 Results - Labs 09/15/23 00:08 09/15/23 00:08 Abnormal Lab Results - Last 24 Hours (Table) 09/15/23 09/15/23 09/15/23 Range/Units 00:08 00:08 00:08 WBC 13.6 H (3.8-10.6) k/uL Hgb 16.3 H (11.4-16.0) gm/dL Hct 48.3 H (34.0-46.0) % Neutrophils # 9.3 H (1.3-7.7) k/uL Glucose 134 H (74-99) mg/dL Ur Specific [place] >1.050 H (1.001-1.035) Urine Protein Trace H (Negative) Urine Blood Trace H (Negative) Ur Squamous Epith Cells 10 H (0-4) /hpf Urine Mucus Rare H (None) /hpf Diabetes panel 09/15/23 Range/Units 00:08 Sodium 137 (137-145) mmol/L Potassium 4.4 (3.5-5.1) mmol/L Chloride 102 (98-107) mmol/L Carbon Dioxide 22 (22-30) mmol/L BUN 11 (7-17) mg/dL Creatinine 0.87 (0.52-1.04) mg/dL Glucose 134 H (74-99) mg/dL Calcium 9.5 (8.4-10.2) mg/dL AST 31 (14-36) U/L ALT 33 (4-34) U/L Alkaline Phosphatase 90 (38-126) U/L Total Protein 8.0 (6.3-8.2) g/dL Albumin 4.4 (3.5-5.0) g/dL Calcium panel 09/15/23 Range/Units 00:08 Calcium 9.5 (8.4-10.2) mg/dL Albumin 4.4 (3.5-5.0) g/dL Pituitary panel 09/15/23 Range/Units 00:08 Sodium 137 (137-145) mmol/L Potassium 4.4 (3.5-5.1) mmol/L Chloride 102 (98-107) mmol/L Carbon Dioxide 22 (22-30) mmol/L BUN 11 (7-17) mg/dL Creatinine 0.87 (0.52-1.04) mg/dL Glucose 134 H (74-99) mg/dL Calcium 9.5 (8.4-10.2) mg/dL Adrenal panel 09/15/23 Range/Units 00:08 Sodium 137 (137-145) mmol/L Potassium 4.4 (3.5-5.1) mmol/L Chloride 102 (98-107) mmol/L Carbon Dioxide 22 (22-30) mmol/L BUN 11 (7-17) mg/dL Creatinine 0.87 (0.52-1.04) mg/dL Glucose 134 H (74-99) mg/dL Calcium 9.5 (8.4-10.2) mg/dL Total Bilirubin 0.6 (0.2-1.3) mg/dL AST 31 (14-36) U/L ALT 33 (4-34) U/L Alkaline Phosphatase 90 (38-126) U/L Total Protein 8.0 (6.3-8.2) g/dL Albumin 4.4 (3.5-5.0) g/dL
--- NOTE | 2023-09-15 18:05 | HP ---
HISTORY AND PHYSICAL CHIEF COMPLAINT: Abdominal pain and vomiting. HISTORY OF PRESENT ILLNESS: This is a 38-year-old woman with a past medical history of previous ostomy, possible bowel obstruction, cholecystectomy, who was complaining of abdominal pain, nausea, and vomiting. The pain was felt situated diffusely. CT of the abdomen and pelvis done in the ER showed diffuse thickening of the small bowel in the midabdomen and moderate consistent with possible high-grade enteritis. There is no history of fever, rigors, or chills at this time. PAST MEDICAL HISTORY: History of bowel obstruction and ostomy. Rest of the history and rest of the chart is also reviewed. HOME MEDICATIONS: None. ALLERGIES: None. FAMILY HISTORY: History of CVA, TIA, cancer in the family. SOCIAL HISTORY: Smoking. REVIEW OF SYSTEMS: Fourteen-point review is negative as mentioned. PHYSICAL EXAMINATION: VITAL SIGNS: Pulse is 83, blood pressure , and respirations 16. CHEST: Few scattered rhonchi. ABDOMEN: Soft. Obese. Mild diffuse tenderness. No guarding. No rigidity. No mass. Bowel sounds diminished. No ascites. No mass palpable. LEGS: No edema. NERVOUS SYSTEM: Nonfocal. SKIN: No ulcer, rash, bleeding. JOINTS: No active deforming arthropathy. LABORATORY DATA: WBC 13.2. Rest of the labs are noted. ASSESSMENT: 1. Abdominal pain with possibly severe high-grade enteritis. 2. History of previous bowel obstruction and ostomy. 3. History of cholecystectomy. 4. Anxiety, depression, . 5. History of continued ongoing nicotine dependence. RECOMMENDATIONS: This is a 38-year-old woman presented with multiple complex medical issues. We will monitor the patient closely. Symptomatic treatment with empiric antibiotics, surgical consultation. Prognosis guarded because of multiple complex medical issues. DVT prophylaxis. See orders for details. Further recommendations to follow. MMODL / IJN: [id number] /
[2023-09-15] MEDS: PANTOPRAZOLE 40 MG/10 ML VIAL IV SCH (21:16)
[2023-09-15] MEDS: HYDROmorphone 0.5 MG/0.5 ML SYRINGE IVP PRN (21:16)
[2023-09-16] MEDS: HYDROmorphone 0.5 MG/0.5 ML SYRINGE IVP PRN ×6 (00:24→21:17)
[2023-09-16] MEDS: ONDANSETRON 4 MG/2 ML VIAL IVP PRN ×3 (00:24→23:34)
[2023-09-16] MEDS: metroNIDAZOLE-NS PMX 500 MG in SALINE 1 100ML.BAG IVPB SCH ×4 (00:42→23:27)
[2023-09-16] MEDS: SODIUM CHLORIDE 0.9% 1,000 ML IV SCH (05:37)
[2023-09-16 08:11] LABS: African American GFR (CKD) >90 (>60 ml/min/1.73 sqM); Anion Gap 7 mmol/L; Blood Urea Nitrogen 16 mg/dL (7-17); Calcium 8.4 mg/dL (8.4-10.2); Carbon Dioxide 21 mmol/L (22-30); Chloride 108 mmol/L (98-107); Glucose 101 mg/dL (74-99); Non-African American GFR(CKD) >90 (>60 ml/min/1.73 sqM); Sodium 136 mmol/L (137-145)
[2023-09-16 08:13] LABS: Basophils # (A) 0.1 k/uL (0-0.2); Basophils % (A) 1 %; Eosinophils # (A) 0.1 k/uL (0-0.7); Eosinophils % (A) 1 %; HCT 43.9 % (34.0-46.0); HGB 14.6 gm/dL (11.4-16.0); Hypochromasia Slight; Lymphocytes # (A) 2.9 k/uL (1.0-4.8); Lymphocytes % (A) 24 %; MCH 32.3 pg (25.0-35.0); MCHC 33.2 g/dL (31.0-37.0); MCV 97.3 fL (80.0-100.0); Mean Platelet Volume 7.7; Monocytes # (A) 0.7 k/uL (0-1.0); Monocytes % (A) 6 %; Neutrophils % (A) 66 %; Platelet Count 238 k/uL (150-450); RBC 4.51 m/uL (3.80-5.40); RDW 14.4 % (11.5-15.5); WBC 12.2 k/uL (3.8-10.6)
[2023-09-16 08:24] LABS: Potassium 4.4 mmol/L (3.5-5.1)
[2023-09-16] MEDS: HEPARIN SODIUM,PORCINE 5,000 UNIT/ML 1 ML VIAL SQ SCH ×2 (08:59→19:57)
[2023-09-16] MEDS: PANTOPRAZOLE 40 MG/10 ML VIAL IV SCH ×2 (09:00→19:57)
[2023-09-16] MEDS: NICOTINE 14MG/24HR PATCH TRANSDERM SCH (09:01)
[2023-09-16] MEDS: LACTATED RINGERS 1,000 ML IV SCH ×2 (10:11→23:27)
--- NOTE | 2023-09-16 13:29 | P.PN ---
Subjective Progress Note Date: 09/16/23 CHIEF COMPLAINT: Abdominal HISTORY OF PRESENT ILLNESS: Patient continues to have abdominal pain. Slightly improved from yesterday. She is having flatus. No bowel movement. She does report having dry heaves. Pain is worse with coughing. Minimal output through NG tube. Afebrile. WBC 12.2 Hgb 14.6 PHYSICAL EXAM: VITAL SIGNS: Reviewed. GENERAL: Well-developed in no acute distress. ABDOMEN: Softer. Obese. Nondistended. tenderness across upper abdomen NEUROLOGIC: Alert and oriented. Cranial nerves II through XII grossly intact. ASSESSMENT: 1. Abdominal pain with nausea and vomiting 2. High-grade enteritis noted on computed tomography scan PLAN: -Computed tomography scan abdomen and pelvis with oral contrast ordered for tomorrow further evaluation of abdominal pain -Continue NG tube for decompression -Keep patient nothing by mouth -Continue IV fluids -Continue antibiotics Physician Merchandise Carrier note has been reviewed by physician. Signing provider agrees with the documented findings, assessment, and plan of care. Objective - Vital Signs Vital signs: Vital Signs Temp 98.3 F 09/16/23 08:00 Pulse 91 09/16/23 08:00 Resp 14 09/16/23 08:00 BP 135/85 09/16/23 08:00 Pulse Ox 95 09/16/23 08:00 FiO2 Intake & Output 09/15/23 09/16/23 09/16/23 18:59 06:59 18:59 Intake Total 700 Balance 700 Weight 108.862 kg Intake: Intake, IV Titration 700 Amount Levofloxacin 500Mg-D5w 100 Pmx 500 mg In Dextrose/ Water 1 100ml.bag @ 100 mls/hr IVPB Q24H A[facility]NA Rx#: [id number] Sodium Chloride 0.9% 1, 500 000 ml @ 130 mls/hr IV . Q7H42M STA Rx#:[id number] metroNIDAZOLE-NS PMX 500 100 mg In Saline 1 100ml.bag @ 100 mls/hr IVPB Q8HR A[facility]NA Rx#:[id number] Other: Voiding Method Toilet # Voids 1 - Labs CBC & Chem 7: 09/16/23 07:30 09/16/23 07:30 Labs: Abnormal Lab Results - Last 24 Hours (Table) 09/16/23 09/16/23 Range/Units 07:30 07:30 WBC 12.2 H (3.8-10.6) k/uL Neutrophils # 8.0 H (1.3-7.7) k/uL Sodium 136 L (137-145) mmol/L Chloride 108 H (98-107) mmol/L Carbon Dioxide 21 L (22-30) mmol/L Glucose 101 H (74-99) mg/dL
[2023-09-16] MEDS: LEVOFLOXACIN 500MG-D5W PMX 500 MG in DEXTROSE/WATER 1 100ML.BAG IVPB SCH (15:14)
--- NOTE | 2023-09-16 16:23 | P.PN ---
Subjective Progress Note Date: 09/16/23 This is a pleasant 38 year old female. Comes in with abdominal pain nausea and vomiting. The nausea and vomiting at this point have resolved. Still having abdominal tenderness worse over the right upper quadrant. NG tube remains in place with 200 mls in the canister. No other output documented. Patient remains on course of antibiotics. WBC 12.2. today. Review of Systems Constitutional: Denied any fatigue denied any fever. Cardio vascular: denied any chest pain, palpitations Gastrointestinal: denied any nausea, vomiting, diarrhea, reports sore throat Pulmonary: Denied any shortness of breath cough Neurologic denied any new focal deficits All inpatient medications were reviewed and appropriate changes in these medications as dictated in the interval history and assessment and plan. PHYSICAL EXAMINATION: GENERAL: The patient is alert and oriented x3, not in any acute distress. Well developed, well nourished. HEENT: Pupils are round and equally reacting to light. EOMI. No scleral icterus. No conjunctival pallor. Normocephalic, atraumatic. No pharyngeal erythema. No thyromegaly. CARDIOVASCULAR: S1 and S2 present. No murmurs, rubs, or gallops. PULMONARY: Chest is clear to auscultation, no wheezing or crackles. ABDOMEN: Soft, nontender, nondistended, normoactive bowel sounds. No palpable organomegaly. NG tube in place. MUSCULOSKELETAL: No joint swelling or deformity. EXTREMITIES: No cyanosis, clubbing, or pedal edema. NEUROLOGICAL: Gross neurological examination did not reveal any focal deficits. SKIN: No rashes. Assessment Abdominal pain with severe high grade enteritis Hx chronic constipation History of diverticulitis requiring ostomy and reversal History of cholecystectomy Ongoing nicotine use GI prophylaxis: Protonix DVT prophylaxis: Heparin Full Code Plan Continue with NG tube and NPO Abdominal pelvis CT tomorrow General surgery following Continue supportive care with anti nausea medications Continue fluids changed to LR due to the hyperchloremia Repeat labs in the Am The impression and plan of care has been dictated by Ade Tavarez, Nurse Practitioner as directed. Dr. Maribel MD I have performed a history and physical examination and medical decision making of this patient, discussed the same with the dictator, and agree with the dictators assessment and plan as written, documented as a scribe. Based on total visit time, I have performed more than 50% of this visit. Objective - Vital Signs Vital signs: Vital Signs Temp 98 F 09/16/23 01:58 Pulse 91 09/16/23 01:58 Resp 17 09/16/23 01:58 BP 123/79 09/16/23 01:58 Pulse Ox 92 L 09/16/23 01:58 FiO2 Intake & Output 09/15/23 09/16/23 09/16/23 18:59 06:59 18:59 Intake Total 700 Balance 700 Weight 108.862 kg Intake: Intake, IV Titration 700 Amount Levofloxacin 500Mg-D5w 100 Pmx 500 mg In Dextrose/ Water 1 100ml.bag @ 100 mls/hr IVPB Q24H [facility] Rx#: [id number] Sodium Chloride 0.9% 1, 500 000 ml @ 130 mls/hr IV . Q7H42M STA Rx#:[id number] metroNIDAZOLE-NS PMX 500 100 mg In Saline 1 100ml.bag @ 100 mls/hr IVPB Q8HR A[facility] Rx#:[id number] Other: Voiding Method Toilet # Voids 1 - Labs CBC & Chem 7: 09/16/23 07:30 09/16/23 07:30 Labs: Abnormal Lab Results - Last 24 Hours (Table) 09/16/23 09/16/23 Range/Units 07:30 07:30 WBC 12.2 H (3.8-10.6) k/uL Neutrophils # 8.0 H (1.3-7.7) k/uL Sodium 136 L (137-145) mmol/L Chloride 108 H (98-107) mmol/L Carbon Dioxide 21 L (22-30) mmol/L Glucose 101 H (74-99) mg/dL Assessment and Plan Time with Patient: Less than 30
[2023-09-17] MEDS: HYDROmorphone 0.5 MG/0.5 ML SYRINGE IVP PRN ×6 (00:06→22:21)
[2023-09-17] MEDS: PANTOPRAZOLE 40 MG/10 ML VIAL IV SCH ×2 (08:41→21:06)
[2023-09-17] MEDS: HEPARIN SODIUM,PORCINE 5,000 UNIT/ML 1 ML VIAL SQ SCH ×2 (08:41→21:06)
[2023-09-17] MEDS: metroNIDAZOLE-NS PMX 500 MG in SALINE 1 100ML.BAG IVPB SCH ×3 (08:42→23:37)
[2023-09-17] MEDS: NICOTINE 14MG/24HR PATCH TRANSDERM SCH (08:44)
[2023-09-17 08:50] LABS: Basophils # (A) 0.1 k/uL (0-0.2); Basophils % (A) 1 %; Eosinophils % (A) 0 %; HCT 42.2 % (34.0-46.0); HGB 14.1 gm/dL (11.4-16.0); Lymphocytes # (A) 2.5 k/uL (1.0-4.8); Lymphocytes % (A) 24 %; MCH 31.3 pg (25.0-35.0); MCHC 33.3 g/dL (31.0-37.0); MCV 93.8 fL (80.0-100.0); Mean Platelet Volume 7.3; Monocytes # (A) 0.5 k/uL (0-1.0); Monocytes % (A) 5 %; Neutrophils % (A) 66 %; Platelet Count 266 k/uL (150-450); WBC 10.5 k/uL (3.8-10.6)
[2023-09-17 09:27] LABS: African American GFR (CKD) >90 (>60 ml/min/1.73 sqM); Anion Gap 10 mmol/L; Blood Urea Nitrogen 17 mg/dL (7-17); Calcium 8.8 mg/dL (8.4-10.2); Carbon Dioxide 21 mmol/L (22-30); Chloride 107 mmol/L (98-107); Glucose 99 mg/dL (74-99); Non-African American GFR(CKD) >90 (>60 ml/min/1.73 sqM); Potassium 4.3 mmol/L (3.5-5.1); Sodium 138 mmol/L (137-145)
[2023-09-17] MEDS: IOPAMIDOL CONTRAST (ORAL USE) VIAL PO PRN ×2 (10:44→11:49)
[2023-09-17] MEDS: ONDANSETRON 4 MG/2 ML VIAL IVP PRN ×3 (10:44→18:14)
[2023-09-17] MEDS: LACTATED RINGERS 1,000 ML IV SCH (11:49)
--- NOTE | 2023-09-17 13:23 | CT ---
EXAMINATION TYPE: CT abdomen pelvis wo con CT DLP: 1088.2 mGycm, Automated exposure control for dose reduction was used. DATE OF EXAM: 09/17/2023 12:28 PM COMPARISON: 09/15/2023 CLINICAL INDICATION:Female, 38 years old with history of abdominal pain; Abdominal pain intractable, enteritis TECHNIQUE: Axial CT abdomen pelvis wo con;Sagittal and coronal reformats were created on a separate workstation. Contrast used: mL of , (none if empty) Oral contrast used: without Oral Contrast (none if empty) FINDINGS: LOWER CHEST: Trace right pleural effusion. ABDOMEN LIVER: Unremarkable GALLBLADDER AND BILE DUCTS: The gallbladder is surgically absent. PANCREAS: Unremarkable. SPLEEN: Unremarkable. ADRENAL GLANDS: Unremarkable. KIDNEYS AND URETERS: No evidence of hydronephrosis or renal calculus. The ureters are unremarkable. PELVIS BLADDER: Unremarkable REPRODUCTIVE: Bilateral tubal ligation clips. ABDOMEN & PELVIS STOMACH AND BOWEL: Wall thickening of the mid abdomen ileum not all the different from 09/15/2023. Chay ogastric tube terminating in the gastric lumen. The appendix is normal. No evidence for obstruction. PERITONEUM/RETROPERITONEUM: No evidence of pneumoperitoneum. Small amount of free fluid in the abdome n. VASCULATURE: No evidence of aortic aneurysm. MUSCULOSKELETAL: No acute osseous abnormalities LYMPH NODES: No gross evidence for lymphadenopathy. SOFT TISSUE/ABDOMINAL WALL: Intra-abdominal surgical changes with suspected hernia mesh anteriorly an d subcutaneous tissues. IMPRESSION: 1. Persistent evidence for small bowel wall thickening involving the ileum suggestive of enteritis. Correlate with lactic acid to exclude ischemic etiologies. Correlate for history of Crohn's disease. Given anterior abdominal wall surgical changes correlate for adhesions. 2. Small abdominal ascites and right pleural effusion likely reactive.
--- NOTE | 2023-09-17 13:32 | P.PN ---
Subjective Progress Note Date: 09/17/23 CHIEF COMPLAINT: Abdominal HISTORY OF PRESENT ILLNESS: Patient reports that she is feeling better but does continue to have abdominal pain across upper abdomen more so when she coughs. She is having flatus. No bowel movement. NG tube with 300 and output since yesterday. Afebrile. WBC is down from 12.2-10.5 Hgb 14.1 platelets 266 sodium 138 potassium 4.3 creatinine 0.61 PHYSICAL EXAM: VITAL SIGNS: Reviewed. GENERAL: Well-developed in no acute distress. ABDOMEN: Soft. Obese. Nondistended. tenderness across upper abdomen NEUROLOGIC: Alert and oriented. Cranial nerves II through XII grossly intact. ASSESSMENT: 1. Abdominal pain with nausea and vomiting 2. High-grade enteritis noted on computed tomography scan PLAN: -Repeat computed tomography scan abdomen and pelvis with oral contrast ordered for today -Discontinue NG tube -Start clear liquid -Continue IV fluids -Continue antibiotics Physician Alteration Worker note has been reviewed by physician. Signing provider agrees with the documented findings, assessment, and plan of care. Objective - Vital Signs Vital signs: Vital Signs Temp 98.7 F 09/17/23 08:00 Pulse 96 09/17/23 08:00 Resp 17 09/17/23 02:00 BP 167/99 09/17/23 08:00 Pulse Ox 95 09/17/23 08:00 FiO2 Intake & Output 09/16/23 09/17/23 09/17/23 18:59 06:59 18:59 Intake Total 700 Balance 700 Intake: Intake, IV Titration 700 Amount Lactated Ringers 1,000 ml 400 @ 75 mls/hr IV .[id number] [facility]NA Rx#:[id number] Levofloxacin 500Mg-D5w 100 Pmx 500 mg In Dextrose/ Water 1 100ml.bag @ 100 mls/hr IVPB Q24H A[facility]NA Rx#: [id number] metroNIDAZOLE-NS PMX 500 200 mg In Saline 1 100ml.bag @ 100 mls/hr IVPB Q8HR A[facility]NA Rx#:[id number] Other: Voiding Method Toilet # Voids 1 - Labs CBC & Chem 7: 09/17/23 08:36 09/17/23 08:36 Labs: Abnormal Lab Results - Last 24 Hours (Table) 09/17/23 Range/Units 08:36 Carbon Dioxide 21 L (22-30) mmol/L
[2023-09-17] MEDS: LEVOFLOXACIN 500MG-D5W PMX 500 MG in DEXTROSE/WATER 1 100ML.BAG IVPB SCH (14:14)
--- NOTE | 2023-09-17 14:57 | P.PN ---
Subjective Progress Note Date: 09/17/23 This is a pleasant 38 year old female. Comes in with abdominal pain nausea and vomiting. The nausea and vomiting at this point have resolved. Still having abdominal tenderness worse over the right upper quadrant. NG tube remains in place with 200 mls in the canister. No other output documented. Patient remains on course of antibiotics. WBC 12.2. today. 09/17/2023 Patient is evaluated today resting in bed. NG tube in place with 200 mls of gastric output overnight, 400 ml total in the gastric drainage container. Underwent f/u abdominal /pelvis CT today showing persistent evidence for small bowel wall thickening involving the ileum suggestive of enteritis. Correlate with Lactic acid to exclude ischemic etiology, correlate for hx of Chron's disease. Given anterior abdominal wall surgical changes correlate for adhesions. Small abdominal ascites and right pleural effusion likely reactive. Continues on IV levofloxacin and IV metronidazole. On LR at 75mls/hr. She is hungry and tearful hoping the NG tube can come out today. Review of Systems Constitutional: Denied any fatigue denied any fever. Cardio vascular: denied any chest pain, palpitations Gastrointestinal: denied any nausea, vomiting, diarrhea, reports sore throat Pulmonary: Denied any shortness of breath cough Neurologic denied any new focal deficits All inpatient medications were reviewed and appropriate changes in these medica tions as dictated in the interval history and assessment and plan. PHYSICAL EXAMINATION: GENERAL: The patient is alert and oriented x3, not in any acute distress. Well developed, well nourished. HEENT: Pupils are round and equally reacting to light. EOMI. No scleral icterus. No conjunctival pallor. Normocephalic, atraumatic. No pharyngeal erythema. No thyromegaly. CARDIOVASCULAR: S1 and S2 present. No murmurs, rubs, or gallops. PULMONARY: Chest is clear to auscultation, no wheezing or crackles. ABDOMEN: Soft, nontender, nondistended, normoactive bowel sounds. No palpable organomegaly. NG tube in place. MUSCULOSKELETAL: No joint swelling or deformity. EXTREMITIES: No cyanosis, clubbing, or pedal edema. NEUROLOGICAL: Gross neurological examination did not reveal any focal deficits. SKIN: No rashes. Assessment Abdominal pain with severe high grade enteritis Hx chronic constipation History of diverticulitis requiring ostomy and reversal History of cholecystectomy Ongoing nicotine use GI prophylaxis: Protonix DVT prophylaxis: Heparin Full Code Plan Diet per general surgery has been advanced to clear liquid. Continue supportive care with anti nausea medications Continue fluids changed to LR due to the hyperchloremia which has resolved. Continue antibiotics. Repeat labs in the Am The impression and plan of care has been dictated by Ade Tavarez, Nurse Practitioner as directed. Dr. Maribel MD I have performed a history and physical examination and medical decision making of this patient, discussed the same with the dictator, and agree with the dictators assessment and plan as written, documented as a scribe. Based on total visit time, I have performed more than 50% of this visit. Objective - Vital Signs Vital signs: Vital Signs Temp 98.7 F 09/17/23 08:00 Pulse 96 09/17/23 08:00 Resp 17 09/17/23 02:00 BP 167/99 09/17/23 08:00 Pulse Ox 95 09/17/23 08:00 FiO2 Intake & Output 09/16/23 09/17/23 09/17/23 18:59 06:59 18:59 Intake Total 700 Balance 700 Intake: Intake, IV Titration 700 Amount Lactated Ringers 1,000 ml 400 @ 75 mls/hr IV .[id number] A[facility]NA Rx#:[id number] Levofloxacin 500Mg-D5w 100 Pmx 500 mg In Dextrose/ Water 1 100ml.bag @ 100 mls/hr IVPB Q24H ALAYNA Rx#: [id number] metroNIDAZOLE-NS PMX 500 200 mg In Saline 1 100ml.bag @ 100 mls/hr IVPB Q8HR A[facility] Rx#:[id number] Other: Voiding Method Toilet # Voids 1 - Labs CBC & Chem 7: 09/17/23 08:36 09/17/23 08:36 Labs: Abnormal Lab Results - Last 24 Hours (Table) 09/17/23 Range/Units 08:36 Carbon Dioxide 21 L (22-30) mmol/L Assessment and Plan Time with Patient: Less than 30
[2023-09-17] MEDS ORDERED: LOSARTAN 25 MG TAB PO STA (17:45)
[2023-09-18] MEDS: LACTATED RINGERS 1,000 ML IV SCH ×2 (01:46→15:07)
[2023-09-18] MEDS: HYDROmorphone 0.5 MG/0.5 ML SYRINGE IVP PRN ×2 (03:54→10:58)
[2023-09-18] MEDS: metroNIDAZOLE-NS PMX 500 MG in SALINE 1 100ML.BAG IVPB SCH ×2 (08:42→17:09)
[2023-09-18] MEDS: HEPARIN SODIUM,PORCINE 5,000 UNIT/ML 1 ML VIAL SQ SCH (08:45)
[2023-09-18] MEDS: NICOTINE 14MG/24HR PATCH TRANSDERM SCH ×2 (08:45→08:47)
[2023-09-18] MEDS: PANTOPRAZOLE 40 MG/10 ML VIAL IV SCH (08:45)
--- NOTE | 2023-09-18 12:29 | P.PN ---
Subjective Progress Note Date: 09/18/23 CHIEF COMPLAINT: Abdominal Pain HISTORY OF PRESENT ILLNESS: NG tube was discontinued yesterday. Patient tolerating clear liquids. The broth caused a burning sensation in her stomach. She is having flatus. No bowel movement. She does report nausea that improves with the Zofran. Afebrile. WBC 10.5 yesterday. Computed tomography scan reveals persistent evidence for small bowel wall thickening involving the ileum suggestive of enteritis given anterior abdominal wall surgical changes correlated for adhesions. Small abdominal ascites and right pleural effusion likely reactive. Patient denies any history of Crohn's. PHYSICAL EXAM: VITAL SIGNS: Reviewed. GENERAL: Well-developed in no acute distress. ABDOMEN: Soft. Obese. Nondistended. tenderness across upper abdomen NEUROLOGIC: Alert and oriented. Cranial nerves II through XII grossly intact. ASSESSMENT: 1. Enteritis is improving PLAN: -Continue conservative management -Continue clear liquid diet -Continue antiemetics -Continue antibiotics -Continue IV fluids -Encourage patient to ambulate Physician Assistant Professor Of Religion note has been reviewed by physician. Signing provider agrees with the documented findings, assessment, and plan of care. Objective - Vital Signs Vital signs: Vital Signs Temp 98.0 F 09/18/23 07:22 Pulse 85 09/18/23 07:22 Resp 17 09/18/23 07:22 BP 125/74 09/18/23 07:22 Pulse Ox 94 L 09/18/23 07:22 FiO2 Intake & Output 09/17/23 09/18/23 09/18/23 18:59 06:59 18:59 Intake Total 300 1480 Balance 300 1480 Intake: Intake, IV Titration 300 1000 Amount Lactated Ringers 1,000 ml 900 @ 75 mls/hr IV .[id number] ALAYNA Rx#:[id number] Levofloxacin 500Mg-D5w 100 Pmx 500 mg In Dextrose/ Water 1 100ml.bag @ 100 mls/hr IVPB Q24H ALAYNA Rx#: [id number] metroNIDAZOLE-NS PMX 500 200 100 mg In Saline 1 100ml.bag @ 100 mls/hr IVPB Q8HR ALAYNA Rx#:[id number] Oral 480 Other: Voiding Method Toilet # Voids 1 - Labs CBC & Chem 7: 09/17/23 08:36 09/17/23 08:36
[2023-09-18 13:03] VITALS: BP 123/85; PULSE 89; RESP 16; TEMP 98.2
[2023-09-18] MEDS: LEVOFLOXACIN 500MG-D5W PMX 500 MG in DEXTROSE/WATER 1 100ML.BAG IVPB SCH (15:04)
--- NOTE | 2023-09-21 22:31 | P.DS ---
Providers Date of admission: 09/15/23 07:47 Attending physician: Patricia Ocampo MD Consults: 09/15/23 07:47 Consult Physician Routine Consulting Provider: Jez Harrington Consult Reason/Comments: Intractble abdominal pain. Do you want consulting provider notified?: Yes Primary care physician: Stated None Hospital Course: Final Diagnosis Abdominal pain with severe high grade enteritis improved. Hx chronic constipation History of diverticulitis requiring ostomy and reversal History of cholecystectomy Ongoing nicotine use Discharge Disposition Medically stable for discharge. Patient to see Dr. Harrington in 1 week. Recommending course of oral flagyl and levaquin on discharge to complete course of antibiotic therapy. Patient currently looking for a new PCP and has been given a list of local pcps in the area on discharge. Repeat CBC and BMP in 2 to 3 days. Hospital Course This is a pleasant 38 year old female has medical history of cholecystectomy, chronic constipation, diverticulitis with ostomy and reversal. Comes in with abdominal pain nausea and vomiting. Had an abdominal pelvis CT showing severe wall thickening of small bowel in the mid abdomen with moderate surrounding edema, consistent with high-grade enteritis. Patient was admitted to the hospital with surgical consult and had NG tube placed for decompression. Bowel rest and NPO. The nausea and vomiting at this point have resolved as well as the abdominal tenderness. Patient on empiric antibiotics with IV metronidazole and IV levofloxacin. Had follow up abdominal pelvis CT showing persistent evidence for small bowel wall thickening involving the ileum suggestive of enteritis. Correlated with lactic acid to exclude ischemic etiology. Correlate for history of Chron's disease. Given anterior abdominal wall surgical changes correlate for adhesions. Small abdominal ascites and right pleural effusion likely reactive. Patient had symptomatic improvement and general surgery recommending to continue with conservative management for the enteritis. NG tube was discontinue and patient tolerated and upgraded diet and was cleared for DC home with close follow up and course of oral antibiotic therapy. Patient did have mildly elevated WBC of 13.6 on discharge which has normalized to 10.5 Sodium 138, BUN 17, creatinine 0.61. Troponin negative. UA normal. Viral panel normal. Please see medication reconciliation for a list of current medications. Thank you for allowing us to participate in the care of this patient. The impression and plan of care has been dictated by Ade Tavarez, Nurse Practitioner as directed. Dr. Maribel MD I have performed a history and physical examination and medical decision making of this patient, discussed the same with the dictator, and agree with the dictators assessment and plan as written, documented as a scribe. Based on total visit time, I have performed more than 50% of this visit. Patient Condition at Discharge: Stable Plan - Discharge Summary Discharge Rx Participant: No New Discharge Prescriptions: New metroNIDAZOLE [Flagyl] 500 mg PO TID 3 Days #9 tab Levofloxacin [Levaquin] 500 mg PO DAILY 3 Days #3 tab Pantoprazole [Protonix] 40 mg PO DAILY 7 Days #7 tab Ondansetron [Zofran] 4 mg PO Q8HR PRN #12 tab PRN Reason: Nausea Discharge Medication List Levofloxacin [Levaquin] 500 mg PO DAILY 3 Days #3 tab 09/18/23 [Rx] Ondansetron [Zofran] 4 mg PO Q8HR PRN #12 tab 09/18/23 [Rx] Pantoprazole [Protonix] 40 mg PO DAILY 7 Days #7 tab 09/18/23 [Rx] metroNIDAZOLE [Flagyl] 500 mg PO TID 3 Days #9 tab 09/18/23 [Rx] Follow up Appointment(s)/Referral(s): Jez Harrington MD [STAFF PHYSICIAN] - 1 Week (Office closed at time of discharge. Patient to make own follow-up appt. ) Ambulatory/Diagnostic Orders: Basic Metabolic Panel [LAB.AMB] Location: None Selected Complete Blood Count w/diff [LAB.AMB] Time Frame: 3 Days, Location: None Selected Patient Instructions/Handouts: Metronidazole (By mouth), Ondansetron (By mouth), Levofloxacin (By mouth), Pantoprazole (By mouth), Gastroenteritis (DC), Abdominal Pain (ED) Activity/Diet/Wound Care/Special Instructions: Please establish a Primary Care Physician Discharge/Stand Alone Forms: Area PCPs Discharge Disposition: HOME SELF-CARE
== END 2023-09-18 17:41 | disposition home or self-care (01) | DRG 249 ==
LOC: EC 21:56 → 5NMEDONC 09-15 07:47 → 1SOBS 09-15 10:40 → 5NMEDONC 09-17 16:45
PROVIDERS: ADMIT Internal Medicine; ATTEND Internal Medicine
PROC: 0D9670Z Drainage of Stomach with Drainage Device, Via Natural or Artificial Opening (ICD-10-PCS; principal; 2023-09-15)
DX: K52.9 Noninfective gastroenteritis and colitis, unspecified (principal); K50.90 Crohn's disease, unspecified, without complications; K59.09 Other constipation; Z90.49 Acquired absence of other specified parts of digestive tract; Z11.52 Encounter for screening for COVID-19; E87.8 Other disorders of electrolyte and fluid balance, not elsewhere classified; J90 Pleural effusion, not elsewhere classified; R18.8 Other ascites; F17.210 Nicotine dependence, cigarettes, uncomplicated; F32.A Depression, unspecified; Z87.19 Personal history of other diseases of the digestive system; F43.10 Post-traumatic stress disorder, unspecified
CPT/HCPCS: 36415; 74176; 74177; 80048; 80053; 81001; 81025; 82150; 83690; 84484; 85025; 85610; 85730; 87636; 96361; 96374; 96375; 96376; 99285

== ENCOUNTER 2023-10-20 09:54 | Day surgery (SDC) | payer OTHER ==
[2023-10-20] MEDS: LACTATED RINGERS 1,000 ML IV SCH (10:39)
[2023-10-20 10:45] VITALS: TEMP 98.3
[2023-10-20] MEDS ORDERED: fentaNYL (PF) 50 MCG/ML 2 ML AMP ONE (11:43)
[2023-10-20] MEDS ORDERED: PROPOFOL 10 MG/ML 20 ML VIAL IV ONE (11:43)
[2023-10-20] MEDS ORDERED: LIDOCAINE 1% INJ 10MG/ML (20 ML MDV) ONE (11:43)
--- NOTE | 2023-10-20 11:57 | P.OP ---
Date of Procedure: 10/20/23 Preoperative Diagnosis: Constipation Postoperative Diagnosis: Diverticulosis Right colon polyp Procedure(s) Performed: Colonoscopy Anesthesia: MAC Surgeon: Jez Harrington Pathology: other (Right colon polyp) Condition: stable Disposition: PACU Description of Procedure: The patient was placed on the endoscopy table in the lateral position. She received IV sedation. Th digital rectal exam was performed. This revealed no abnormalities. Flexible colonoscope was then placed patient anus passed throug hout the entire colon. The ileocecal valve was visualized. The cecum appeared normal. In the right colon there was a possible polyp seen was removed with cold forcep. The transverse colon appeared normal. In the descending colon there was evidence of diverticulosis. Patient previously with resection. The colorectal anastomosis was visualized this appeared normal. The rectum. Normal. Scope withdrawn for the patient. There is no evidence of a colorectal anastomotic stricture.
[2023-10-20 12:15] VITALS: RESP 16
[2023-10-20 12:45] VITALS: BP 141/86; PULSE 68
== END 2023-10-20 13:36 | disposition home or self-care (01) ==
LOC: ORWHC2ENDO 09:54
PROVIDERS: ATTEND Surgery
DX: D12.2 Benign neoplasm of ascending colon (principal); K59.00 Constipation, unspecified; K57.30 Diverticulosis of large intestine without perforation or abscess without bleeding; F17.210 Nicotine dependence, cigarettes, uncomplicated; Z98.891 History of uterine scar from previous surgery; Z79.899 Other long term (current) drug therapy
CPT/HCPCS: 81025; 88305; 45380; J2001; J3010; J2704

== ENCOUNTER → 2023-10-27 | Outpatient (CLI) | payer OTHER ==
--- NOTE | 2023-10-27 10:46 | CT ---
EXAMINATION TYPE: CT abdomen pelvis w con DATE OF EXAM: 10/27/2023 COMPARISON: 09/17/2023 HISTORY: 38 year-old female A09, gastroenteritis, ostomy bag, pain in upper abdomen. TECHNIQUE: Contiguous axial scanning of the abdomen and pelvis following administration of 100 ml Iso hanna 300 IV contrast. Delayed images through the kidneys and coronal/sagittal reconstructions perform ed. CT DLP: 1656 mGycm Automated exposure control for dose reduction was used. FINDINGS: Heart normal size without pericardial effusion. Lung bases clear without pleural effusion. Liver enlarged at 20.4 cm. No focal lesion seen. Portal venous system is patent. No biliary ductal di latation. Cholecystectomy clips. Adrenal glands, kidneys, spleen, pancreas within normal limits. Suspect previous ventral abdominal wall mesh repair. Prominent reticulations remain within the surrou nding subcutaneous adipose. Masslike irregular thickening infraumbilical midline likely scarring. There may be some interposed pl atelike fluid within measuring 3.6 x 0.6 cm. Scattered mild mesenteric edema shows improvement compared to 09/17/2023. No dilated small bowel, free fluid, or free air. The previous ileal wall thickening has resolved. Normal appendix. Mild overall stable wording. Staple line from previous resection and end to side re- anastomosis at the rectosigmoid junction. Uterus is anteverted. Both ovaries are visualized. 3.1 cm dominant follicle or functional cyst of the right ovary. Bilateral tubal ligation clips. Very heterogeneous myometrium. Underlying adenomyosis m ay be present and can be correlated clinically. No abnormal fluid collection in the pelvis or pelvic lymphadenopathy. Bones: Transitional lumbosacral segment is noted as a lumbarized S1. No osseous destructive process. IMPRESSION: 1. PREVIOUS SURGERY ALONG THE VENTRAL ABDOMINAL WALL WITH MASSLIKE IRREGULAR SCAR TISSUE AT THE INFRA UMBILICAL MIDLINE WHICH APPEARS SIMILAR. SOME FAT STRANDING REMAINS HERE. THIS COULD REPRESENT ADDITI ONAL SCARRING. CORRELATE TO EXCLUDE CELLULITIS. 2. SCATTERED MILD MESENTERIC EDEMA REMAINS THOUGH CONSIDERABLY IMPROVED FROM 09/17/2023. THE ABNORMAL ILEAL WALL THICKENING AND MILD PELVIC FREE FLUID HAS RESOLVED. 3. EVIDENCE OF PRIOR RESECTION AND END TO SIDE REANASTOMOSIS RECTOSIGMOID JUNCTION. 4. VERY HETEROGENEOUS MYOMETRIUM MAY REFLECT UNDERLYING ADENOMYOSIS. ALSO, A 3.1 CM DOMINANT FOLLICLE OR FUNCTIONAL CYST IN THE RIGHT OVARY.
== END | disposition home or self-care (01) ==
LOC: RADCTMAIN 08:02
PROVIDERS: ATTEND Surgery
DX: N85.8 Other specified noninflammatory disorders of uterus (principal); N83.291 Other ovarian cyst, right side; K56.699 Other intestinal obstruction unspecified as to partial versus complete obstruction; A09 Infectious gastroenteritis and colitis, unspecified; R60.0 Localized edema; Z93.3 Colostomy status; Z98.890 Other specified postprocedural states
CPT/HCPCS: 74177; Q9967